=== PATIENT | male | born 1965 | race Caucasian/White ===

== ENCOUNTER 2017-11-23 17:58 | Observation (INO) | payer OTHER ==
[2017-11-23] MEDS ORDERED: SODIUM CHLORIDE 0.9% 1,000 ML IV STA ×2 (18:18)
[2017-11-23] MEDS ORDERED: LORazepam 2 MG/ML INJ IV STA (18:18)
[2017-11-23 18:37] LABS: INR 1.1 (<1.2); Partial Thromboplastin Time 26.8 sec (22.0-30.0); Prothrombin Time 10.4 sec (9.0-12.0)
--- NOTE | 2017-11-23 18:40 | ED ---
General Adult HPI - General Chief complaint: Dizziness Stated complaint: Chest Pain. Time Seen by Provider: 11/23/17 18:09 Source: patient Mode of arrival: EMS Limitations: no limitations - History of Present Illness Initial comments: This 52-year-old male presents with a complaint of feeling lightheaded. This occurred approximately 2 and half hours prior to arrival. He states that he had some palpitations and he felt presyncopal at points. This seemed to be worse when he was standing. He also had some shortness of breath but denies any chest pain. He states that he had numbness and tingling in his bilateral arms. He denies any chest tightness, chest burning, or chest pain whatsoever. He denies any abnormal sensations to his chest and this is in contrast to the nursing Notes. He denies any previous cardiac or pulmonary problems. He also states that he felt somewhat dizzy last evening while he was cleaning his baseboards. No other identifiable complaints or modifying factors. There is no leg pain or swelling or history of DVT or PE. He denies any history of anxiety reactions or panic attacks. He denies any current significant stress. - Related Data Home Medications Medication Instructions Recorded Confirmed Ibuprofen [Motrin Ib] 400 mg PO Q6HR PRN 11/23/17 11/23/17 Allergies Allergy/AdvReac Type Severity Reaction Status Date / Time Penicillins Allergy Swelling Verified 11/23/17 18:33 Review of Systems ROS Statement: Those systems with pertinent positive or pertinent negative responses have been documented in the HPI. ROS Other: All systems not noted in ROS Statement are negative. Past Medical History Past Medical History: No Reported History History of Any Multi-Drug Resistant Organisms: None Reported Past Surgical History: Cholecystectomy Additional Past Surgical History / Comment(s): vasectomy Past Psychological History: No Psychological Hx Reported Smoking Status: Current every day smoker Past Alcohol Use History: Occasional Past Drug Use History: None Reported General Exam - General Exam Comments Initial Comments: GENERAL: The patient is well nourished and well hydrated. VITAL SIGNS: Heart rate, blood pressure, respiratory rate reviewed as recorded in nurse's notes. EYES: Pupils are round and reactive. Extraocular movements are intact. No conjunctival / lid redness or swelling. ENT: No external evidence of injury, swelling, or ecchymosis. Airway is patent. Throat is clear. NECK: Nontender. No swelling or evidence of injury. No subcutaneous emphysema. Trachea is midline. No thyroid mass. HEART: Regular rate and rhythm. Good peripheral pulses. LUNGS/CHEST: Breath sounds clear and equal bilaterally. No rales, rhonchi, or wheezes. No ecchymosis, subcutaneous emphysema, or tenderness. ABDOMEN: Abdomen soft without tenderness. No palpable masses or organomegaly. No peritoneal signs. No abdominal wall swelling or ecchymosis. EXTREMITIES: No extremity tenderness. Normal muscle tone and function. No thoracolumbar tenderness. NEUROLOGIC: Sensation is grossly intact. Cranial nerve exam reveals face is symmetrical, tongue is midline, speech is clear. SKIN: No abrasions or ecchymosis is noted. No induration or masses noted. PSYCHIATRIC: Alert and oriented. Appropriate behavior and judgment. Limitations: no limitations Course Vital Signs 11/23/17 11/23/17 11/23/17 17:59 18:10 19:20 Temperature 98.1 F Pulse Rate 88 74 Pulse Rate [ 78 Sitting] Pulse Rate [ 90 Standing] Pulse Rate [ 73 Supine] Respiratory 20 18 Rate Blood Pressure 166/93 142/80 Blood Pressure 153/90 [Sitting] Blood Pressure 145/87 [Supine] O2 Sat by Pulse 97 98 Oximetry Medical Decision Making - Medical Decision Making The patient was seen and examined. All diagnostics were reviewed. The EKG shows a normal sinus rhythm at a rate of 74. There is no acute ST-T wave changes noted. The MD intervals 184, QRS duration is 90, and the QTC intervals 421. The patient did receive some Ativan intravenously. He later receives some aspirin as well as some Nitropaste for possible dyspnea related anginal equivalent. He also had a chest x-ray done which does not show any acute processes. The laboratory thus far has been fairly unremarkable. Possibility of this being related to acute coronary syndrome is possible. The possibility of a heart arrhythmia is possible as well. No arrhythmias noted less far in the ER. He states that he was unable to ambulate. It is felt as though he benefit from admission and further workup. He is agreeable. Case was discussed with internal medicine and they are agreeable with admission. - Lab Data Result diagrams: 11/23/17 18:06 Lab Results 11/23/17 11/23/17 11/23/17 Range/Units 18:06 18:06 18:06 PT 10.4 (9.0-12.0) sec INR 1.1 (<1.2) APTT 26.8 (22.0-30.0) sec Sodium 142 (137-145) mmol/L Potassium 3.9 (3.5-5.1) mmol/L Chloride 105 (98-107) mmol/L Carbon Dioxide 27 (22-30) mmol/L Anion Gap 10 mmol/L BUN 22 H (9-20) mg/dL Creatinine 0.97 (0.66-1.25) mg/dL Est GFR (MDRD) Af Amer >60 (>60 ml/min/1.73 sqM) Est GFR (MDRD) Non-Af >60 (>60 ml/min/1.73 sqM) Glucose 84 (74-99) mg/dL Calcium 10.1 (8.4-10.2) mg/dL Total Bilirubin 0.5 (0.2-1.3) mg/dL AST 18 (17-59) U/L ALT 28 (21-72) U/L Alkaline Phosphatase 54 (38-126) U/L Troponin I <0.012 (0.000-0.034) ng/mL Total Protein 6.9 (6.3-8.2) g/dL Albumin 4.1 (3.5-5.0) g/dL Disposition Clinical Impression: Weakness, Dyspnea, Hypertension, Palpitations, Dizziness Disposition: ADMITTED IP TO THIS [facility] Condition: Fair Time of Disposition: 20:04 Decision Date: 11/23/17 Decision Time: 20:04
[2017-11-23 18:43] LABS: ALT 28 U/L (21-72); AST 18 U/L (17-59); Albumin 4.1 g/dL (3.5-5.0); Alkaline Phosphatase 54 U/L (38-126); Anion Gap 10 mmol/L; Blood Urea Nitrogen 22 mg/dL (9-20); Calcium 10.1 mg/dL (8.4-10.2); Carbon Dioxide 27 mmol/L (22-30); Chloride 105 mmol/L (98-107); Glucose 84 mg/dL (74-99); Potassium 3.9 mmol/L (3.5-5.1); Sodium 142 mmol/L (137-145); Total Bilirubin 0.5 mg/dL (0.2-1.3); Total Protein 6.9 g/dL (6.3-8.2)
--- NOTE | 2017-11-23 19:10 | XR ---
EXAMINATION TYPE: XR chest 2V DATE OF EXAM: 11/23/2017 COMPARISON: NONE HISTORY: Dizziness TECHNIQUE: Frontal and lateral views of the chest are obtained. FINDINGS: There is no heart failure nor confluent pneumonic infiltrate. Costophrenic angles are mel r. There are chest leads. Bony thorax is intact. IMPRESSION: No active cardiopulmonary disease. Normal heart.
[2017-11-23 19:21] VITALS: RESP 18
[2017-11-23] MEDS ORDERED: NITROGLYCERIN OINT 1 INCH/GM PACKET TOPICAL STA (20:05)
[2017-11-23] MEDS ORDERED: ASPIRIN 81 MG PO STA (20:05)
[2017-11-23] MEDS ORDERED: NITROGLYCERIN SL TABS 0.4 MG TAB SUBLINGUAL PRN (20:18)
[2017-11-23] MEDS ORDERED: IBUPROFEN 400 MG TAB PO PRN (20:21)
[2017-11-23 21:16] VITALS: BMI 23.7
[2017-11-23] MEDS: METOPROLOL TARTRATE 25 MG TAB PO SCH (22:28)
[2017-11-23] MEDS: FAMOTIDINE 20 MG/2 ML VIAL IV SCH (22:28)
[2017-11-23] MEDS: NICOTINE 21MG/24HR PATCH TRANSDERM SCH (22:28)
[2017-11-23] MEDS: NITROGLYCERIN OINT 1 INCH/GM PACKET TOPICAL SCH (22:29)
[2017-11-23 23:13] LABS: Basophils % (A) 1 %; Eosinophils # (A) 0.1 k/uL (0-0.7); Eosinophils % (A) 1 %; HCT 44.8 % (39.0-53.0); HGB 14.6 gm/dL (13.0-17.5); Lymphocytes # (A) 2.1 k/uL (1.0-4.8); Lymphocytes % (A) 26 %; MCH 29.6 pg (25.0-35.0); MCHC 32.6 g/dL (31.0-37.0); MCV 90.7 fL (80.0-100.0); Monocytes # (A) 0.6 k/uL (0-1.0); Monocytes % (A) 7 %; Neutrophils % (A) 63 %; Platelet Count 273 k/uL (150-450); RBC 4.94 m/uL (4.30-5.90); RDW 13.8 % (11.5-15.5); WBC 7.8 k/uL (3.8-10.6)
[2017-11-24 01:58] LABS: Creatine Kinase 119 U/L (55-170)
[2017-11-24 02:09] LABS: Troponin I <0.012 ng/mL (0.000-0.034)
[2017-11-24] MEDS: NITROGLYCERIN OINT 1 INCH/GM PACKET TOPICAL SCH (05:32)
[2017-11-24 07:42] LABS: Cholesterol 151 mg/dL (<200); HDL Cholesterol 35 mg/dL (40-60); LDL Cholesterol,Calculated 94 mg/dL (0-99); Triglycerides 112 mg/dL (<150)
[2017-11-24 07:54] LABS: Creatine Kinase 104 U/L (55-170)
[2017-11-24 08:07] LABS: Creatine Kinase MB 0.9 ng/mL (0.0-2.4); Troponin I <0.012 ng/mL (0.000-0.034)
[2017-11-24] MEDS ORDERED: ENOXAPARIN 40 MG/0.4 ML SYRINGE SQ SCH (09:00)
[2017-11-24] MEDS ORDERED: ASPIRIN 325 MG TAB PO SCH (09:00)
--- NOTE | 2017-11-24 09:04 | P.CRDCN ---
History of Present Illness Consult date: 11/24/17 Chief complaint: Palpitation History of present illness: This is a pleasant 52-year-old gentleman with no significant past medical history presented to the hospital complaining of palpitations. The patient has been experiencing palpitations for long time but for the last 24 hours it was more prominent and was constant in the chest. He did not have any symptoms of chest pain or discomfort with it but he felt dizzy and lightheaded and almost passing out. He is not aware of any prior history of coronary artery disease or congestive heart failure or cardiac arrhythmia and never seen any commercial loan processor in the past. Beside that he does not have any diabetes or hypertension or dyslipidemia. The patient does smoke and has no family history of coronary artery disease. The EKG showed sinus rhythm without any significant ST or T-wave abnormalities. The cardiac enzymes were checked and came in to be unremarkable. The chest x- ray did not show any acute abnormalities. Past Medical History Past Medical History: No Reported History History of Any Multi-Drug Resistant Organisms: None Reported Past Surgical History: Cholecystectomy Additional Past Surgical History / Comment(s): vasectomy Past Anesthesia/Blood Transfusion Reactions: No Reported Reaction Smoking Status: Current every day smoker - Past Family History Father Additional Family Medical History / Comment(s): heart issues with blood vessels. Mother Family Medical History: No Reported History Medications and Allergies Home Medications Medication Instructions Recorded Confirmed Type Ibuprofen [Motrin Ib] 400 mg PO Q6HR PRN 11/23/17 11/23/17 History Allergies Allergy/AdvReac Type Severity Reaction Status Date / Time Penicillins Allergy Swelling Verified 11/23/17 21:06 Physical Exam Vitals: Vital Signs Temp Pulse Pulse Pulse Pulse Pulse Resp 11/24/17 08:00 98.0 F 55 L 18 11/24/17 04:00 18 11/24/17 03:41 98 F 60 18 11/24/17 00:00 18 11/23/17 22:30 77 81 73 18 11/23/17 21:10 18 11/23/17 21:04 97.4 F L 67 18 11/23/17 20:44 97.8 F 73 18 11/23/17 19:20 74 18 11/23/17 18:10 78 90 73 11/23/17 17:59 98.1 F 88 20 BP BP BP BP BP Pulse Ox 11/24/17 08:00 93/51 96 11/24/17 04:00 11/24/17 03:41 103/56 94 L 11/24/17 00:00 11/23/17 22:30 118/72 123/74 129/76 98 11/23/17 21:10 11/23/17 21:04 143/85 97 11/23/17 20:44 157/94 97 11/23/17 19:20 142/80 98 11/23/17 18:10 153/90 145/87 11/23/17 17:59 166/93 97 Intake and Output 11/23/17 11/24/17 11/24/17 22:59 06:59 14:59 Intake Total 250 Balance 250 Intake: Oral 250 Other: # Voids 1 Weight 83.9 kg - Constitutional General appearance: no acute distress - Respiratory Respiratory: bilateral: CTA - Cardiovascular Rhythm: regular Heart sounds: normal: S1, S2 Results 11/23/17 18:06 11/23/17 18:06 Cardiac Enzymes 11/23/17 11/23/17 11/24/17 Range/Units 18:06 18:06 01:10 AST 18 (17-59) U/L CK-MB (CK-2) 1.0 (0.0-2.4) ng/mL Troponin I <0.012 <0.012 (0.000-0.034) ng/mL 11/24/17 Range/Units 06:23 AST (17-59) U/L CK-MB (CK-2) 0.9 (0.0-2.4) ng/mL Troponin I <0.012 (0.000-0.034) ng/mL Coagulation 11/23/17 Range/Units 18:06 PT 10.4 (9.0-12.0) sec APTT 26.8 (22.0-30.0) sec Lipids 11/24/17 Range/Units 06:23 Triglycerides 112 (<150) mg/dL Cholesterol 151 (<200) mg/dL HDL Cholesterol 35 L (40-60) mg/dL CBC 11/23/17 Range/Units 18:06 WBC 7.8 (3.8-10.6) k/uL RBC 4.94 (4.30-5.90) m/uL Hgb 14.6 (13.0-17.5) gm/dL Hct 44.8 (39.0-53.0) % Plt Count 273 (150-450) k/uL Comprehensive Metabolic Panel 11/23/17 Range/Units 18:06 Sodium 142 (137-145) mmol/L Potassium 3.9 (3.5-5.1) mmol/L Chloride 105 (98-107) mmol/L Carbon Dioxide 27 (22-30) mmol/L BUN 22 H (9-20) mg/dL Creatinine 0.97 (0.66-1.25) mg/dL Glucose 84 (74-99) mg/dL Calcium 10.1 (8.4-10.2) mg/dL AST 18 (17-59) U/L ALT 28 (21-72) U/L Alkaline Phosphatase 54 (38-126) U/L Total Protein 6.9 (6.3-8.2) g/dL Albumin 4.1 (3.5-5.0) g/dL Current Medications Generic Name Dose Route Start Last Admin Trade Name Freq PRN Reason Stop Dose Admin Aspirin 325 mg 11/24/17 09:00 Aspirin PO DAILY [facility] Enoxaparin Sodium 40 mg 11/24/17 09:00 Lovenox SQ DAILY [facility] Famotidine 20 mg 11/23/17 21:00 11/23/17 22:28 Pepcid IV 20 mg Q12HR [facility] Administration Ibuprofen 400 mg 11/23/17 20:21 Motrin PO Q6HR PRN Pain Metoprolol Tartrate 25 mg 11/23/17 21:00 11/23/17 22:28 Lopressor PO 25 mg BID [facility] Administration Nicotine 1 patch 11/23/17 21:30 11/23/17 22:28 Habitrol 21mg/24hr Patch TRANSDERM 1 patch DAILY [facility] Administration Nitroglycerin 1 inch 11/24/17 00:00 11/24/17 05:32 Nitro-Bid Oint TOPICAL Not Given Q6HR [facility] Nitroglycerin 0.4 mg 11/23/17 20:18 Nitrostat SUBLINGUAL Q5M PRN Chest Pain Intake and Output 11/23/17 11/24/17 11/24/17 22:59 06:59 14:59 Intake Total 250 Balance 250 Intake: Oral 250 Other: # Voids 1 Weight 83.9 kg 11/23/17 18:06 11/23/17 18:06 Assessment and Plan Assessment: Assessment #1 palpitations #2 presyncope Plan #1 the patient was ruled out for acute coronary event #2 follow-up with the echocardiogram #3 obtain a treadmill exercise stress test #4 follow-up with the patient. Thank you for allowing us participate in his care
--- NOTE | 2017-11-24 09:54 | ECHOF ---
Referral Reason:sob MEASUREMENTS -------- HEIGHT: 182.9 cm WEIGHT: 83.5 kg BP: 103/56 IVSd: 1.2 cm (0.6 - 1.1) LVIDd: 3.7 cm (3.9 - 5.3) LVPWd: 1.3 cm (0.6 - 1.1) IVSs: 1.5 cm LVIDs: 2.5 cm LVPWs: 1.7 cm Ao Diam: 3.5 cm (2.0 - 3.7) AV Cusp: 1.8 cm (1.5 - 2.6) LA Diam: 3.6 cm (2.7 - 3.8) MV EXCURSION: 25.336 mm (> 18.000) MV EF SLOPE: 141 mm/s (70 - 150) EPSS: 1.6 cm MV E Rahat: 0.71 m/s MV DecT: 203 ms MV A Rahat: 0.56 m/s MV E/A Ratio: 1.27 RAP: 5.00 mmHg RVSP: 20.65 mmHg FINDINGS -------- Sinus rhythm with extra systolic beats. This was a technically good study. The left ventricular size is normal. There is mild concentric left ventricular hypertrophy. Overa ll left ventricular systolic function is normal with, an EF between 55 - 60 %. The right ventricle is normal in size and function. The left atrium is normal in size. The right atrium is normal in size. The aortic valve is trileaflet, and appears structurally normal. No aortic stenosis or regurgitation. The mitral valve leaflets are mildly thickened. Mild mitral regurgitation is present. Mild tricuspid regurgitation present. The right ventricular systolic pressure, as measured by Doppl er, is 20.65mmHg. Pulmonic valve appears structurally normal. The aortic root size is normal. Normal inferior vena cava with normal inspiratory collapse consistent with estimated right atrial pre ssure of 5 mmHg. The pericardium is normal. CONCLUSIONS -------- 1. Sinus rhythm with extra systolic beats. 2. This was a technically good study. 3. The left ventricular size is normal. 4. There is mild concentric left ventricular hypertrophy. 5. Overall left ventricular systolic function is normal with, an EF between 55 - 60 %. 6. The right ventricle is normal in size and function. 7. The left atrium is normal in size. 8. The right atrium is normal in size. 9. The aortic valve is trileaflet, and appears structurally normal. No aortic stenosis or regurgitati on. 10. The mitral valve leaflets are mildly thickened. 11. Mild mitral regurgitation is present. 12. Mild tricuspid regurgitation present. 13. The right ventricular systolic pressure, as measured by Doppler, is 20.65mmHg. 14. Pulmonic valve appears structurally normal. 15. The aortic root size is normal. 16. Normal inferior vena cava with normal inspiratory collapse consistent with estimated right atrial pressure of 5 mmHg. 17. The pericardium is normal. CLAIM ANALYST: Rissa Thompson RDCS
--- NOTE | 2017-11-24 11:20 | EST ---
EXERCISE STRESS DATE OF SERVICE: 11/24/2017 AGE: 52 SEX: Male HT: 6'2" WT: 185 PROTOCOL: Barrie. STAGE: III DURATION OF EXERCISE: 11 minutes HEART RATE REST: 64 BLOOD PRESSURE REST: 111/76 MAXIMUM HEART RATE ACHIEVED: 148 MAXIMUM BLOOD PRESSURE: 195/78 85% MPHR: 145 100% MPHR: 170 METS: 12.1 INDICATION OF STUDY: Chest pain. CLINICAL INFORMATION: STRESS DATA: Pretesting physical examination showed heart rate of 64, pressure is 111/76 mmHg. Baseline EKG shows sinus mechanism. The patient exercised on the treadmill according to Barrie protocol for a total of 11 minute and achieved 12.1 METs. Max heart rate was 148, which is about 87% of maximum predicted heart rate. Maximum blood pressure was 195/78 mmHg. Clinically the patient did not have any symptoms of chest pain or discomfort but he developed some shortness of breath with exertion. The EKG showed about 0.[address]-segment depression did not meet the criteria for ischemia. CONCLUSION: 1. Excellent exercise capacity. 2. Mild EKG changes in response to exercise, did not meet the criteria for ischemia. MMODL / IJN: [id number] /
[2017-11-24 11:46] VITALS: BP 109/71; PULSE 72; TEMP 97.6
[2017-11-24] MEDS: NICOTINE 21MG/24HR PATCH TRANSDERM SCH (13:02)
[2017-11-24] MEDS: METOPROLOL TARTRATE 25 MG TAB PO SCH (13:03)
[2017-11-24] MEDS: FAMOTIDINE 20 MG/2 ML VIAL IV SCH (13:03)
--- NOTE | 2017-11-24 13:12 | P.DS ---
Providers Date of admission: 11/23/17 20:18 Attending physician: Garcia Faulkner Consults: 11/24/17 08:02 Consult Physician Routine Consulting Provider: Jarrod Whitfield Consult Reason/Comments: palpitations Do you want consulting provider notified?: Yes Primary care physician: Curry Knutson [facility] Course: please refer to my HPI Patient Condition at Discharge: Fair Plan - Discharge Summary New Discharge Prescriptions: New Nicotine 21Mg/24Hr Patch [Habitrol] 1 each TRANSDERM DAILY #14 patch No Action Ibuprofen [Motrin Ib] 400 mg PO Q6HR PRN PRN Reason: Pain Discharge Medication List Ibuprofen [Motrin Ib] 400 mg PO Q6HR PRN 11/23/17 [History] Nicotine 21Mg/24Hr Patch [Habitrol] 1 each TRANSDERM DAILY #14 patch 11/24/17 [ Rx] Follow up Appointment(s)/Referral(s): Zenia Zpaien MD [Primary Care Provider] - 3 Days Jarrod Whitfield MD [STAFF PHYSICIAN] - 1 Week (Follow up appointment is December 15 at 3:45pm) Patient Instructions/Handouts: Palpitations (GEN), Syncope (GEN) Discharge Disposition: HOME SELF-CARE
--- NOTE | 2017-11-24 13:12 | P.HPIM ---
History of Present Illness 52-year-old gentleman with no known sick and past medical history came in with complaints of palpitations irregular heartbeat feeling, patient's EKG showed normal sinus rhythm patient was lightheaded was about to pass out never had any syncopal episode. Patient doesn't have any previous history of congestive heart failure. Cardiac evaluated the patient and recommended a stress test. Patient was started on metoprolol from in ER. Patient 24-hour monitoring did not show any significant rhythm abnormalities because of which metoprolol is not being continued particularly because of his mild hypotension. Patient is a smoker requesting 13 patches which will be provided to the patient. Patient underwent stress us if that is negative patient was will be discharged to follow Dr. Whitfield as an outpatient if he continues to have similar episodes patient will need Holter monitoring. Troponins are negative Review of Systems REVIEW OF SYSTEMS: CONSTITUTIONAL: No fever, no malaise, no fatigue. HEENT: No recent visual problems or hearing problems. Denied any sore throat. CARDIOVASCULAR: No chest pain, orthopnea, PND, PULMONARY: No shortness of breath, no cough, no hemoptysis. GASTROINTESTINAL: No diarrhea, no nausea, no vomiting, no abdominal pain. Normoactive bowel sounds. NEUROLOGICAL: No headaches, no weakness, no numbness. HEMATOLOGICAL: Denies any bleeding or petechiae. GENITOURINARY: Denies any burning micturition, frequency, or urgency. MUSCULOSKELETAL/RHEUMATOLOGICAL: Denies any joint pain, swelling, or any muscle pain. ENDOCRINE: Denies any polyuria or polydipsia. The rest of the 14-point review of systems is negative. Past Medical History Past Medical History: No Reported History History of Any Multi-Drug Resistant Organisms: None Reported Past Surgical History: Cholecystectomy Additional Past Surgical History / Comment(s): vasectomy Past Anesthesia/Blood Transfusion Reactions: No Reported Reaction Smoking Status: Current every day smoker - Past Family History Father Additional Family Medical History / Comment(s): heart issues with blood vessels. Mother Family Medical History: No Reported History Medications and Allergies Home Medications Medication Instructions Recorded Confirmed Type Ibuprofen [Motrin Ib] 400 mg PO Q6HR PRN 11/23/17 11/23/17 History Nicotine 21Mg/24Hr Patch [Habitrol] 1 each TRANSDERM DAILY #14 patch 11/24/17 Rx Allergies Allergy/AdvReac Type Severity Reaction Status Date / Time Penicillins Allergy Swelling Verified 11/23/17 21:06 Physical Exam Vitals: Vital Signs Temp Pulse Pulse Pulse Pulse Pulse Resp 11/24/17 11:45 97.6 F 72 18 11/24/17 08:00 98.0 F 55 L 18 11/24/17 04:00 18 11/24/17 03:41 98 F 60 18 11/24/17 00:00 18 11/23/17 22:30 77 81 73 18 11/23/17 21:10 18 11/23/17 21:04 97.4 F L 67 18 11/23/17 20:44 97.8 F 73 18 11/23/17 19:20 74 18 11/23/17 18:10 78 90 73 11/23/17 17:59 98.1 F 88 20 BP BP BP BP BP Pulse Ox 11/24/17 11:45 109/71 96 11/24/17 08:00 93/51 96 11/24/17 04:00 11/24/17 03:41 103/56 94 L 11/24/17 00:00 11/23/17 22:30 118/72 123/74 129/76 98 11/23/17 21:10 11/23/17 21:04 143/85 97 11/23/17 20:44 157/94 97 11/23/17 19:20 142/80 98 11/23/17 18:10 153/90 145/87 11/23/17 17:59 166/93 97 Intake and Output 11/23/17 11/24/17 11/24/17 22:59 06:59 14:59 Intake Total 250 Balance 250 Intake: Oral 250 Other: Voiding Method Toilet # Voids 1 Weight 83.9 kg PHYSICAL EXAMINATION: GENERAL: The patient is alert and oriented x3, not in any acute distress. Well developed, well nourished. HEENT: Pupils are round and equally reacting to light. EOMI. No scleral icterus. No conjunctival pallor. Normocephalic, atraumatic. No pharyngeal erythema. No thyromegaly. CARDIOVASCULAR: S1 and S2 present. No murmurs, rubs, or gallops. PULMONARY: Chest is clear to auscultation, no wheezing or crackles. ABDOMEN: Soft, nontender, nondistended, normoactive bowel sounds. No palpable organomegaly. MUSCULOSKELETAL: No joint swelling or deformity. EXTREMITIES: No cyanosis, clubbing, or pedal edema. NEUROLOGICAL: Gross neurological examination did not reveal any focal deficits. SKIN: No rashes. Results CBC & Chem 7: 11/23/17 18:06 11/23/17 18:06 Labs: Abnormal Lab Results - Last 24 Hours (Table) 11/23/17 11/24/17 Range/Units 18:06 06:23 BUN 22 H (9-20) mg/dL HDL Cholesterol 35 L (40-60) mg/dL Thrombosis Risk Factor Assmnt - Choose All That Apply Each Factor Represents 1 point: Age 41-60 years Thrombosis Risk Factor Assessment Total Risk Factor Score: 1 Thrombosis Risk Factor Assessment Level: Low Risk Assessment and Plan Plan: -palpitations and presyncopal episode: Etiology unclear 24-hour monitoring did not show any significant abnormality. Follow with the cardiology and primary care physician as an outpatient echocardiogram was often without any significant abnormality. unsure whether patient had PVCs are atrial flutter or fibrillation. -ruled out acute coronary event -ruled out acute coronary ischemia as an etiology for palpitations
== END 2017-11-24 12:59 | disposition home or self-care (01) ==
LOC: EC 17:58 → 3OBS 20:18
PROVIDERS: ADMIT Hospitalist; ATTEND Hospitalist
DX: R00.2 Palpitations (principal); R55 Syncope and collapse; R42 Dizziness and giddiness; R06.00 Dyspnea, unspecified; R03.0 Elevated blood-pressure reading, without diagnosis of hypertension; F17.200 Nicotine dependence, unspecified, uncomplicated; Z88.0 Allergy status to penicillin
CPT/HCPCS: 99285 ×2; 96374 ×2; 96361 ×2; 96375; 36415; 93005; 93017; 93306; 80061; 80053; 82550; 82553; 84484 ×2; 85025; 85610; 85730; 71046; G0378 ×2; S4990; J2060

== ENCOUNTER 2019-11-18 00:23 | Emergency (ER) | payer OTHER ==
[2019-11-18 00:32] VITALS: BP 169/105; PULSE 87; RESP 20; TEMP 98.3
--- NOTE | 2019-11-18 00:51 | ED ---
Lower Extremity Injury HPI - General Chief Complaint: Extremity Injury, Lower Stated Complaint: R Foot Pain Time Seen by Provider: 11/18/19 00:34 Source: patient Mode of arrival: ambulatory Limitations: no limitations - History of Present Illness Initial Comments: Patient is a 54-year-old male presenting to the emergency Department with complaints of right foot pain that started about 4 PM earlier today. Patient states he had on steel toe boots when he went to kick something off his boot and kicks Hi-Lo machine. Patient states the toe of the boot rolled upwards and he's been having pain in his right big toe and his distal foot since. There is mild swelling and bruising of the right big toe. He denies any other complaints today. He has no previous history of right foot surgeries or injuries. Upon arrival to ER, his vital signs are stable. - Related Data Home Medications Medication Instructions Recorded Confirmed Ibuprofen [Motrin Ib] 400 mg PO Q6HR PRN 11/23/17 11/23/17 Previous Rx's Medication Instructions Recorded Nicotine 21Mg/24Hr Patch [Habitrol] 1 each TRANSDERM DAILY #14 patch 11/24/17 Allergies Allergy/AdvReac Type Severity Reaction Status Date / Time Penicillins Allergy Swelling Verified 11/18/19 00:32 Review of Systems ROS Statement: Those systems with pertinent positive or pertinent negative responses have been documented in the HPI. ROS Other: All systems not noted in ROS Statement are negative. Past Medical History Past Medical History: No Reported History History of Any Multi-Drug Resistant Organisms: None Reported Past Surgical History: Cholecystectomy Additional Past Surgical History / Comment(s): vasectomy Past Anesthesia/Blood Transfusion Reactions: No Reported Reaction Past Psychological History: No Psychological Hx Reported Smoking Status: Former smoker Past Alcohol Use History: Occasional Past Drug Use History: None Reported - Past Family History Father Additional Family Medical History / Comment(s): heart issues with blood vessels. Mother Family Medical History: No Reported History General Exam - General Exam Comments Initial Comments: GENERAL: Well-appearing, well-nourished and in no acute distress. HEAD: Atraumatic, normocephalic. EYES: Pupils equal round and reactive to light, extraocular movements intact, sclera anicteric, conjunctiva are normal. ENT: Moist mucous membranes. NECK: Normal range of motion, supple without lymphadenopathy or JVD. LUNGS: Breath sounds clear to auscultation bilaterally and equal. No wheezes rales or rhonchi. HEART: Regular rate and rhythm without murmurs, rubs or gallops. EXTREMITIES: Pain with palpation of the medial aspect of the right big toe, patient has decreased range of motion of the right toes secondary to pain. There is some mild swelling and bruising along the medial aspect. Patient is neurovascular intact. There is no pain in the ankle or distal leg. PSYCH: Normal mood, normal affect. SKIN: Warm, Dry, normal turgor, no rashes or lesions noted. Limitations: no limitations Course Vital Signs 11/18/19 00:30 Temperature 98.3 F Pulse Rate 87 Respiratory 20 Rate Blood Pressure 169/105 O2 Sat by Pulse 96 Oximetry Medical Decision Making - Medical Decision Making Patient is a 54-year-old male presenting of right foot pain after he kicked a high-Lo. X-rays of the right foot show a small chip fracture of the big toe at the first MPJ. No significant displacement, no other fractures. I discussed these findings with the patient. Recommended patient to wear a surgical Bo[place] patient refused. Patient will wear supportive shoes. He will follow up with PCP and 1-2 weeks if symptoms aren't improving. He still for discharge at this time and he is in agreement with this plan of care. Disposition Clinical Impression: Fracture of first metatarsal bone of right foot Disposition: HOME SELF-CARE Condition: Stable Instructions (If sedation given, give patient instructions): Toe Fracture (ED) Additional Instructions: Please return to the Emergency Department if symptoms worsen or any other concerns. Use ice on the area as well as Motrin for pain relief. Wear supportive shoe. Follow-up with PCP in 2-3 weeks if symptoms are persisting. Is patient prescribed a controlled substance at d/c from ED?: No Referrals: Zenia Zapien MD [Primary Care Provider] - 1-2 days
--- NOTE | 2019-11-18 01:10 | XR ---
EXAMINATION TYPE: XR foot complete RT DATE OF EXAM: 11/18/2019 COMPARISON: NONE HISTORY: Foot pain TECHNIQUE: 3 views FINDINGS: Metatarsals are intact. There is a small 4 mm chip fracture of the medial base of the proxi mal phalanx of the big toe. Fractures probably acute. IMPRESSION: Small chip fracture of the big toe at the first MP joint as above. No dislocation.
== END 2019-11-18 01:32 | disposition home or self-care (01) ==
LOC: EC 00:23
DX: S92.311A Displaced fracture of first metatarsal bone, right foot, initial encounter for closed fracture (principal); Z87.891 Personal history of nicotine dependence; Z88.0 Allergy status to penicillin; W22.8XXA Striking against or struck by other objects, initial encounter; Y93.89 Activity, other specified; Z53.20 Procedure and treatment not carried out because of patient's decision for unspecified reasons
CPT/HCPCS: 99283

== ENCOUNTER 2020-03-17 07:53 | Inpatient (IN) | payer OTHER ==
[2020-03-17] MEDS ORDERED: SODIUM CHLORIDE 0.9% 500 ML 500 ML IV STA (08:11)
[2020-03-17] MEDS ORDERED: ONDANSETRON 4 MG/2 ML VIAL IVP STA (08:11)
[2020-03-17] MEDS ORDERED: MORPHINE SULFATE 4 MG/ML SYRINGE IV STA (08:11)
--- NOTE | 2020-03-17 08:31 | ED ---
Abdominal Pain HPI - General Chief Complaint: Abdominal Pain Stated Complaint: abd pain Time Seen by Provider: 03/17/20 07:55 Source: patient Mode of arrival: ambulatory Limitations: no limitations - History of Present Illness Initial Comments: The patient is a 54-year-old male with no past medical history presents to the emergency room with reported right lower quadrant abdominal pain. Patient reports that it started on Thursday and has been getting progressive worse in nature. He describes it as a cramping sensation which is worse with movement. He denies any associated nausea or vomiting. Denies dysuria, hematuria or difficulty voiding. Denies constipation, diarrhea, melenic stools or hematochezia. Patient's last bowel movement was this morning and was normal in color and consistency for him. Patient continues to pass gas. Denies any back or flank pain. No abdominal trauma. He took some Tylenol at home approximately an hour ago however had no improvement in his symptoms. He denies fevers or chills. Patient has had a cholecystectomy. There are no other alleviating, precipitating or modifying factors - Related Data Home Medications Medication Instructions Recorded Confirmed No Known Home Medications 03/17/20 03/17/20 Allergies Allergy/AdvReac Type Severity Reaction Status Date / Time Penicillins Allergy Swelling Verified 03/17/20 10:04 Review of Systems ROS Statement: Those systems with pertinent positive or pertinent negative responses have been documented in the HPI. ROS Other: All systems not noted in ROS Statement are negative. Past Medical History Past Medical History: No Reported History History of Any Multi-Drug Resistant Organisms: None Reported Past Surgical History: Cholecystectomy Additional Past Surgical History / Comment(s): vasectomy Past Anesthesia/Blood Transfusion Reactions: No Reported Reaction Past Psychological History: No Psychological Hx Reported Smoking Status: Former smoker Past Alcohol Use History: Occasional Past Drug Use History: None Reported - Past Family History Father Additional Family Medical History / Comment(s): heart issues with blood vessels. Mother Family Medical History: No Reported History General Exam Limitations: no limitations General appearance: alert, in no apparent distress Head exam: Present: atraumatic, normocephalic, normal inspection Eye exam: Present: normal appearance, PERRL, EOMI. Absent: scleral icterus, conjunctival injection, periorbital swelling ENT exam: Present: normal exam, mucous membranes moist Neck exam: Present: normal inspection. Absent: tenderness, meningismus, lymphadenopathy Respiratory exam: Present: normal lung sounds bilaterally. Absent: respiratory distress, wheezes, rales, rhonchi, stridor Cardiovascular Exam: Present: regular rate, normal rhythm, normal heart sounds. Absent: systolic murmur, diastolic murmur, rubs, gallop, clicks GI/Abdominal exam: Present: soft, tenderness (right lower quadrant), normal bowel sounds. Absent: distended, guarding, rebound, rigid Extremities exam: Present: normal inspection, full ROM, normal capillary refill. Absent: tenderness, pedal edema, joint swelling, calf tenderness Back exam: Present: normal inspection Neurological exam: Present: alert, oriented X3, CN II-XII intact Psychiatric exam: Present: normal affect, normal mood Skin exam: Present: warm, dry, intact, normal color. Absent: rash Course Vital Signs 03/17/20 03/17/20 03/17/20 07:55 07:57 08:57 Temperature 98.3 F Pulse Rate 89 74 Respiratory 18 20 20 Rate Blood Pressure 149/107 146/100 O2 Sat by Pulse 98 97 Oximetry 03/17/20 03/17/20 03/17/20 09:00 10:31 10:32 Temperature Pulse Rate 74 77 77 Respiratory 20 20 20 Rate Blood Pressure 146/100 143/99 143/99 O2 Sat by Pulse 97 97 Oximetry Medical Decision Making - Medical Decision Making Upon arrival the patient was placed into room 4. Thorough history and physical exam is performed. Peripheral IV was established. Patient was given 4 mg of morphine for pain control and 4 mg of Zofran for nausea. X-ray studies were drawn. CT of the patient's abdomen was performed which demonstrates a diverticular abscess versus colitis at the hepatic flexure and ascending colon. Patient was reevaluated and resting comfortably. I discussed diagnosis, differential treatment options. Recommend hospital admission for which patient did agree. I called and discussed the case with Dr. Oglesby accepted admission. Blood cultures were drawn the patient was initiated on Rocephin and Flagyl. Patient is currently awaiting a bed on the floor - Lab Data Result diagrams: 03/18/20 07:23 03/18/20 07:23 Lab Results 03/17/20 03/17/20 03/17/20 Range/Units 08:20 08:20 08:20 WBC 10.1 (3.8-10.6) k/uL RBC 5.42 (4.30-5.90) m/uL Hgb 15.5 (13.0-17.5) gm/dL Hct 47.3 (39.0-53.0) % MCV 87.3 (80.0-100.0) fL MCH 28.6 (25.0-35.0) pg MCHC 32.8 (31.0-37.0) g/dL RDW 12.9 (11.5-15.5) % Plt Count 286 (150-450) k/uL Neutrophils % 69 % Lymphocytes % 20 % Monocytes % 6 % Eosinophils % 2 % Basophils % 1 % Neutrophils # 7.0 (1.3-7.7) k/uL Lymphocytes # 2.0 (1.0-4.8) k/uL Monocytes # 0.6 (0-1.0) k/uL Eosinophils # 0.2 (0-0.7) k/uL Basophils # 0.1 (0-0.2) k/uL PT 10.3 (9.0-12.0) sec INR 1.0 (<1.2) APTT 26.9 (22.0-30.0) sec Sodium 137 (137-145) mmol/L Potassium 4.0 (3.5-5.1) mmol/L Chloride 107 (98-107) mmol/L Carbon Dioxide 22 (22-30) mmol/L Anion Gap 8 mmol/L BUN 14 (9-20) mg/dL Creatinine 0.88 (0.66-1.25) mg/dL Est GFR (CKD-EPI)AfAm >90 (>60 ml/min/1.73 sqM) Est GFR (CKD-EPI)NonAf >90 (>60 ml/min/1.73 sqM) Glucose 119 H (74-99) mg/dL Plasma Lactic Acid Ronnie (0.7-2.0) mmol/L Calcium 9.3 (8.4-10.2) mg/dL Total Bilirubin 0.5 (0.2-1.3) mg/dL AST 19 (17-59) U/L ALT 23 (4-49) U/L Alkaline Phosphatase 63 (38-126) U/L Total Protein 7.4 (6.3-8.2) g/dL Albumin 4.3 (3.5-5.0) g/dL Lipase 61 (23-300) U/L Urine Color Urine Appearance (Clear) Urine pH (5.0-8.0) Ur Specific [place] (1.001-1.035) Urine Protein (Negative) Urine Glucose (UA) (Negative) Urine Ketones (Negative) Urine Blood (Negative) Urine Nitrite (Negative) Urine Bilirubin (Negative) Urine Urobilinogen (<2.0) mg/dL Ur Leukocyte Esterase (Negative) 03/17/20 03/17/20 Range/Units 08:20 09:23 WBC (3.8-10.6) k/uL RBC (4.30-5.90) m/uL Hgb (13.0-17.5) gm/dL Hct (39.0-53.0) % MCV (80.0-100.0) fL MCH (25.0-35.0) pg MCHC (31.0-37.0) g/dL RDW (11.5-15.5) % Plt Count (150-450) k/uL Neutrophils % % Lymphocytes % % Monocytes % % Eosinophils % % Basophils % % Neutrophils # (1.3-7.7) k/uL Lymphocytes # (1.0-4.8) k/uL Monocytes # (0-1.0) k/uL Eosinophils # (0-0.7) k/uL Basophils # (0-0.2) k/uL PT (9.0-12.0) sec INR (<1.2) APTT (22.0-30.0) sec Sodium (137-145) mmol/L Potassium (3.5-5.1) mmol/L Chloride (98-107) mmol/L Carbon Dioxide (22-30) mmol/L Anion Gap mmol/L BUN (9-20) mg/dL Creatinine (0.66-1.25) mg/dL Est GFR (CKD-EPI)AfAm (>60 ml/min/1.73 sqM) Est GFR (CKD-EPI)NonAf (>60 ml/min/1.73 sqM) Glucose (74-99) mg/dL Plasma Lactic Acid Ronnie 0.9 (0.7-2.0) mmol/L Calcium (8.4-10.2) mg/dL Total Bilirubin (0.2-1.3) mg/dL AST (17-59) U/L ALT (4-49) U/L Alkaline Phosphatase (38-126) U/L Total Protein (6.3-8.2) g/dL Albumin (3.5-5.0) g/dL Lipase (23-300) U/L Urine Color Yellow Urine Appearance Clear (Clear) Urine pH 5.5 (5.0-8.0) Ur Specific [place] 1.043 H (1.001-1.035) Urine Protein Negative (Negative) Urine Glucose (UA) Negative (Negative) Urine Ketones Negative (Negative) Urine Blood Negative (Negative) Urine Nitrite Negative (Negative) Urine Bilirubin Negative (Negative) Urine Urobilinogen <2.0 (<2.0) mg/dL Ur Leukocyte Esterase Negative (Negative) - EKG Data EKG Comments: EKG demonstrates normal sinus rhythm with ventricular rate 77. MT interval 180. QRS 82. QTC of 420. No acute ST segment elevations or depressions concerning for ischemic changes. Her T-wave in V5 and V6 Disposition Clinical Impression: Abdominal pain, Intestinal diverticular abscess Disposition: ADMITTED IP TO THIS HOSP Condition: Stable Is patient prescribed a controlled substance at d/c from ED?: No Decision to Admit Reason: Admit from EC Decision Date: 03/17/20 Decision Time: 10:14
[2020-03-17 08:33] LABS: Basophils # (A) 0.1 k/uL (0-0.2); Basophils % (A) 1 %; Eosinophils # (A) 0.2 k/uL (0-0.7); Eosinophils % (A) 2 %; HCT 47.3 % (39.0-53.0); HGB 15.5 gm/dL (13.0-17.5); Lymphocytes % (A) 20 %; MCH 28.6 pg (25.0-35.0); MCHC 32.8 g/dL (31.0-37.0); MCV 87.3 fL (80.0-100.0); Mean Platelet Volume 7.1; Monocytes # (A) 0.6 k/uL (0-1.0); Monocytes % (A) 6 %; Neutrophils % (A) 69 %; Platelet Count 286 k/uL (150-450); RBC 5.42 m/uL (4.30-5.90); RDW 12.9 % (11.5-15.5); WBC 10.1 k/uL (3.8-10.6)
[2020-03-17 08:41] LABS: Partial Thromboplastin Time 26.9 sec (22.0-30.0); Prothrombin Time 10.3 sec (9.0-12.0)
[2020-03-17 08:44] LABS: ALT 23 U/L (4-49); AST 19 U/L (17-59); African American GFR (CKD) >90 (>60 ml/min/1.73 sqM); Albumin 4.3 g/dL (3.5-5.0); Alkaline Phosphatase 63 U/L (38-126); Anion Gap 8 mmol/L; Blood Urea Nitrogen 14 mg/dL (9-20); Calcium 9.3 mg/dL (8.4-10.2); Carbon Dioxide 22 mmol/L (22-30); Chloride 107 mmol/L (98-107); Glucose 119 mg/dL (74-99); Non-African American GFR(CKD) >90 (>60 ml/min/1.73 sqM); Sodium 137 mmol/L (137-145); Total Bilirubin 0.5 mg/dL (0.2-1.3); Total Protein 7.4 g/dL (6.3-8.2)
[2020-03-17 09:40] LABS: Appearance,Urine Clear (Clear); Bilirubin,Urine Negative (Negative); Blood,Urine Negative (Negative); Color,Urine Yellow; Glucose,Urine (UA) Negative (Negative); Ketones,Urine Negative (Negative); Leukocyte Esterase,Urine Negative (Negative); Nitrite,Urine Negative (Negative); PH, Urine 5.5 (5.0-8.0); Protein,Urine Negative (Negative); Specific Gravity,Urine 1.043 (1.001-1.035); Urobilinogen,Urine <2.0 mg/dL (<2.0)
--- NOTE | 2020-03-17 09:50 | CT ---
EXAMINATION TYPE: CT abdomen pelvis w con DATE OF EXAM: 03/17/2020 COMPARISON: None HISTORY: Abd pain CT DLP: 1139.1 mGycm Automated exposure control for dose reduction was used. TECHNIQUE: Helical acquisition of images from the lung bases through the pelvis have been completed. CONTRAST: Performed without Oral Contrast and with IV Contrast, patient injected with 100 mL of Isovue 300. FINDINGS: Umbilical hernia contains fat. LUNG BASES: Some dependent atelectatic changes are present. AORTA: No significant abnormality is appreciated. LIVER/GB: Liver shows low attenuation likely due to hepatic steatosis and liver is enlarged. Patient is post cholecystectomy.. PANCREAS: No significant abnormality is seen. SPLEEN: No significant abnormality is seen. ADRENALS: No significant abnormality is seen. KIDNEYS: No significant abnormality is seen. REPRODUCTIVE ORGANS: Prostate is enlarged. There is associated calcification. BOWEL: There is abnormal thickening of the colon at the level of the hepatic flexure and portions of the transverse colon and ascending colon. Within the surrounding fat there is increased attenuation present. Right glass density present in the pericolonic fat at this level. FREE AIR: No Free Air visible. ASCITES: None visible. PELVIC ADENOPATHY: None visualized. RETROPERITONEAL ADENOPATHY: No Retroperitoneal Adenopathy visible. URINARY BLADDER: No significant abnormality is seen. OSSEOUS STRUCTURES: There are degenerative disc changes especially L5-S1. At the right sacroiliac musa int inferior margin some gas lucencies suggests focal area of vacuum phenomenon. IMPRESSION: FINDINGS MAY REPRESENT COLITIS OR DIVERTICULAR ABSCESS. FOLLOW-UP IS RECOMMENDED TO EXCLUDE AN UNDERL SHUN MASS. HEPATOMEGALY WITH HEPATIC STEATOSIS.
[2020-03-17] MEDS ORDERED: cefTRIAXone IN SWFI 1,000 MG/10 ML SYRINGE IVP STA (10:11)
[2020-03-17] MEDS ORDERED: metroNIDAZOLE-NS PMX 500 MG in SALINE 1 100ML.BAG IVPB STA (10:11)
[2020-03-17] MEDS ORDERED: MORPHINE SULFATE 4 MG/ML SYRINGE IV PRN (10:14)
[2020-03-17] MEDS ORDERED: NALOXONE 0.4 MG/ML 1 ML VIAL IV PRN (10:14)
[2020-03-17] MEDS ORDERED: ONDANSETRON 4 MG/2 ML VIAL IVP PRN (10:14)
--- NOTE | 2020-03-17 10:39 | P.GSHP ---
History of Present Illness H&P Date: 03/17/20 Chief Complaint: Right-sided abdominal pain This a 54-year-old male who presents today for abdominal pain. Patient states he has a three-day history of right-sided abdominal pain. The pain worsened last night he came the emergency room. His CAT scan shows evidence of possible diverticular abscess at the level of the proximal hepatic flexure area there is inflammation of the ascending and transverse colon at the hepatic flexure. There is questionable diverticular abscess. Patient states his pain is a 210 round resting in bed however when he is active the pain is a 8 out of 10 Past Medical History Past Medical History: No Reported History History of Any Multi-Drug Resistant Organisms: None Reported Past Surgical History: Cholecystectomy Additional Past Surgical History / Comment(s): vasectomy Past Anesthesia/Blood Transfusion Reactions: No Reported Reaction Past Psychological History: No Psychological Hx Reported Smoking Status: Former smoker Past Alcohol Use History: Occasional Past Drug Use History: None Reported - Past Family History Father Additional Family Medical History / Comment(s): heart issues with blood vessels. Mother Family Medical History: No Reported History Medications and Allergies Home Medications Medication Instructions Recorded Confirmed Type No Known Home Medications 03/17/20 03/17/20 History Allergies Allergy/AdvReac Type Severity Reaction Status Date / Time Penicillins Allergy Swelling Verified 03/17/20 10:04 Surgical - Exam Vital Signs Temp Pulse Resp BP Pulse Ox 98.3 F 89 18 149/107 98 03/17/20 07:55 03/17/20 07:55 03/17/20 07:55 03/17/20 07:55 03/17/20 07:55 - General well developed, well nourished, no distress - Eyes PERRL - ENT normal pinna - Neck no masses - Respiratory normal expansion - Cardiovascular Rhythm: regular - Abdomen Marked tenderness on the right abdomen Abdomen: soft Results - Labs 03/17/20 08:20 03/17/20 08:20 Abnormal Lab Results - Last 24 Hours (Table) 03/17/20 03/17/20 Range/Units 08:20 09:23 Glucose 119 H (74-99) mg/dL Ur Specific [place] 1.043 H (1.001-1.035) Diabetes panel 03/17/20 Range/Units 08:20 Sodium 137 (137-145) mmol/L Potassium 4.0 (3.5-5.1) mmol/L Chloride 107 (98-107) mmol/L Carbon Dioxide 22 (22-30) mmol/L BUN 14 (9-20) mg/dL Creatinine 0.88 (0.66-1.25) mg/dL Glucose 119 H (74-99) mg/dL Calcium 9.3 (8.4-10.2) mg/dL AST 19 (17-59) U/L ALT 23 (4-49) U/L Alkaline Phosphatase 63 (38-126) U/L Total Protein 7.4 (6.3-8.2) g/dL Albumin 4.3 (3.5-5.0) g/dL Calcium panel 03/17/20 Range/Units 08:20 Calcium 9.3 (8.4-10.2) mg/dL Albumin 4.3 (3.5-5.0) g/dL Pituitary panel 03/17/20 Range/Units 08:20 Sodium 137 (137-145) mmol/L Potassium 4.0 (3.5-5.1) mmol/L Chloride 107 (98-107) mmol/L Carbon Dioxide 22 (22-30) mmol/L BUN 14 (9-20) mg/dL Creatinine 0.88 (0.66-1.25) mg/dL Glucose 119 H (74-99) mg/dL Calcium 9.3 (8.4-10.2) mg/dL Adrenal panel 03/17/20 Range/Units 08:20 Sodium 137 (137-145) mmol/L Potassium 4.0 (3.5-5.1) mmol/L Chloride 107 (98-107) mmol/L Carbon Dioxide 22 (22-30) mmol/L BUN 14 (9-20) mg/dL Creatinine 0.88 (0.66-1.25) mg/dL Glucose 119 H (74-99) mg/dL Calcium 9.3 (8.4-10.2) mg/dL Total Bilirubin 0.5 (0.2-1.3) mg/dL AST 19 (17-59) U/L ALT 23 (4-49) U/L Alkaline Phosphatase 63 (38-126) U/L Total Protein 7.4 (6.3-8.2) g/dL Albumin 4.3 (3.5-5.0) g/dL Assessment and Plan Assessment: Right-sided abdominal pain. Possible diverticular abscess of the hepatic flexure. Patient will continue clear liquid diet and IV antibiotic.
[2020-03-17] MEDS: SODIUM CHLORIDE 0.9% 1,000 ML IV SCH (11:41)
--- NOTE | 2020-03-17 15:05 | P.CONS ---
History of Present Illness - Reason for Consult Diverticular abscess - History of Present Illness Patient is a pleasant 54-year-old male came in with complaints of severe right lower quadrant abdominal pain which is crampy in sensation progressively has been going on for a few days denied any constipation denied any nausea vomiting. Patient is found to have a diverticular abscess. Patient was evaluated and admitted to general surgery then not recommending any surgical intervention patient was started on Rocephin and metronidazole which was later switched to cefepime by infectious disease. Patient denied any fever chills. Patient denied any dysuria doesn't have any major medical problems. Review of Systems REVIEW OF SYSTEMS: CONSTITUTIONAL: No fever, no malaise, no fatigue. HEENT: No recent visual problems or hearing problems. Denied any sore throat. CARDIOVASCULAR: No chest pain, orthopnea, PND, no palpitations, no syncope. PULMONARY: No shortness of breath, no cough, no hemoptysis. GASTROINTESTINAL: As mentioned in HPI NEUROLOGICAL: No headaches, no weakness, no numbness. HEMATOLOGICAL: Denies any bleeding or petechiae. GENITOURINARY: Denies any burning micturition, frequency, or urgency. MUSCULOSKELETAL/RHEUMATOLOGICAL: Denies any joint pain, swelling, or any muscle pain. ENDOCRINE: Denies any polyuria or polydipsia. The rest of the 14-point review of systems is negative. Past Medical History Past Medical History: No Reported History History of Any Multi-Drug Resistant Organisms: None Reported Past Surgical History: Cholecystectomy Additional Past Surgical History / Comment(s): vasectomy Past Anesthesia/Blood Transfusion Reactions: No Reported Reaction Past Psychological History: No Psychological Hx Reported Smoking Status: Former smoker Past Alcohol Use History: Occasional Past Drug Use History: None Reported - Past Family History Father Additional Family Medical History / Comment(s): heart issues with blood vessels. Mother Family Medical History: No Reported History Additional Family Medical History / Comment(s): colitis Medications and Allergies Home Medications Medication Instructions Recorded Confirmed Type No Known Home Medications 03/17/20 03/17/20 History Allergies Allergy/AdvReac Type Severity Reaction Status Date / Time Penicillins Allergy Swelling Verified 03/17/20 10:04 Physical Exam Vitals: Vital Signs Temp Pulse Pulse Resp BP BP Pulse Ox 03/17/20 11:37 98.0 F 69 18 150/92 95 03/17/20 10:32 77 20 143/99 97 05/23/20 10:31 77 20 143/99 03/17/20 09:00 74 20 146/100 97 03/17/20 08:57 74 20 146/100 97 03/17/20 07:57 20 03/17/20 07:55 98.3 F 89 18 149/107 98 Intake and Output 03/17/20 03/17/20 03/17/20 06:59 14:59 22:59 Other: Weight 95.254 kg PHYSICAL EXAMINATION: GENERAL: The patient is alert and oriented x3, not in any acute distress. Well developed, well nourished. HEENT: Pupils are round and equally reacting to light. EOMI. No scleral icterus. No conjunctival pallor. Normocephalic, atraumatic. No pharyngeal erythema. No thyromegaly. CARDIOVASCULAR: S1 and S2 present. No murmurs, rubs, or gallops. PULMONARY: Chest is clear to auscultation, no wheezing or crackles. ABDOMEN: Tenderness with the mild distention the right lower quadrant normoactive bowel sounds. No palpable organomegaly. MUSCULOSKELETAL: No joint swelling or deformity. EXTREMITIES: No cyanosis, clubbing, or pedal edema. NEUROLOGICAL: Gross neurological examination did not reveal any focal deficits. SKIN: No rashes. Results CBC & Chem 7: 03/17/20 08:20 03/17/20 08:20 Labs: Abnormal Lab Results - Last 24 Hours (Table) 03/17/20 03/17/20 Range/Units 08:20 09:23 Glucose 119 H (74-99) mg/dL Ur Specific [place] 1.043 H (1.001-1.035) Assessment and Plan Plan: -Diverticular abscess: Was a valid by general surgery the recommending IV antibiotics patient is presently in cefepime and metronidazole which will be continued. Patient will be continued on IV fluids -History of nicotine abuse he quit smoking Patient is on appropriate antibiotics we'll continue to follow on as-needed basis
[2020-03-17] MEDS ORDERED: ACETAMINOPHEN TAB 325 MG TAB PO PRN (17:11)
[2020-03-17] MEDS: metroNIDAZOLE-NS PMX 500 MG in SALINE 1 100ML.BAG IVPB SCH (20:07)
[2020-03-17] MEDS: HYDROcodone/APAP 5-325MG 1 EACH TAB PO PRN (21:43)
[2020-03-17] MEDS: CEFEPIME 2 GM in SODIUM CHLORIDE 0.9% 100 ML IVPB SCH (21:43)
--- NOTE | 2020-03-18 01:31 | P.CONS ---
History of Present Illness - Reason for Consult Consult date: 03/17/20 abd abscess Requesting physician: Bacilio Oglesby - Chief Complaint abd pain x 3 days - History of Present Illness Patient is a 54-year-old male presenting to the ER at [facility] with chief complaints of right lower quadrant abdominal pain patient has been going on for 3 days before presentation the hospital patient describes the pain to be more of a cramping and worse with any movement intensity can be as high as a 10 out of 10 in severity. Have some nausea but no vomiting and denies having any diarrhea with worsening of the symptom patient did present to the hospital on arrival to the ER the patient was afebrile he did have a normal white count UA was negative patient did have a CT of abdominal pelvis there was reported to be colitis or diverticular abscess patient received a dose of Rocephin and Flagyl in the ER subsequently patient has been admitted to hospital infectious disease was consulted for further management of antibiot ic therapy. Review of Systems Positive point has been mentioned in HPI rest of the systems are negative Past Medical History Past Medical History: No Reported History History of Any Multi-Drug Resistant Organisms: None Reported Past Surgical History: Cholecystectomy Additional Past Surgical History / Comment(s): vasectomy Past Anesthesia/Blood Transfusion Reactions: No Reported Reaction Past Psychological History: No Psychological Hx Reported Smoking Status: Former smoker Past Alcohol Use History: Occasional Past Drug Use History: None Reported - Past Family History Father Additional Family Medical History / Comment(s): heart issues with blood vessels. Mother Family Medical History: No Reported History Additional Family Medical History / Comment(s): colitis Medications and Allergies Home Medications Medication Instructions Recorded Confirmed Type No Known Home Medications 03/17/20 03/17/20 History Allergies Allergy/AdvReac Type Severity Reaction Status Date / Time Penicillins Allergy Swelling Verified 03/17/20 10:04 Physical Exam Vitals: Vital Signs Temp Pulse Pulse Resp BP BP Pulse Ox 03/17/20 11:37 98.0 F 69 18 150/92 95 03/17/20 10:32 77 20 143/99 97 03/17/20 10:31 77 20 143/99 03/17/20 09:00 74 20 146/100 97 03/17/20 08:57 74 20 146/100 97 03/17/20 07:57 20 05/23/20 07:55 98.3 F 89 18 149/107 98 Intake and Output 03/16/20 03/17/20 03/17/20 22:59 06:59 14:59 Other: Weight 95.254 kg GENERAL DESCRIPTION: Middle-aged male lying in bed, no distress. No tachypnea or accessory muscle of respiration use. HEENT: Shows Pallor , no scleral icterus. Oral mucous membrane is dry. NECK: Trachea central, no thyromegaly. LUNGS: Unlabored breathing. Clear to auscultation anteriorly. No wheeze or crackle. HEART: S1, S2, regular rate and rhythm. ABDOMEN: Soft, right lower quadrant tenderness , no guarding or rigidity EXTREMITIES: No edema of feet. SKIN: No rash, no masses palpable. NEUROLOGICAL: The patient is awake, alert, oriented x3, mood and affect normal. Results CBC & Chem 7: 03/17/20 08:20 03/17/20 08:20 Labs: Abnormal Lab Results - Last 24 Hours (Table) 03/17/20 03/17/20 Range/Units 08:20 09:23 Glucose 119 H (74-99) mg/dL Ur Specific Bud 1.043 H (1.001-1.035) Assessment and Plan Assessment: 1-patient presenting to the hospital with abdominal pain in this patient who is status post CT abdominal pelvis suggestive of a diverticular abscess in this patient who has not been on antibiotic in the recent past could be sensitive pathogen such as E. coli and bacteroids 2-patient with a penicillin allergy that would limit the number of antibiotics safe to use (1) Intestinal diverticular abscess Current Visit: Yes Status: Acute Code(s): K63.0 - ABSCESS OF INTESTINE SNOMED Code(s): 8632594049468 Plan: 1-we will start the patient on cefepime 2 g every 12hr and Flagyl 500 mg IV every 8 hour 2-gentle IV fluid we will follow on clinical condition and cultures to further adjust medication if needed Thank you for this consultation we will follow the patient along with you Time with Patient: Greater than 30
[2020-03-18] MEDS: SODIUM CHLORIDE 0.9% 1,000 ML IV SCH ×2 (04:27→12:35)
[2020-03-18] MEDS: metroNIDAZOLE-NS PMX 500 MG in SALINE 1 100ML.BAG IVPB SCH ×3 (04:27→20:49)
[2020-03-18] MEDS: HYDROcodone/APAP 5-325MG 1 EACH TAB PO PRN ×3 (04:33→22:53)
[2020-03-18] MEDS: CEFEPIME 2 GM in SODIUM CHLORIDE 0.9% 100 ML IVPB SCH ×2 (07:24→21:55)
[2020-03-18 07:34] LABS: Basophils % (A) 0 %; Eosinophils # (A) 0.2 k/uL (0-0.7); Eosinophils % (A) 2 %; HCT 43.8 % (39.0-53.0); HGB 14.2 gm/dL (13.0-17.5); Lymphocytes # (A) 1.8 k/uL (1.0-4.8); Lymphocytes % (A) 20 %; MCH 28.9 pg (25.0-35.0); MCHC 32.5 g/dL (31.0-37.0); Mean Platelet Volume 7.1; Monocytes # (A) 0.5 k/uL (0-1.0); Monocytes % (A) 6 %; Neutrophils # (A) 6.5 k/uL (1.3-7.7); Neutrophils % (A) 71 %; Platelet Count 239 k/uL (150-450); RBC 4.92 m/uL (4.30-5.90); RDW 12.8 % (11.5-15.5); WBC 9.2 k/uL (3.8-10.6)
[2020-03-18 07:49] LABS: African American GFR (CKD) >90 (>60 ml/min/1.73 sqM); Anion Gap 5 mmol/L; Blood Urea Nitrogen 11 mg/dL (9-20); Calcium 8.5 mg/dL (8.4-10.2); Carbon Dioxide 27 mmol/L (22-30); Chloride 105 mmol/L (98-107); Glucose 102 mg/dL (74-99); Non-African American GFR(CKD) >90 (>60 ml/min/1.73 sqM); Sodium 137 mmol/L (137-145)
--- NOTE | 2020-03-18 10:39 | P.PN ---
Progress Note - Text Progress Note Date: 03/18/20 The patient still has complaints of right quadrant pain. He states his pain is a 3-5 out of 10. He does feel better than yesterday. On exam his vital signs are stable. Abdomen soft. There is some mild epigastric and right upper quadrant pain. History of colitis/possible diverticular abscess of hepatic flexure. Patient will continue receive IV antibiotic. Remain on clear liquids.
--- NOTE | 2020-03-18 11:54 | P.PN ---
Subjective 54-year-old male came in with complaints of severe right lower quadrant abdominal pain which is crampy in sensation progressively has been going on for a few days denied any constipation denied any nausea vomiting. Patient is found to have a diverticular abscess. Patient was evaluated and admitted to general surgery then not recommending any surgical intervention patient was started on Rocephin and metronidazole which was later switched to cefepime by infectious disease. Patient denied any fever chills. Patient denied any dysuria doesn't have any major medical problems. 03/18/2020 His abdominal pain is better but still has some tenderness in the right lower quadrant patient looks better overall clinically. Constitutional: Denied any fatigue denied any fever. Cardio vascular: denied any chest pain, palpitations Gastrointestinal denied any nausea vomiting Pulmonary: Denied any shortness of breath cough Neurologic denied any new focal deficits All inpatient medications were reviewed and appropriate changes in these medications as dictated in the interval history and assessment and plan. Objective - Vital Signs Vital signs: Vital Signs Temp 98.3 F 03/18/20 07:10 Pulse 67 03/18/20 07:10 Resp 16 03/18/20 07:10 BP 134/85 03/18/20 07:10 Pulse Ox 94 L 03/18/20 07:10 Intake & Output 03/17/20 03/18/20 03/18/20 18:59 06:59 18:59 Weight 95.254 kg Other: # Voids 1 3 - Exam PHYSICAL EXAMINATION: GENERAL: The patient is alert and oriented x3, not in any acute distress. Well developed, well nourished. HEENT: Pupils are round and equally reacting to light. EOMI. No scleral icterus. No conjunctival pallor. Normocephalic, atraumatic. No pharyngeal erythema. No thyromegaly. CARDIOVASCULAR: S1 and S2 present. No murmurs, rubs, or gallops. PULMONARY: Chest is clear to auscultation, no wheezing or crackles. ABDOMEN:Clarence distended with mild tenderness in the right lower quadrant n ormoactive bowel sounds. No palpable organomegaly. MUSCULOSKELETAL: No joint swelling or deformity. EXTREMITIES: No cyanosis, clubbing, or pedal edema. NEUROLOGICAL: Gross neurological examination did not reveal any focal deficits. SKIN: No rashes. - Labs CBC & Chem 7: 03/18/20 07:23 03/18/20 07:23 Labs: Abnormal Lab Results - Last 24 Hours (Table) 03/18/20 Range/Units 07:23 Glucose 102 H (74-99) mg/dL Assessment and Plan Plan: -Diverticular abscess: Was a valid by general surgery the recommending IV antibiotics patient is presently in cefepime and metronidazole which will be continued. Patient will be continued on IV fluids -History of nicotine abuse he quit smoking Patient is on appropriate antibiotics we'll continue to follow on as-needed basis
--- NOTE | 2020-03-18 22:35 | PN ---
PROGRESS NOTE DATE OF SERVICE: 03/18/2020 REASON FOR FOLLOWUP: Abdominal abscess. INTERVAL HISTORY: The patient is currently afebrile. He is breathing comfortably. He is still having abdominal pain, the same as yesterday, not significant change. Some nausea but no vomiting. No chest pain, shortness of breath or cough. PHYSICAL EXAMINATION: Blood pressure 159/77 with a pulse of 80, temperature 98.4. He is 94% on room. General air description is a middle-aged male lying in bed in no distress. Respiratory system: Unlabored breathing, clear to auscultation anteriorly. Heart S1, S2. Regular rate and rhythm. Abdomen soft, tender on the right side. No guarding or rigidity. Extremities, no edema of the feet. LABS: Hemoglobin is 14.1, white count of 9.2 with BUN of 11, creatinine 0.85. DIAGNOSTIC IMPRESSION AND PLAN: Patient admitted to the hospital with abdominal abscess with concern for possible diverticular abscess, on cefepime and Flagyl because of his allergy. Surgeon wants to continue with IV antibiotic and monitor clinical course closely. Continue supportive care. MMODL / IJN: [id number] /
[2020-03-19] MEDS: metroNIDAZOLE-NS PMX 500 MG in SALINE 1 100ML.BAG IVPB SCH ×3 (04:22→21:00)
[2020-03-19] MEDS: SODIUM CHLORIDE 0.9% 1,000 ML IV SCH (04:23)
[2020-03-19] MEDS: CEFEPIME 2 GM in SODIUM CHLORIDE 0.9% 100 ML IVPB SCH ×2 (08:25→21:00)
--- NOTE | 2020-03-19 11:26 | P.PN ---
Progress Note - Text Progress Note Date: 03/19/20 The patient feels better today. He still has pain in the right upper quadrant however the pain has improved. He is having bowel movements and passing gas. On exam his vital signs are stable. His abdomen soft. Patient will have his diet advanced fully liquid diet. We dysphagia discharged home the next 24-48 hours. We will plan for outpatient colonoscopy at that time.
--- NOTE | 2020-03-19 14:26 | P.PN ---
Subjective 54-year-old male came in with complaints of severe right lower quadrant abdominal pain which is crampy in sensation progressively has been going on for a few days denied any constipation denied any nausea vomiting. Patient is found to have a diverticular abscess. Patient was evaluated and admitted to general surgery then not recommending any surgical intervention patient was started on Rocephin and metronidazole which was later switched to cefepime by infectious disease. Patient denied any fever chills. Patient denied any dysuria doesn't have any major medical problems. 03/18/2020 His abdominal pain is better but still has some tenderness in the right lower quadrant patient looks better overall clinically. 03/19/2020 Patient's abdominal pain continued to improve1 patient probably will be discharged tomorrow Constitutional: Denied any fatigue denied any fever. Cardio vascular: denied any chest pain, palpitations Gastrointestinal denied any nausea vomiting Pulmonary: Denied any shortness of breath cough Neurologic denied any new focal deficits All inpatient medications were reviewed and appropriate changes in these medications as dictated in the interval history and assessment and plan. Objective - Vital Signs Vital signs: Vital Signs Temp 97.8 F 03/19/20 07:44 Pulse 68 03/19/20 07:44 Resp 16 03/19/20 07:44 BP 150/99 03/19/20 07:44 Pulse Ox 93 L 03/19/20 07:44 Intake & Output 03/18/20 03/19/20 03/19/20 18:59 06:59 18:59 Intake Total 725 Balance 725 Intake: Intake, IV Titration 725 Amount Cefepime 2 gm In Sodium 100 Chloride 0.9% 100 ml @ 200 mls/hr IVPB Q12HR [facility] Rx#:[id number] Sodium Chloride 0.9% 1, 525 000 ml @ 75 mls/hr IV . [id number] [facility] Rx#:[id number] metroNIDAZOLE-NS PMX 500 100 mg In Saline 1 100ml.bag @ 100 mls/hr IVPB Q8H [facility] Rx#:[id number] Other: # Voids 3 2 - Exam PHYSICAL EXAMINATION: GENERAL: The patient is alert and oriented x3, not in any acute distress. Well developed, well nourished. HEENT: Pupils are round and equally reacting to light. EOMI. No scleral icterus. No conjunctival pallor. Normocephalic, atraumatic. No pharyngeal erythema. No thyromegaly. CARDIOVASCULAR: S1 and S2 present. No murmurs, rubs, or gallops. PULMONARY: Chest is clear to auscultation, no wheezing or crackles. ABDOMEN:Clarence distended with mild tenderness in the right lower quadrant normoactive bowel sounds. No palpable organomegaly. MUSCULOSKELETAL: No joint swelling or deformity. EXTREMITIES: No cyanosis, clubbing, or pedal edema. NEUROLOGICAL: Gross neurological examination did not reveal any focal deficits. SKIN: No rashes. - Labs CBC & Chem 7: 03/18/20 07:23 03/18/20 07:23 Labs: Microbiology - Last 24 Hours (Table) 03/17/20 10:41 Blood Culture - Preliminary Blood No Growth after 48 hours Assessment and Plan Plan: -Diverticular abscess: Was a valid by general surgery the recommending IV antibiotics patient is presently in cefepime and metronidazole which will be continued. IV fluids will be discontinued patient has remained independent probably will be discharged tomorrow -History of nicotine abuse he quit smoking Patient is on appropriate antibiotics we'll continue to follow on as-needed basis
--- NOTE | 2020-03-19 18:12 | PN ---
PROGRESS NOTE DATE OF SERVICE: 03/19/2020 REASON FOR FOLLOWUP: Abdominal abscess, possible perforated diverticulitis. INTERVAL HISTORY: The patient is currently afebrile. The patient's abdominal pain is currently improved. The patient started on clear liquid diet which he has been tolerating. No chest pain, shortness of breath or cough. PHYSICAL EXAMINATION: Blood pressure 154/90 with a pulse of 67, temperature is 98.2. He is 95% on room air. General description is a middle-aged male lying in bed in no distress. Respiratory system: Unlabored breathing. Clear to auscultation anteriorly. HEART S1, S2. Regular rate and rhythm. ABDOMEN: Soft, mildly tender. EXTREMITIES: No edema of the feet. LABS: Hemoglobin 14.1, white count 9.2 with a BUN of 11, creatinine 0.85. Blood culture negative. DIAGNOSTIC IMPRESSION AND PLAN: Patient with abdominal abscess, likely from a ruptured diverticulitis. Overall improved with cefepime and Flagyl. We will try to arrange for outpatient IV antibiotic on discharge as surgery is currently being delayed until his infection is resolved. Continue supportive care. MMODL / IJN: [id number] /
[2020-03-19] MEDS: HYDROcodone/APAP 5-325MG 1 EACH TAB PO PRN (20:59)
[2020-03-20] MEDS: metroNIDAZOLE-NS PMX 500 MG in SALINE 1 100ML.BAG IVPB SCH ×3 (05:44→21:20)
[2020-03-20] MEDS: CEFEPIME 2 GM in SODIUM CHLORIDE 0.9% 100 ML IVPB SCH ×2 (08:36→21:19)
--- NOTE | 2020-03-20 12:58 | P.PN ---
Subjective Progress Note Date: 03/20/20 CHIEF COMPLAINT: Abdominal pain HISTORY OF PRESENT ILLNESS: Patient examined at the bedside with Dr. Oglesby. Patient continues to report some abdominal pain today. He reports a bowel movement yesterday. He is tolerating diet without nausea or vomiting. PHYSICAL EXAM: VITAL SIGNS: Reviewed. GENERAL: Well-developed in no acute distress. HEENT: No sclera icterus. Extraocular movements grossly intact. Moist buccal mucosa. Head is atraumatic, normocephalic. ABDOMEN: Soft. Nondistended. Mild tenderness with palpation NEUROLOGIC: Alert and oriented. Cranial nerves II through XII grossly intact. ASSESSMENT: 1. Right-sided abdominal pain 2. Possible diverticular abscess of hepatic flexure PLAN: -Continue full liquid diet -Continue antibiotics -Hold discharge today secondary to continued abdominal pain. Possible discharge tomorrow -Patient will require outpatient colonoscopy in the future Nurse practitioner note has been reviewed by physician. Signing provider agrees with the documented findings, assessment, and plan of care. Objective - Vital Signs Vital signs: Vital Signs Temp 98.0 F 03/20/20 06:58 Pulse 76 03/20/20 06:58 Resp 16 03/20/20 06:58 BP 158/83 03/20/20 06:58 Pulse Ox 96 03/20/20 06:58 Intake & Output 03/19/20 03/20/20 03/20/20 18:59 06:59 18:59 Intake Total 1265 Balance 1265 Intake: Intake, IV Titration 725 Amount Cefepime 2 gm In Sodium 100 Chloride 0.9% 100 ml @ 200 mls/hr IVPB Q12HR [facility] Rx#:[id number] Sodium Chloride 0.9% 1, 525 000 ml @ 75 mls/hr IV . [id number] [facility] Rx#:[id number] metroNIDAZOLE-NS PMX 500 100 mg In Saline 1 100ml.bag @ 100 mls/hr IVPB Q8H [facility] Rx#:[id number] Oral 540 Other: # Voids 3 1 1 - Labs CBC & Chem 7: 03/18/20 07:23 03/18/20 07:23 Labs: Microbiology - Last 24 Hours (Table) 03/17/20 10:41 Blood Culture - Preliminary Blood No Growth after 72 hours
--- NOTE | 2020-03-20 13:31 | P.PN ---
Subjective 54-year-old male came in with complaints of severe right lower quadrant abdominal pain which is crampy in sensation progressively has been going on for a few days denied any constipation denied any nausea vomiting. Patient is found to have a diverticular abscess. Patient was evaluated and admitted to general surgery then not recommending any surgical intervention patient was started on Rocephin and metronidazole which was later switched to cefepime by infectious disease. Patient denied any fever chills. Patient denied any dysuria doesn't have any major medical problems. 03/18/2020 His abdominal pain is better but still has some tenderness in the right lower quadrant patient looks better overall clinically. 03/19/2020 Patient's abdominal pain continued to improve1 patient probably will be discharged tomorrow 03/20/2020 Patient remains on the same antibiotics abdominal pain fairly remain stable and almost similar yesterday Constitutional: Denied any fatigue denied any fever. Cardio vascular: denied any chest pain, palpitations Gastrointestinal denied any nausea vomiting Pulmonary: Denied any shortness of breath cough Neurologic denied any new focal deficits All inpatient medications were reviewed and appropriate changes in these medications as dictated in the interval history and assessment and plan. Objective - Vital Signs Vital signs: Vital Signs Temp 98.0 F 03/20/20 06:58 Pulse 76 03/20/20 06:58 Resp 16 03/20/20 06:58 BP 158/83 03/20/20 06:58 Pulse Ox 96 03/20/20 06:58 Intake & Output 03/19/20 03/20/20 03/20/20 18:59 06:59 18:59 Intake Total 1265 Balance 1265 Intake: Intake, IV Titration 725 Amount Cefepime 2 gm In Sodium 100 Chloride 0.9% 100 ml @ 200 mls/hr IVPB Q12HR [facility] Rx#:[id number] Sodium Chloride 0.9% 1, 525 000 ml @ 75 mls/hr IV . [id number] [facility] Rx#:[id number] metroNIDAZOLE-NS PMX 500 100 mg In Saline 1 100ml.bag @ 100 mls/hr IVPB Q8H [facility] Rx#:[id number] Oral 540 Other: # Voids 3 1 1 - Exam PHYSICAL EXAMINATION: GENERAL: The patient is alert and oriented x3, not in any acute distress. Well developed, well nourished. HEENT: Pupils are round and equally reacting to light. EOMI. No scleral icterus. No conjunctival pallor. Normocephalic, atraumatic. No pharyngeal erythema. No thyromegaly. CARDIOVASCULAR: S1 and S2 present. No murmurs, rubs, or gallops. PULMONARY: Chest is clear to auscultation, no wheezing or crackles. ABDOMEN:Clarence distended with mild tenderness in the right lower quadrant normoactive bowel sounds. No palpable organomegaly. MUSCULOSKELETAL: No joint swelling or deformity. EXTREMITIES: No cyanosis, clubbing, or pedal edema. NEUROLOGICAL: Gross neurological examination did not reveal any focal deficits. SKIN: No rashes. - Labs CBC & Chem 7: 03/18/20 07:23 03/18/20 07:23 Labs: Microbiology - Last 24 Hours (Table) 03/17/20 10:41 Blood Culture - Preliminary Blood No Growth after 72 hours Assessment and Plan Plan: -Diverticular abscess: Was a valid by general surgery the recommending IV antibiotics patient is presently in cefepime and metronidazole which will be continued. IV fluids will be discontinued patient has remained independent probably will be discharged tomorrow -History of nicotine abuse he quit smoking Patient is on appropriate antibiotics we'll continue to follow on as-needed basis
--- NOTE | 2020-03-20 16:34 | PN ---
PROGRESS NOTE DATE OF SERVICE: 03/20/2020 REASON FOR FOLLOWUP: Abdominal abscess from perforated diverticulitis. INTERVAL HISTORY: The patient is currently afebrile. The patient is breathing comfortably. Patient denies having any chest pain. No shortness of breath or cough. Abdominal pain is currently controlled. No nausea, no vomiting. No diarrhea. PHYSICAL EXAMINATION: Blood pressure 152/83 with a pulse of 73, temperature 98, he is 96% on room air. General description is a middle-aged male, up in the bed in no distress. RESPIRATORY SYSTEM: Unlabored breathing, clear to auscultation anteriorly. HEART: S1, S2. Regular rate and rhythm. ABDOMEN: Soft, minimal tenderness. LABS: Hemoglobin is 14.8, white count of 9.2, BUN of 11, creatinine 0.85. Blood cultures have been negative. DIAGNOSTIC IMPRESSION AND PLAN: Patient with abdominal abscess from a perforated diverticulitis, is recommending medical treatment before any surgical intervention. Will get a midline and recommends Rocephin 2 grams daily along with oral Flagyl for 2 weeks and close outpatient followup. MMODL / IJN: [id number] /
[2020-03-21] MEDS: metroNIDAZOLE-NS PMX 500 MG in SALINE 1 100ML.BAG IVPB SCH (05:42)
[2020-03-21 07:56] VITALS: RESP 17
[2020-03-21] MEDS: CEFEPIME 2 GM in SODIUM CHLORIDE 0.9% 100 ML IVPB SCH (08:51)
--- NOTE | 2020-03-21 10:08 | P.PN ---
<Sommer Neves - Last Filed: 03/21/20 10:04> Subjective Progress Note Date: 03/21/20 CHIEF COMPLAINT: Abdominal pain HISTORY OF PRESENT ILLNESS: Patient examined at the bedside. Patient reports minimal right sided abdominal pain. Tolerating diet. No nausea or vomiting. Passing flatus. PHYSICAL EXAM: VITAL SIGNS: Reviewed. GENERAL: Well-developed in no acute distress. HEENT: No sclera icterus. Extraocular movements grossly intact. Moist buccal mucosa. Head is atraumatic, normocephalic. ABDOMEN: Soft. Nondistended. Nontender. NEUROLOGIC: Alert and oriented. Cranial nerves II through XII grossly intact. ASSESSMENT: 1. Right-sided abdominal pain 2. Possible diverticular abscess of hepatic flexure PLAN: -Continue full liquid diet -Patient will require outpatient colonoscopy in the future -Dr. Elise recommending midline IV placement with Rocephin for 2 weeks and oral Flagyl. Patient states Dr. Oglesby told him he would not require IV antibiotics at discharge and would be discharged home on oral antibiotics only so patient refused midline IV catheter yesterday. -Will discuss antibiotics with Dr. Oglesby today and plan for discharge home this afternoon. Nurse practitioner note has been reviewed by physician. Signing provider agrees with the documented findings, assessment, and plan of care. Objective - Vital Signs Vital signs: Vital Signs Temp 97.2 F L 03/21/20 07:00 Pulse 72 03/21/20 07:00 Resp 17 03/21/20 07:00 BP 123/84 03/21/20 07:00 Pulse Ox 94 L 03/21/20 07:00 Intake & Output 03/20/20 03/21/20 03/21/20 18:59 06:59 18:59 Intake Total 890 Balance 890 Intake: Intake, IV Titration 350 Amount Cefepime 2 gm In Sodium 100 Chloride 0.9% 100 ml @ 200 mls/hr IVPB Q12HR [facility] Rx#:[id number] Sodium Chloride 0.9% 1, 150 000 ml @ 75 mls/hr IV . [id number] [facility] Rx#:[id number] metroNIDAZOLE-NS PMX 500 100 mg In Saline 1 100ml.bag @ 100 mls/hr IVPB Q8H [facility] Rx#:[id number] Oral 540 Other: Voiding Method Toilet # Voids 2 1 - Labs CBC & Chem 7: 03/18/20 07:23 03/18/20 07:23 Labs: Microbiology - Last 24 Hours (Table) 03/17/20 10:41 Blood Culture - Preliminary Blood No Growth after 72 hours <Bacilio Oglesby - Last Filed: 03/21/20 16:34> Objective - Vital Signs Vital signs: Vital Signs Temp 98.2 F 03/21/20 15:00 Pulse 74 03/21/20 15:00 Resp 17 03/21/20 15:00 BP 158/85 03/21/20 15:00 Pulse Ox 95 03/21/20 15:00 Intake & Output 03/20/20 03/21/20 03/21/20 18:59 06:59 18:59 Intake Total 890 200 Balance 890 200 Intake: Intake, IV Titration 350 200 Amount Cefepime 2 gm In Sodium 100 100 Chloride 0.9% 100 ml @ 200 mls/hr IVPB Q12HR [facility] Rx#:[id number] Sodium Chloride 0.9% 1, 150 000 ml @ 75 mls/hr IV . [id number] [facility] Rx#:[id number] metroNIDAZOLE-NS PMX 500 100 100 mg In Saline 1 100ml.bag @ 100 mls/hr IVPB Q8H [facility] Rx#:[id number] Oral 540 Other: Voiding Method Toilet # Voids 2 1 1 # Bowel Movements 1 - Labs CBC & Chem 7: 03/18/20 07:23 03/18/20 07:23 Labs: Microbiology - Last 24 Hours (Table) 03/17/20 10:41 Blood Culture - Preliminary Blood No Growth after 96 hours
--- NOTE | 2020-03-21 12:53 | P.PN ---
Subjective 54-year-old male came in with complaints of severe right lower quadrant abdominal pain which is crampy in sensation progressively has been going on for a few days denied any constipation denied any nausea vomiting. Patient is found to have a diverticular abscess. Patient was evaluated and admitted to general surgery then not recommending any surgical intervention patient was started on Rocephin and metronidazole which was later switched to cefepime by infectious disease. Patient denied any fever chills. Patient denied any dysuria doesn't have any major medical problems. 03/18/2020 His abdominal pain is better but still has some tenderness in the right lower quadrant patient looks better overall clinically. 03/19/2020 Patient's abdominal pain continued to improve1 patient probably will be discharged tomorrow 03/20/2020 Patient remains on the same antibiotics abdominal pain fairly remain stable and almost similar yesterday 03/21/2020 It appears that the surgery and infectious disease are debating about IV versus oral antibiotics after that patient most probably will be discharged today patient feels better can be discharged from medical perspective Constitutional: Denied any fatigue denied any fever. Cardio vascular: denied any chest pain, palpitations Gastrointestinal denied any nausea vomiting Pulmonary: Denied any shortness of breath cough Neurologic denied any new focal deficits All inpatient medications were reviewed and appropriate changes in these medications as dictated in the interval history and assessment and plan. Objective - Vital Signs Vital signs: Vital Signs Temp 97.2 F L 03/21/20 07:00 Pulse 72 03/21/20 07:00 Resp 17 03/21/20 07:00 BP 123/84 03/21/20 07:00 Pulse Ox 94 L 03/21/20 07:00 Intake & Output 03/20/20 03/21/20 03/21/20 18:59 06:59 18:59 Intake Total 890 Balance 890 Intake: Intake, IV Titration 350 Amount Cefepime 2 gm In Sodium 100 Chloride 0.9% 100 ml @ 200 mls/hr IVPB Q12HR [facility] Rx#:[id number] Sodium Chloride 0.9% 1, 150 000 ml @ 75 mls/hr IV . [id number] [facility] Rx#:[id number] metroNIDAZOLE-NS PMX 500 100 mg In Saline 1 100ml.bag @ 100 mls/hr IVPB Q8H [facility] Rx#:[id number] Oral 540 Other: Voiding Method Toilet # Voids 2 1 - Exam PHYSICAL EXAMINATION: GENERAL: The patient is alert and oriented x3, not in any acute distress. Well developed, well nourished. HEENT: Pupils are round and equally reacting to light. EOMI. No scleral icterus. No conjunctival pallor. Normocephalic, atraumatic. No pharyngeal erythema. No t hyromegaly. CARDIOVASCULAR: S1 and S2 present. No murmurs, rubs, or gallops. PULMONARY: Chest is clear to auscultation, no wheezing or crackles. ABDOMEN: No tenderness soft abdomen normoactive bowel sounds. No palpable organomegaly. MUSCULOSKELETAL: No joint swelling or deformity. EXTREMITIES: No cyanosis, clubbing, or pedal edema. NEUROLOGICAL: Gross neurological examination did not reveal any focal deficits. SKIN: No rashes. - Labs CBC & Chem 7: 03/18/20 07:23 03/18/20 07:23 Labs: Microbiology - Last 24 Hours (Table) 03/17/20 10:41 Blood Culture - Preliminary Blood No Growth after 72 hours Assessment and Plan Plan: -Diverticular abscess: Was a valid by general surgery the recommending IV antibiotics patient is presently in cefepime and metronidazole which will be continued. Patient probably will be discharged today -History of nicotine abuse he quit smoking Patient is on appropriate antibiotics we'll continue to follow on as-needed basis
--- NOTE | 2020-03-21 15:02 | PN ---
PROGRESS NOTE DATE OF SERVICE: 03/21/2020 REASON FOR FOLLOWUP: Abdominal abscess from ruptured diverticulitis. INTERVAL HISTORY: The patient is currently afebrile. The patient is feeling much better, mentioning his almost 80% better. No chest pain. No shortness of breath or cough. Did have some dark stool but not any diarrhea. PHYSICAL EXAMINATION: Blood pressure 123/84 with a pulse of 72, temperature is 97.2, he is 94% on room air. General description is a middle-aged male, lying in bed in no distress. RESPIRATORY SYSTEM: Unlabored breathing, clear to auscultation anteriorly. HEART: S1, S2. Regular rate and rhythm. ABDOMEN: Soft, no tenderness. LABS: Hemoglobin is 14.8, white count of 9.2, creatinine 0.85. Blood culture has been negative. DIAGNOSTIC IMPRESSION AND PLAN: Patient with acute abdominal pain, likely from a ruptured diverticulitis. Patient has shown clinical improvement on IV antibiotic therapy. Discussed with the surgeon on the patient to be on IV and oral antibiotic on discharge with IV prescription for Cipro 500 mg twice a day, Flagyl 500 mg 3 times a day for 10 days has been recommended with close outpatient followup. MMODL / IJN: [id number] /
[2020-03-21 15:30] VITALS: BP 158/85; PULSE 74; TEMP 98.2
[2020-03-21] MEDS ORDERED: metroNIDAZOLE 500 MG TAB PO SCH (16:00)
== END 2020-03-21 18:11 | disposition home or self-care (01) | DRG 392 ==
LOC: EC 07:53 → 4SSUR 10:14
PROVIDERS: ADMIT Surgery; ATTEND Surgery
DX: K57.80 Diverticulitis of intestine, part unspecified, with perforation and abscess without bleeding (principal); Z88.0 Allergy status to penicillin; Z87.891 Personal history of nicotine dependence; Z11.59 Encounter for screening for other viral diseases; Z90.49 Acquired absence of other specified parts of digestive tract; Z98.890 Other specified postprocedural states
CPT/HCPCS: 36415; 74177; 80048; 80053; 81003; 83605; 83690; 85025; 85610; 85730; 87040; 87635; 93005; 96374; 96375; 99285

== ENCOUNTER 2020-03-27 19:01 | Emergency (ER) | payer BC, OTHER ==
[2020-03-27 19:06] VITALS: RESP 18; TEMP 98.3
[2020-03-27] MEDS ORDERED: IOPAMIDOL CONTRAST (ORAL USE) VIAL PO PRN (19:18)
--- NOTE | 2020-03-27 19:18 | ED ---
General Adult HPI - General Chief complaint: Urogenital Stated complaint: Post Op Bleeding Time Seen by Provider: 03/27/20 19:10 Source: patient, RN notes reviewed Mode of arrival: ambulatory Limitations: no limitations - History of Present Illness Initial comments: Patient is a pleasant 54-year-old male presenting to the emergency department with concerns for hematuria. Onset of symptoms was just prior to arrival. No dysuria. No history of similar symptoms previously. Patient was recently discharged from the hospital with diverticulitis and questionable abscess. No nausea or vomiting. patient diarrhea. No hematochezia. - Related Data Previous Rx's Medication Instructions Recorded Ciprofloxacin HCl [Cipro] 500 mg PO BID 10 Days #20 tab 03/21/20 metroNIDAZOLE [Flagyl] 500 mg PO Q8HR #30 tab 03/21/20 Allergies Allergy/AdvReac Type Severity Reaction Status Date / Time Penicillins Allergy Swelling Verified 03/27/20 19:06 Review of Systems ROS Statement: Those systems with pertinent positive or pertinent negative responses have been documented in the HPI. ROS Other: All systems not noted in ROS Statement are negative. Constitutional: Denies: fever Eyes: Denies: eye pain ENT: Denies: ear pain Respiratory: Denies: cough Cardiovascular: Denies: chest pain Endocrine: Denies: fatigue Gastrointestinal: Reports: as per HPI, abdominal pain (Improving). Denies: nausea, vomiting Genitourinary: Reports: hematuria Musculoskeletal: Denies: back pain Skin: Denies: rash Neurological: Denies: headache, weakness Past Medical History Past Medical History: No Reported History History of Any Multi-Drug Resistant Organisms: None Reported Past Surgical History: Cholecystectomy Additional Past Surgical History / Comment(s): vasectomy Past Anesthesia/Blood Transfusion Reactions: No Reported Reaction Past Psychological History: No Psychological Hx Reported Smoking Status: Former smoker Past Alcohol Use History: Occasional Past Drug Use History: None Reported - Past Family History Father Additional Family Medical History / Comment(s): heart issues with blood vessels. Mother Family Medical History: No Reported History Additional Family Medical History / Comment(s): colitis General Exam Limitations: no limitations General appearance: alert, in no apparent distress Head exam: Present: normocephalic Eye exam: Present: normal appearance Neck exam: Present: normal inspection Respiratory exam: Present: normal lung sounds bilaterally Cardiovascular Exam: Present: regular rate, normal rhythm Expanded Peripheral pulses: 2+: Dorsalis Pedis (R), Dorsalis Pedis (L) GI/Abdominal exam: Present: soft, tenderness (Mild tenderness right lower abdomen). Absent: distended Extremities exam: Present: normal inspection Neurological exam: Present: alert Psychiatric exam: Present: normal affect, normal mood Skin exam: Present: normal color Course Vital Signs 03/27/20 03/27/20 19:03 20:00 Temperature 98.3 F Pulse Rate 103 H 85 Respiratory 18 18 Rate Blood Pressure 133/90 159/109 O2 Sat by Pulse 99 97 Oximetry Medical Decision Making - Medical Decision Making Patient reevaluated and resting comfortably in bed. Patient symptom-free. Case was discussed with Dr. Oglesby twice including CT results. He is comfortable with discharge and follow-up as planned. Patient is also advised that he will need to follow-up with urologist. - Lab Data Result diagrams: 03/27/20 19:28 03/27/20 19:28 Lab Results 03/27/20 03/27/20 03/27/20 Range/Units 19:28 19:28 19:28 WBC 8.6 (3.8-10.6) k/uL RBC 5.27 (4.30-5.90) m/uL Hgb 15.3 (13.0-17.5) gm/dL Hct 46.6 (39.0-53.0) % MCV 88.3 (80.0-100.0) fL MCH 29.0 (25.0-35.0) pg MCHC 32.8 (31.0-37.0) g/dL RDW 12.6 (11.5-15.5) % Plt Count 383 (150-450) k/uL Neutrophils % 63 % Lymphocytes % 27 % Monocytes % 6 % Eosinophils % 2 % Basophils % 1 % Neutrophils # 5.4 (1.3-7.7) k/uL Lymphocytes # 2.3 (1.0-4.8) k/uL Monocytes # 0.5 (0-1.0) k/uL Eosinophils # 0.1 (0-0.7) k/uL Basophils # 0.1 (0-0.2) k/uL PT 11.0 (9.0-12.0) sec INR 1.1 (<1.2) APTT 25.5 (22.0-30.0) sec Sodium (137-145) mmol/L Potassium (3.5-5.1) mmol/L Chloride (98-107) mmol/L Carbon Dioxide (22-30) mmol/L Anion Gap mmol/L BUN (9-20) mg/dL Creatinine (0.66-1.25) mg/dL Est GFR (CKD-EPI)AfAm (>60 ml/min/1.73 sqM) Est GFR (CKD-EPI)NonAf (>60 ml/min/1.73 sqM) Glucose (74-99) mg/dL Calcium (8.4-10.2) mg/dL Total Bilirubin (0.2-1.3) mg/dL AST (17-59) U/L ALT (4-49) U/L Alkaline Phosphatase (38-126) U/L Total Protein (6.3-8.2) g/dL Albumin (3.5-5.0) g/dL Amylase (30-110) U/L Lipase (23-300) U/L Urine Color Dark Brown Urine Appearance Clear (Clear) Urine pH 5.0 (5.0-8.0) Ur Specific [place] 1.028 (1.001-1.035) Urine Protein 1+ H (Negative) Urine Glucose (UA) Negative (Negative) Urine Ketones 1+ H (Negative) Urine Blood Negative (Negative) Urine Nitrite Negative (Negative) Urine Bilirubin Negative (Negative) Urine Urobilinogen 2.0 (<2.0) mg/dL Ur Leukocyte Esterase Small H (Negative) Urine RBC 1 (0-5) /hpf Urine WBC 3 (0-5) /hpf Ur Squamous Epith Cells <1 (0-4) /hpf Hyaline Casts 11 H (0-2) /lpf Urine Mucus Many H (None) /hpf 03/27/20 Range/Units 19:28 WBC (3.8-10.6) k/uL RBC (4.30-5.90) m/uL Hgb (13.0-17.5) gm/dL Hct (39.0-53.0) % MCV (80.0-100.0) fL MCH (25.0-35.0) pg MCHC (31.0-37.0) g/dL RDW (11.5-15.5) % Plt Count (150-450) k/uL Neutrophils % % Lymphocytes % % Monocytes % % Eosinophils % % Basophils % % Neutrophils # (1.3-7.7) k/uL Lymphocytes # (1.0-4.8) k/uL Monocytes # (0-1.0) k/uL Eosinophils # (0-0.7) k/uL Basophils # (0-0.2) k/uL PT (9.0-12.0) sec INR (<1.2) APTT (22.0-30.0) sec Sodium 139 (137-145) mmol/L Potassium 3.8 (3.5-5.1) mmol/L Chloride 104 (98-107) mmol/L Carbon Dioxide 23 (22-30) mmol/L Anion Gap 12 mmol/L BUN 15 (9-20) mg/dL Creatinine 1.15 (0.66-1.25) mg/dL Est GFR (CKD-EPI)AfAm 85 (>60 ml/min/1.73 sqM) Est GFR (CKD-EPI)NonAf 73 (>60 ml/min/1.73 sqM) Glucose 107 H (74-99) mg/dL Calcium 9.9 (8.4-10.2) mg/dL Total Bilirubin 0.6 (0.2-1.3) mg/dL AST 28 (17-59) U/L ALT 36 (4-49) U/L Alkaline Phosphatase 56 (38-126) U/L Total Protein 7.6 (6.3-8.2) g/dL Albumin 4.6 (3.5-5.0) g/dL Amylase 56 (30-110) U/L Lipase 79 (23-300) U/L Urine Color Urine Appearance (Clear) Urine pH (5.0-8.0) Ur Specific [place] (1.001-1.035) Urine Protein (Negative) Urine Glucose (UA) (Negative) Urine Ketones (Negative) Urine Blood (Negative) Urine Nitrite (Negative) Urine Bilirubin (Negative) Urine Urobilinogen (<2.0) mg/dL Ur Leukocyte Esterase (Negative) Urine RBC (0-5) /hpf Urine WBC (0-5) /hpf Ur Squamous Epith Cells (0-4) /hpf Hyaline Casts (0-2) /lpf Urine Mucus (None) /hpf - Radiology Data Radiology results: report reviewed (Computed tomography scan abdomen pelvis shows slight improvement and hepatic flexure that stranding. Nodular enlarged prostate gland.), image reviewed (KUB shows nonobstructive gas pattern.) Disposition Clinical Impression: Hematuria Disposition: HOME SELF-CARE Condition: Stable Instructions (If sedation given, give patient instructions): Hematuria (ED) Additional Instructions: Please follow-up with primary care physician in the next couple days for recheck. Please follow-up with Dr. Bledsoe as scheduled. Please also follow-up with urology, Dr. Magana, phone number provided. Return for fever, increased pain, increased bleeding, worsening or changing symptoms or other concerns. Please have urologist review CT report. Is patient prescribed a controlled substance at d/c from ED?: No Referrals: Zenia Zapien MD [Primary Care Provider] - 1-2 days Dimitrios Aguilar MD [STAFF PHYSICIAN] - 1-2 days Bacilio Oglesby MD [STAFF PHYSICIAN] - 1-2 days Time of Disposition: 21:35
[2020-03-27 19:45] LABS: Basophils # (A) 0.1 k/uL (0-0.2); Basophils % (A) 1 %; Eosinophils # (A) 0.1 k/uL (0-0.7); Eosinophils % (A) 2 %; HCT 46.6 % (39.0-53.0); HGB 15.3 gm/dL (13.0-17.5); Lymphocytes # (A) 2.3 k/uL (1.0-4.8); Lymphocytes % (A) 27 %; MCHC 32.8 g/dL (31.0-37.0); MCV 88.3 fL (80.0-100.0); Mean Platelet Volume 6.8; Monocytes # (A) 0.5 k/uL (0-1.0); Monocytes % (A) 6 %; Neutrophils # (A) 5.4 k/uL (1.3-7.7); Neutrophils % (A) 63 %; Platelet Count 383 k/uL (150-450); RBC 5.27 m/uL (4.30-5.90); RDW 12.6 % (11.5-15.5); WBC 8.6 k/uL (3.8-10.6)
[2020-03-27 19:46] LABS: Albumin 4.6 g/dL (3.5-5.0); Calcium 9.9 mg/dL (8.4-10.2); Potassium 3.8 mmol/L (3.5-5.1); Total Bilirubin 0.6 mg/dL (0.2-1.3); Total Protein 7.6 g/dL (6.3-8.2)
[2020-03-27 19:51] LABS: INR 1.1 (<1.2); Partial Thromboplastin Time 25.5 sec (22.0-30.0)
[2020-03-27 20:01] LABS: Appearance,Urine Clear (Clear); Bilirubin,Urine Negative (Negative); Blood,Urine Negative (Negative); Color,Urine Dark Brown; Glucose,Urine (UA) Negative (Negative); Hyaline Casts,Urine 11 /lpf (0-2); Ketones,Urine 1+ (Negative); Leukocyte Esterase,Urine Small (Negative); Mucus,Urine Many /hpf; Nitrite,Urine Negative (Negative); Protein,Urine 1+ (Negative); RBC,Urine 1 /hpf (0-5); Specific Gravity,Urine 1.028 (1.001-1.035); Squamous Epithelial Cell,Urine <1 /hpf (0-4); WBC,Urine 3 /hpf (0-5)
--- NOTE | 2020-03-27 20:05 | XR ---
EXAMINATION TYPE: XR KUB DATE OF EXAM: 03/27/2020 7:53 PM CLINICAL HISTORY: Abdominal pain TECHNIQUE: Single upright image of the abdomen is obtained. COMPARISON: None. FINDINGS: Cholecystectomy clips are seen in the right upper quadrant. No pneumoperitoneum identified. Contrast is seen throughout the stomach and loops of small bowel. Lung bases are well aerated. No di lated large or small bowel. Moderate degenerative change of the lumbosacral junction and hips. IMPRESSION: Nonobstructive bowel gas pattern.
--- NOTE | 2020-03-27 21:16 | CT ---
EXAMINATION TYPE: CT abdomen pelvis w con DATE OF EXAM: 03/27/2020 COMPARISON: 03/17/2020 HISTORY: Hematuria , recent diverticulitis CT DLP: 1112 mGycm Automated exposure control for dose reduction was used. TECHNIQUE: Helical acquisition of images was performed from the lung bases through the pelvis. CONTRAST: Performed with Oral Contrast and with IV Contrast, patient injected with 100 mL of Isovue 300. FINDINGS: LUNG BASES: Multifocal pleural parenchymal scarring and subsegmental atelectasis of the lung bases. LIVER/GB: Hepatomegaly redemonstrated. Hepatic parenchyma is diffusely hypoattenuated in comparison to that of the spleen, most commonly seen in hepatic steatosis. This finding limits evaluation for he patic masses. 2 small to accurately characterize subcentimeter left hepatic lobe lesion is seen on im age 11. No intrahepatic biliary ductal dilatation. Gallbladder is surgically absent. PANCREAS: No significant abnormality is seen. SPLEEN: No significant abnormality is seen. ADRENALS: No nodularity or thickening. KIDNEYS: Kidneys enhance and excrete symmetrically without hydronephrosis. FREE AIR: No free air is visualized. ADENOPATHY: No greater than 1 cm short axis lymph nodes in the abdomen or pelvis. OSSEOUS STRUCTURES: Osseous lesions of the right pubic bone may relate to a small osteochondroma or bony excrescence. Mild multilevel degenerative changes of the spine. Degenerative change of the sacr oiliac joints. BOWEL: There is mild improvement in the pericolonic fat stranding surrounding the hepatic flexure wi th bowel wall thickening. No pericolonic abscess is seen. Fat stranding extends to the inferior right hepatic lobe. No dilated large or small bowel. Appendix is within normal limits. Some fluid-filled l oops of small bowel containing air-fluid levels suggesting mild degree of ileus. OTHER: There is a fat-containing ventral abdominal hernia. Prostate gland is heterogenous and nodular containing central zone calcifications. There is slight hyperemia of the left seminal vesicles in co mparison to the right. Mild atherosclerosis of the abdominal aorta and its branches. IMPRESSION: 1. SLIGHT IMPROVEMENT IN THE HEPATIC FLEXURE PERICOLONIC FAT STRANDING. CONSIDERATIONS ARE FOR COLITI S OR DIVERTICULITIS HOWEVER COLONOSCOPY IS RECOMMENDED TO EXCLUDE UNDERLYING NEOPLASM GIVEN THE BOWEL WALL THICKENING. 2. NODULAR ENLARGED HETEROGENOUS PROSTATE GLAND WITH SLIGHT HYPEREMIA OF THE LEFT SEMINAL VESICLES IN COMPARISON TO THE RIGHT. ALTHOUGH THIS COULD BE AN INCIDENTAL FINDING CORRELATION WITH PSA IS RECOMM ENDED. 3. HEPATIC STEATOSIS.
[2020-03-27 21:46] VITALS: BP 144/97; PULSE 77
== END 2020-03-27 21:44 | disposition home or self-care (01) ==
LOC: EC 19:01
DX: R31.9 Hematuria, unspecified (principal); Z88.0 Allergy status to penicillin; Z87.891 Personal history of nicotine dependence; Z90.49 Acquired absence of other specified parts of digestive tract
CPT/HCPCS: 99284; 36415; 80053; 82150; 83690; 85025; 85610; 85730; 81001; 74018; 74177; Q9967

== ENCOUNTER → 2020-04-09 | Outpatient (CLI) | payer BC ==
[2020-04-09 14:11] LABS: Potassium 4.6 mmol/L (3.5-5.1)
[2020-04-09 14:17] LABS: HCT 45.7 % (39.0-53.0); HGB 15.2 gm/dL (13.0-17.5); MCH 29.6 pg (25.0-35.0); MCHC 33.2 g/dL (31.0-37.0); MCV 89.1 fL (80.0-100.0); Platelet Count 276 k/uL (150-450); RBC 5.13 m/uL (4.30-5.90); RDW 12.7 % (11.5-15.5); WBC 6.2 k/uL (3.8-10.6)
== END | disposition home or self-care (01) ==
LOC: LABPAT 11:29
PROVIDERS: ATTEND Surgery
DX: Z01.818 Encounter for other preprocedural examination (principal); K57.33 Diverticulitis of large intestine without perforation or abscess with bleeding
CPT/HCPCS: 36415; 80051; 85027; 86850; 86900; 86901

== ENCOUNTER 2020-04-19 08:38 | Day surgery (SDC) | payer BC ==
[2020-04-17 13:36] VITALS: BMI 25.7
[~2020-04-19 08:38] MED LIST: LACTATED RINGERS 1,000 ML IV SCH
[2020-04-19 09:13] VITALS: RESP 16; TEMP 97.1
[2020-04-19] MEDS ORDERED: MIDAZOLAM 2 MG/2 ML VIAL ONE (09:31)
[2020-04-19] MEDS ORDERED: fentaNYL (PF) 50 MCG/ML 2 ML AMP ONE (09:31)
[2020-04-19] MEDS ORDERED: PROPOFOL 10 MG/ML 20 ML VIAL IV ONE (09:31)
--- NOTE | 2020-04-19 09:34 | P.GSHP ---
History of Present Illness H&P Date: 04/19/20 Chief Complaint: Diverticulitis This a 54-year-old male recent hospital admission for diverticulitis. Patient rents today for colonoscopy. Past Medical History Past Medical History: No Reported History Additional Past Medical History / Comment(s): diverticulitis with abscess History of Any Multi-Drug Resistant Organisms: None Reported Past Surgical History: Cholecystectomy Additional Past Surgical History / Comment(s): vasectomy Past Anesthesia/Blood Transfusion Reactions: Previous Problems w/ Anesthesia Additional Past Anesthesia/Blood Transfusion Reaction / Comment(s): difficult intubation with cholecystectomy intubated through nose Smoking Status: Former smoker - Past Family History Father Family Medical History: Hypertension Additional Family Medical History / Comment(s): heart issues with blood vessels. Mother Family Medical History: No Reported History Additional Family Medical History / Comment(s): colitis Medications and Allergies Home Medications Medication Instructions Recorded Confirmed Type No Known Home Medications 04/17/20 04/17/20 History Allergies Allergy/AdvReac Type Severity Reaction Status Date / Time Penicillins Allergy Swelling Verified 04/19/20 08:53 Surgical - Exam Vital Signs Temp Pulse Resp BP Pulse Ox 97.1 F L 71 16 141/91 98 04/19/20 09:09 04/19/20 09:09 04/19/20 09:09 04/19/20 09:09 04/19/20 09:09 - General well developed, well nourished, no distress - Eyes PERRL - ENT normal pinna - Neck no masses - Respiratory normal expansion - Cardiovascular Rhythm: regular - Abdomen Abdomen: soft, non tender Assessment and Plan Assessment: History of diverticulitis. We'll perform colonoscopy.
--- NOTE | 2020-04-19 09:48 | P.OP ---
Date of Procedure: 04/19/20 Preoperative Diagnosis: Diverticulitis Postoperative Diagnosis: Mild diverticulosis Procedure(s) Performed: Colonoscopy Anesthesia: MAC Surgeon: Bacilio Oglesby Pathology: none sent Condition: stable Disposition: PACU Description of Procedure: Patient's placed on the endoscopy table in the lateral position. He received IV sedation. Digital rectal exam was performed which revealed no rales. The possible colonoscope was then placed patient anus and passed rotator entire colon. The ileocecal valve was visually's. The cecum and ascending colon. Normal. At the level of the hepatic flexure the previously seen information on CAT scan appeared to be resolved. There was a few scattered diverticula. Scope was then brought back and the remainder of the transverse colon appeared normal. In the descending; a few scattered diverticula. The scope was then brought back the rectum and this appeared normal. Scope withdrawn for patient.
[2020-04-19 10:14] VITALS: BP 155/88; PULSE 73
== END 2020-04-19 10:57 | disposition home or self-care (01) ==
LOC: ORWHC2ENDO 08:38
PROVIDERS: ATTEND Surgery
DX: K57.30 Diverticulosis of large intestine without perforation or abscess without bleeding (principal); Z90.49 Acquired absence of other specified parts of digestive tract; Z98.52 Vasectomy status; Z91.89 Other specified personal risk factors, not elsewhere classified; Z87.891 Personal history of nicotine dependence; Z88.0 Allergy status to penicillin; K08.89 Other specified disorders of teeth and supporting structures; Z82.49 Family history of ischemic heart disease and other diseases of the circulatory system; Z83.79 Family history of other diseases of the digestive system
CPT/HCPCS: 45378; J2250; J3010; J2704

== ENCOUNTER 2020-04-20 05:31 | Inpatient (IN) | payer BC ==
[2020-04-17 13:59] VITALS: BMI 25.7
[~2020-04-20 05:31] MED LIST changes: +ACETAMINOPHEN TAB 500 MG TAB PO ONE; +HEPARIN SODIUM,PORCINE 5,000 UNIT/ML 1 ML VIAL SQ ONE; -LACTATED RINGERS 1,000 ML IV SCH; +metroNIDAZOLE-NS PMX 500 MG in SALINE 1 100ML.BAG IVPB ONE
[2020-04-20] MEDS ORDERED: LIDOCAINE 1% (10MG/ML) FOR IV START INTRADERMA PRN (05:37)
[2020-04-20] MEDS ORDERED: DEXAMETHASONE SOD PHOSPHATE 10 MG/ML 1 ML VIAL IV ONE (05:37)
[2020-04-20] MEDS ORDERED: ONDANSETRON 4 MG/2 ML VIAL IVP ONE (05:37)
[2020-04-20] MEDS ORDERED: ONDANSETRON 4 MG/2 ML VIAL IVP PRN ×2 (05:37→08:38)
[2020-04-20] MEDS ORDERED: ACETAMINOPHEN TAB 500 MG TAB ONE (05:58)
[2020-04-20] MEDS ORDERED: HEPARIN SODIUM,PORCINE 5,000 UNIT/ML 1 ML VIAL ONE (06:00)
[2020-04-20] MEDS ORDERED: ONDANSETRON 4 MG/2 ML VIAL ONE (06:00)
[2020-04-20] MEDS: LACTATED RINGERS 1,000 ML IV SCH (06:20)
[2020-04-20] MEDS ORDERED: MIDAZOLAM 2 MG/2 ML VIAL IV ONE (06:52)
[2020-04-20] MEDS ORDERED: LIDOCAINE 2% (PF) 20 MG/ML 5 ML VIAL ONE (06:56)
--- NOTE | 2020-04-20 06:56 | P.GSHP ---
History of Present Illness H&P Date: 04/20/20 Chief Complaint: Diverticulitis This a 54-year-old male who had a recent hospital for diverticulitis with abscess. Patient rents today for colonic resection. Past Medical History Past Medical History: No Reported History Additional Past Medical History / Comment(s): diverticulitis with abscess History of Any Multi-Drug Resistant Organisms: None Reported Past Surgical History: Cholecystectomy Additional Past Surgical History / Comment(s): vasectomy Past Anesthesia/Blood Transfusion Reactions: Previous Problems w/ Anesthesia Additional Past Anesthesia/Blood Transfusion Reaction / Comment(s): difficult intubation with cholecystectomy intubated through nose Smoking Status: Former smoker - Past Family History Father Family Medical History: Hypertension Additional Family Medical History / Comment(s): heart issues with blood vessels. Mother Family Medical History: No Reported History Additional Family Medical History / Comment(s): colitis Medications and Allergies Home Medications Medication Instructions Recorded Confirmed Type No Known Home Medications 04/17/20 04/20/20 History Allergies Allergy/AdvReac Type Severity Reaction Status Date / Time Penicillins Allergy Swelling Verified 04/20/20 05:54 Surgical - Exam Vital Signs Temp Pulse Resp BP Pulse Ox 96.8 F L 78 16 130/83 97 04/20/20 05:46 04/20/20 05:46 04/20/20 05:46 04/20/20 05:46 04/20/20 05:46 - General well developed, well nourished, no distress - Eyes PERRL - ENT normal pinna - Neck no masses - Respiratory normal expansion - Cardiovascular Rhythm: regular - Abdomen Tender right upper quadrant Abdomen: soft Results - Imaging CT scan - abdomen: report reviewed (Evidence of colonic abscess and inflammation near hepatic flexure) Assessment and Plan Assessment: History of diverticulitis with abscess. Patient will undergo colonic resection today. He is aware the risk of colostomy wound infection bleeding.
[2020-04-20] MEDS ORDERED: SUCCINYLCHOLINE CHLORIDE 100 MG/5 ML SYR IV ONE (07:15)
[2020-04-20] MEDS ORDERED: HYDROmorphone (PF) 1 MG/ML ONE (07:15)
[2020-04-20] MEDS ORDERED: PHENYLEPHRINE-0.9% NACL SYG 1 MG/10 ML SYRINGE ONE (07:15)
[2020-04-20] MEDS ORDERED: LIDOCAINE 1% INJ 10MG/ML (20 ML MDV) ONE (07:15)
[2020-04-20] MEDS ORDERED: fentaNYL (PF) 50 MCG/ML 2 ML AMP ONE (07:15)
[2020-04-20] MEDS ORDERED: PROPOFOL 10 MG/ML 20 ML VIAL IV ONE (07:15)
[2020-04-20] MEDS ORDERED: ROCURONIUM BROMIDE 10 MG/ML 5 ML VIAL IV ONE (07:15)
[2020-04-20] MEDS ORDERED: GLYCOPYRROLATE 0.2 MG/ML 2 ML VIAL ONE (07:15)
[2020-04-20] MEDS ORDERED: NEOSTIGMINE 1 MG/ML 10 ML VIAL ONE (07:15)
[2020-04-20] MEDS ORDERED: MIDAZOLAM 2 MG/2 ML VIAL ONE (07:15)
[2020-04-20] MEDS ORDERED: NALOXONE 0.4 MG/ML 1 ML VIAL IV PRN (08:08)
--- NOTE | 2020-04-20 08:11 | P.ANPRN ---
Procedure Note - Anesthesia - Epidural/Spinal Epidural Continuous Time Out Performed: Yes Date of Procedure: 04/20/20 Procedure Start Time: 06:45 Procedure Stop Time: 06:50 Location of Patient: PreOp Indication: Acute Post-Operative Pain, Requested by Surgeon Sedation Type: Sedate with meaningful contact maintained Preparation: Sterile Dressing Position: Sitting Catheter: Indwelling Needle Guage: 18 Injectate: Test Dose Lidocaine1.5% w/1:200,000 epi Blood Aspirated: No Pain Paresthesia on Injection Noted: No Events: Uneventful and Well Tolerated
[2020-04-20] MEDS ORDERED: BENZOCAINE/MENTHOL LOZENG 1 EACH LOZENGE MUCOUS MEM PRN (08:38)
[2020-04-20] MEDS ORDERED: LACTATED RINGERS 1,000 ML IV ONE (08:47)
--- NOTE | 2020-04-20 08:55 | P.OP ---
Date of Procedure: 04/20/20 Preoperative Diagnosis: Colonic abscess Postoperative Diagnosis: History of colonic abscess Ventral hernia incarcerated Procedure(s) Performed: Partial right colectomy at hepatic flexure Partial omentectomy Repair of incarcerated ventral hernia Anesthesia: PRUDENCE Surgeon: Bacilio Oglesby Estimated Blood Loss (ml): 50 Pathology: other (Hepatic flexure,Omentum) Condition: stable Disposition: PACU Description of Procedure: The patient's placed on the operating table in the supine position. He received general anesthesia. His abdomen was prepped and draped usual sterile fashion. The abdomen was entered through a upper midline incision. The patient had an incarcerated ventral hernia located just below the umbilicus. The incarcerated omentum was dissected free from the hernia The Bookwalter retractors placed a wound. The right colon was examined. In the level of the proximal transverse colon appeared to be some inflammatory changes with the omentum stuck on the colon. Due to previous history of abscess in this area. Site perform a limited hepatic flexure proximal transverse colon resection. The distal right colon and the mid transverse colon was transected with the KEIRA stapler. Using the Enseal device the mesentery the bowel was divided. The specimens to pathology. A [id number] functional end-to-end staple anastomosis was then created between the proximal and distal colon using the KEIRA and TA stapler. A 3-0 GI silk sutures using a crotch stitch. The abdomen was irrigated there is no bleeding seen. Portion of omentum appeared nonviable and this was transected with the Enseal device. The omentum was sent to pathology. No other bleeding was seen. The fascia was then closed with looped PDS suture. The hernia was repaired at the time of fashion closure. The skin was stapled. Patient top she will was sent to recovery room in stable condition.
[2020-04-20] MEDS: ROPIVACAINE 250 MG, HYDROMORPHONE (PF) 5 MG in SODIUM CHLORIDE 0.9% 200 ML EPIDURAL PRN ×2 (08:57→10:45)
[2020-04-20] MEDS: HYDROmorphone 0.5 MG/0.5 ML SYRINGE IVP PRN ×3 (09:03→09:28)
[2020-04-20] MEDS: KETOROLAC 30 MG/ML 1 ML VIAL IVP SCH ×5 (09:37→23:27)
[2020-04-20] MEDS ORDERED: diphenhydrAMINE 50 MG/ML 1 ML VIAL IVP ONE (11:16)
[2020-04-20] MEDS: D5-0.45% NACL WITH KCL 20MEQ/L 1,000 ML IV SCH ×2 (14:29→20:47)
[2020-04-20 14:33] LABS: Basophils % (A) 0 %; Eosinophils % (A) 0 %; HGB 14.7 gm/dL (13.0-17.5); Lymphocytes # (A) 0.4 k/uL (1.0-4.8); Lymphocytes % (A) 3 %; MCH 29.8 pg (25.0-35.0); MCHC 33.4 g/dL (31.0-37.0); MCV 89.4 fL (80.0-100.0); Mean Platelet Volume 7.2; Monocytes # (A) 0.8 k/uL (0-1.0); Monocytes % (A) 6 %; Neutrophils # (A) 12.2 k/uL (1.3-7.7); Neutrophils % (A) 90 %; Platelet Count 237 k/uL (150-450); RBC 4.92 m/uL (4.30-5.90); RDW 12.8 % (11.5-15.5); WBC 13.6 k/uL (3.8-10.6)
[2020-04-20 14:36] LABS: African American GFR (CKD) >90 (>60 ml/min/1.73 sqM); Anion Gap 6 mmol/L; Blood Urea Nitrogen 17 mg/dL (9-20); Calcium 9.2 mg/dL (8.4-10.2); Carbon Dioxide 30 mmol/L (22-30); Chloride 100 mmol/L (98-107); Glucose 131 mg/dL (74-99); Non-African American GFR(CKD) 85 (>60 ml/min/1.73 sqM); Potassium 4.9 mmol/L (3.5-5.1); Sodium 136 mmol/L (137-145)
--- NOTE | 2020-04-20 18:58 | CONS ---
CONSULTATION DATE OF SERVICE: 04/20/2020 REASON FOR CONSULTATION: Advice regarding cholecystomy and other medical issues, requested by Dr. Oglesby. HISTORY OF PRESENT ILLNESS: This 54-year-old gentleman with a past medical history of had diverticulitis with diverticular abscess. The patient underwent partial right colectomy at hepatic flexure and partial omentectomy, repair of incarcerated hernia by Dr. Oglesby. The patient is being closely monitored. There is no history of any chest pain. No history of palpitation, headache, loss of consciousness, seizures, nausea, vomiting, diarrhea, fever. The patient is followed by Dr. Zapien in the outpatient setting. PAST MEDICAL HISTORY: Diverticulosis abscesses, history of cholecystectomy, vasectomy. HOME MEDICATIONS: None. ALLERGIES: PENICILLIN. FAMILY HISTORY: History of heart disease. SOCIAL HISTORY: Previous smoking. Occasional alcohol intake. REVIEW OF SYSTEMS: ENT: No diminished hearing. No diminished vision. CARDIOVASCULAR SYSTEM: No angina, palpitations. RESPIRATORY SYSTEM: No cough, hemoptysis. GI: As mentioned earlier. : No dysuria or retention. NERVOUS SYSTEM: No numbness, weakness. ALLERGY/IMMUNOLOGY: No asthma, hayfever. MUSCULOSKELETAL: As mentioned earlier. HEMATOLOGY/ONCOLOGY: No history of anemia. ENDOCRINE: No history of diabetes, hypothyroidism. CONSTITUTIONAL: As mentioned earlier. DERMATOLOGY: Negative. RHEUMATOLOGY: Negative. PSYCHIATRY: As mentioned earlier. PHYSICAL EXAMINATION: Patient is alert, oriented x3. Pulse 83. Blood pressure 128/78, respiration 16, temperature 97.7, pulse ox 96% on room air. HEENT: Conjunctivae normal. NECK: No jugular venous distention. CARDIOVASCULAR SYSTEM: S1, S2 muffled. No S3. No S4. RESPIRATORY SYSTEM: Breath sounds diminished at the bases. No rhonchi. No crackles. ABDOMEN: Soft, obese. Status post surgery. LEGS: No edema. No swelling. NERVOUS SYSTEM: No focal deficit. LABS: CBC within normal limits. UA noted. The preoperative labs and the coags are normal. ASSESSMENT: 1. Status post partial right colectomy at hepatic flexure, partial omentectomy and repair of incarcerated ventral hernia. 2. History of diverticulitis with abscess. 3. Cholecystectomy. 4. Remote history of nicotine dependence. RECOMMENDATIONS AND DISCUSSION: In this 54-year-old gentleman who presented after surgery, at this time patient appears to be medically stable. I recommend to continue current medications, continue with the monitoring, symptomatic treatment. DVT prophylaxis. Otherwise, proton pump inhibitors. Will follow the patient closely. Incentive spirometry. The patient may be asked to follow with Dr. Zapien closely after discharge. Thank you, Dr. Oglesby, for letting us participate in the care of this patient. MMODL / IJN: [id number] / MTDD
[2020-04-20] MEDS: HEPARIN SODIUM,PORCINE 5,000 UNIT/ML 1 ML VIAL SQ SCH (20:48)
[2020-04-21] MEDS ORDERED: diphenhydrAMINE 50 MG/ML 1 ML VIAL IVP STA (02:30)
[2020-04-21] MEDS ORDERED: diphenhydrAMINE 50 MG/ML 1 ML VIAL IVP PRN (02:34)
[2020-04-21] MEDS: LACTATED RINGERS 1,000 ML IV SCH (03:33)
[2020-04-21] MEDS: ROPIVACAINE 250 MG, HYDROMORPHONE (PF) 5 MG in SODIUM CHLORIDE 0.9% 200 ML EPIDURAL PRN (04:10)
[2020-04-21] MEDS: D5-0.45% NACL WITH KCL 20MEQ/L 1,000 ML IV SCH ×3 (04:10→20:20)
[2020-04-21] MEDS: KETOROLAC 30 MG/ML 1 ML VIAL IVP SCH ×4 (06:15→23:41)
[2020-04-21] MEDS: HEPARIN SODIUM,PORCINE 5,000 UNIT/ML 1 ML VIAL SQ SCH ×2 (07:30→20:19)
[2020-04-21] MEDS: PANTOPRAZOLE 40 MG TABLET PO SCH (07:30)
[2020-04-21] MEDS: ALVIMOPAN 12 MG CAPSULE PO SCH ×2 (07:30→20:20)
--- NOTE | 2020-04-21 11:44 | P.PN ---
Subjective Progress Note Date: 04/21/20 Principal diagnosis: History of colonic abscess The patient's postoperative day 1 from right colectomy. Patient is doing quite well. Objective - Vital Signs Vital signs: Vital Signs Temp 98.7 F 04/21/20 07:20 Pulse 67 04/21/20 07:20 Resp 18 04/21/20 07:20 BP 124/78 04/21/20 07:20 Pulse Ox 92 L 04/21/20 07:20 Intake & Output 04/20/20 04/21/20 04/21/20 18:59 06:59 18:59 Intake Total 1426.5 2094.667 Output Total 350 2100 Balance 1076.5 -5.333 Intake: IV 1426.5 Intake, IV Titration 2094.667 Amount D5-0.45% NaCl with KCl 2000 20Meq/l 1,000 ml @ 125 mls/hr IV .Q8H [facility] Rx#: [id number] Ropivacaine 250 mg 94.667 Hydromorphone (Pf) 5 mg In Sodium Chloride 0.9% 200 ml @ Per Protocol EPIDURAL .Q0M PRN Rx#: [id number] Output: Urine 300 2100 Estimated Blood Loss 50 Other: Voiding Method Indwelling Catheter Indwelling Catheter Indwelling Catheter - Constitutional General appearance: Present: cooperative - Gastrointestinal Gastrointestinal Comment(s): Abdomen soft. Incision site is clean dry intact - Labs CBC & Chem 7: 04/20/20 14:07 04/20/20 14:07 Labs: Abnormal Lab Results - Last 24 Hours (Table) 04/20/20 04/20/20 Range/Units 14:07 14:07 WBC 13.6 H (3.8-10.6) k/uL Neutrophils # 12.2 H (1.3-7.7) k/uL Lymphocytes # 0.4 L (1.0-4.8) k/uL Sodium 136 L (137-145) mmol/L Glucose 131 H (74-99) mg/dL Assessment and Plan Plan: Status post right colectomy. Patient will continue supportive care. We will increase his diet tomorrow.
[2020-04-21 17:13] LABS: ALT 38 U/L (4-49); AST 73 U/L (17-59); African American GFR (CKD) >90 (>60 ml/min/1.73 sqM); Albumin 3.6 g/dL (3.5-5.0); Alkaline Phosphatase 39 U/L (38-126); Anion Gap 4 mmol/L; Blood Urea Nitrogen 8 mg/dL (9-20); Calcium 8.7 mg/dL (8.4-10.2); Carbon Dioxide 28 mmol/L (22-30); Chloride 102 mmol/L (98-107); Glucose 95 mg/dL (74-99); Non-African American GFR(CKD) >90 (>60 ml/min/1.73 sqM); Sodium 134 mmol/L (137-145); Total Bilirubin 1.1 mg/dL (0.2-1.3); Total Protein 6.4 g/dL (6.3-8.2)
--- NOTE | 2020-04-21 18:38 | P.PN ---
Progress Note - Text 04/21 3857 54-year-old male status post low anterior resection by Dr. Oglesby. Patient has an epidural catheter for postop pain control with the solution running at 8 mL an hour. Patient has a VAS of 2 with no motor or sensory deficits. Patient has been ambulating. Plan to continue epidural infusion
[2020-04-21 18:49] LABS: Appearance,Urine Clear (Clear); Bacteria,Urine Rare /hpf; Bilirubin,Urine Negative (Negative); Blood,Urine Moderate (Negative); Color,Urine Light Yellow; Glucose,Urine (UA) Negative (Negative); Ketones,Urine Negative (Negative); Leukocyte Esterase,Urine Negative (Negative); Mucus,Urine Rare /hpf; Nitrite,Urine Negative (Negative); Protein,Urine Negative (Negative); RBC,Urine 1 /hpf (0-5); Specific Gravity,Urine 1.005 (1.001-1.035); Urobilinogen,Urine <2.0 mg/dL (<2.0); WBC,Urine 2 /hpf (0-5)
--- NOTE | 2020-04-21 20:38 | PN ---
PROGRESS NOTE DATE OF SERVICE: 04/21/2020 This 54-year-old gentleman who was admitted with right partial colectomy, is improving significantly. No chest pain. No palpitations. No fever. PHYSICAL EXAMINATION: Alert and oriented x2. Pulse 68, blood pressure 146/87, respirations 16, temp 99.2, pulse ox 98% on room. HEENT: Conjunctivae normal. Oral mucosa moist. NECK: No jugular venous distention. No lymph node enlargement. CARDIOVASCULAR: S1, S2, muffled. No S3, no S4, RESPIRATORY: Diminished breath sounds at the bases. A few rhonchi, no crackles. ABDOMEN: Soft, nontender. Status post surgery. LEGS: No edema, no swelling. NERVOUS SYSTEM: No focal deficits. LABS: WBC 13.6, sodium is 130. ASSESSMENT: 1. Status post partial right colectomy of hepatic flexure, partial omentectomy and repair of incarcerated ventral hernia. 2. History of diverticulitis with abscess. 3. Cholecystectomy. 4. Remote history of nicotine dependence. 5. Hyponatremia. 6. Increased WBC. 7. FULL CODE. RECOMMENDATIONS AND DISCUSSION: In this 54-year-old gentleman admitted with multiple medical issues, we will monitor the patient closely, continue the current management and symptomatic treatment. Otherwise, at this time I recommend incentive spirometry, repeat labs. Prognosis guarded. Further recommendations to follow. MMODL / IJN: [id number] /
[2020-04-22] MEDS: D5-0.45% NACL WITH KCL 20MEQ/L 1,000 ML IV SCH ×3 (05:52→20:27)
[2020-04-22] MEDS: LACTATED RINGERS 1,000 ML IV SCH (05:53)
[2020-04-22] MEDS: ROPIVACAINE 250 MG, HYDROMORPHONE (PF) 5 MG in SODIUM CHLORIDE 0.9% 200 ML EPIDURAL PRN (05:53)
--- NOTE | 2020-04-22 09:22 | P.PN ---
Progress Note - Text Progress Note Date: 04/22/20 Patient is doing well. He had a bowel movement yesterday. On exam her vital signs are stable. Abdomen soft. Status post partial right colectomy. Patient will have his diet advanced.
[2020-04-22 09:26] LABS: Basophils % (A) 0 %; Eosinophils # (A) 0.1 k/uL (0-0.7); Eosinophils % (A) 1 %; HCT 38.2 % (39.0-53.0); HGB 12.7 gm/dL (13.0-17.5); Lymphocytes # (A) 1.2 k/uL (1.0-4.8); Lymphocytes % (A) 16 %; MCH 30.1 pg (25.0-35.0); MCHC 33.1 g/dL (31.0-37.0); MCV 90.8 fL (80.0-100.0); Mean Platelet Volume 7.7; Monocytes # (A) 0.5 k/uL (0-1.0); Monocytes % (A) 6 %; Neutrophils # (A) 5.7 k/uL (1.3-7.7); Neutrophils % (A) 75 %; Platelet Count 197 k/uL (150-450); RBC 4.21 m/uL (4.30-5.90); RDW 12.8 % (11.5-15.5); WBC 7.5 k/uL (3.8-10.6)
[2020-04-22] MEDS: HEPARIN SODIUM,PORCINE 5,000 UNIT/ML 1 ML VIAL SQ SCH ×2 (09:29→20:27)
[2020-04-22] MEDS: ALVIMOPAN 12 MG CAPSULE PO SCH ×2 (09:29→20:27)
[2020-04-22] MEDS: PANTOPRAZOLE 40 MG TABLET PO SCH (09:29)
--- NOTE | 2020-04-23 02:22 | PN ---
PROGRESS NOTE DATE OF SERVICE: 04/22/2020 This 54-year-old gentleman who was admitted after partial colectomy of hepatic flexure is improving significantly. No chest pain. No palpitations. No fever. PHYSICAL EXAMINATION: On exam, alert and oriented x3. Pulse is 83, blood pressure 185/96, respirations 16, temperature 98.9, pulse ox 96% on room air. HEENT: Conjunctivae normal. NECK: No jugular venous distention. CARDIOVASCULAR: S1, S2 muffled. RESPIRATORY: Breath sounds diminished at the bases. A few scattered rhonchi and crackles. ABDOMEN: Soft, status post surgery. LEGS: No edema, no swelling. NERVOUS SYSTEM: No focal deficits. LABS: WBC 7.5, hemoglobin 12.7. UA noted. ASSESSMENT: 1. Status post partial right colectomy of hepatic flexure and partial omentectomy for repair of incarcerated ventral hernia. 2. History of diverticulitis with abscess. 3. Hypertension. 4. Cholecystectomy. 5. Remote history of nicotine dependence. 6. Hyponatremia. 7. Increased WBC reactive, improved. 8. FULL CODE. RECOMMENDATIONS AND DISCUSSION: Recommend to continue current medications, continue with monitoring and symptomatic treatment. Otherwise, at this time I would recommend to follow the patient closely and continue on IV fluids and monitor blood pressure closely and further recommendations to follow. MMODL / IJN: [id number] /
[2020-04-23] MEDS: LACTATED RINGERS 1,000 ML IV SCH (04:43)
--- NOTE | 2020-04-23 06:49 | P.PN ---
Progress Note - Text 04/22 1900 54-year-old male status post low anterior resection by Dr. Oglesby. Patient has an epidural catheter for postop pain control with solution running at 8 mL an hour with a VAS of 5. No motor or sensory deficit noted ambulating. I asked the nurse to increase the rate to 10 mL an hour
--- NOTE | 2020-04-23 07:07 | P.PN ---
Progress Note - Text 04/23 645am 54-year-old male status post low anterior resection by Dr. Oglesby. Patient has an epidural catheter for postop pain control with the solution running at 10 mL an hour. Patient has a VAS of 2 with no motor or sensory deficits. Step very well last night. Plantar VCD epidural nurse informed
[2020-04-23] MEDS: PANTOPRAZOLE 40 MG TABLET PO SCH (07:26)
[2020-04-23] MEDS: ALVIMOPAN 12 MG CAPSULE PO SCH ×2 (07:26→20:51)
[2020-04-23] MEDS: HEPARIN SODIUM,PORCINE 5,000 UNIT/ML 1 ML VIAL SQ SCH ×2 (07:26→20:51)
[2020-04-23] MEDS ORDERED: HYDROmorphone 1 MG/ML 1 ML SYRINGE IM PRN (08:25)
[2020-04-23 09:03] LABS: Basophils % (A) 0 %; Eosinophils # (A) 0.2 k/uL (0-0.7); Eosinophils % (A) 2 %; HCT 39.4 % (39.0-53.0); HGB 13.3 gm/dL (13.0-17.5); Lymphocytes # (A) 1.3 k/uL (1.0-4.8); Lymphocytes % (A) 18 %; MCH 30.2 pg (25.0-35.0); MCHC 33.6 g/dL (31.0-37.0); MCV 89.7 fL (80.0-100.0); Mean Platelet Volume 7.8; Monocytes # (A) 0.4 k/uL (0-1.0); Monocytes % (A) 6 %; Neutrophils # (A) 5.2 k/uL (1.3-7.7); Neutrophils % (A) 73 %; Platelet Count 230 k/uL (150-450); RBC 4.39 m/uL (4.30-5.90); RDW 12.7 % (11.5-15.5); WBC 7.2 k/uL (3.8-10.6)
[2020-04-23] MEDS: HYDROcodone/APAP 7.5-325MG 1 EACH TAB PO PRN ×2 (11:32→20:51)
--- NOTE | 2020-04-23 15:49 | P.PN ---
Progress Note - Text Progress Note Date: 04/23/20 The patient is resting comfortable in bed. He is tolerating diet. He's had multiple dominant. On exam vitals are stable. Abdomen soft. Incisions clean and intact Status post partial right colectomy. Patient will be discharged home the next 24-48 hours.
[2020-04-23] MEDS: D5-0.45% NACL WITH KCL 20MEQ/L 1,000 ML IV SCH (17:29)
--- NOTE | 2020-04-23 21:48 | PN ---
PROGRESS NOTE DATE OF SERVICE: 04/23/2020 This 54-year-old gentleman who was admitted after partial right colectomy is being closely monitored. No chest pain. No palpitations. No fever. PHYSICAL EXAMINATION: Alert and oriented x3. Pulse is 80, blood pressure 150/69, respiration 18, temperature 98.6, pulse ox 96% on room air. HEENT: Conjunctivae normal. NECK: No jugular venous distention. CARDIOVASCULAR SYSTEM: S1, S2 muffled. RESPIRATORY SYSTEM: Breath sounds diminished at the bases. No rhonchi. No crackles. ABDOMEN: Soft, non-tender. LEGS: No edema. No swelling. NERVOUS SYSTEM: No focal deficit. LABS: CBC within normal limits. ASSESSMENT: 1. Status post partial right colectomy for hepatic flexure and partial omentectomy for repair of incarcerated ventral hernia. 2. History of diverticulitis with abscesses. 3. Hypertension. 4. Cholecystectomy. 5. Remote history of nicotine dependence. 6. Hyponatremia. 7. Increased white count, reactive, improved. 8. FULL CODE. RECOMMENDATIONS AND DISCUSSION: I recommend to continue current medications, continue with the monitoring, symptomatic treatment. Continue with the pain management. Closely follow with Surgery. Continue the rest of the medications. DVT prophylaxis. Further recommendations to follow. MMODL / IJN: [id number] /
[2020-04-24] MEDS: HYDROcodone/APAP 7.5-325MG 1 EACH TAB PO PRN ×3 (02:02→13:39)
[2020-04-24 02:32] VITALS: RESP 16
[2020-04-24] MEDS: LACTATED RINGERS 1,000 ML IV SCH (04:15)
[2020-04-24] MEDS: HEPARIN SODIUM,PORCINE 5,000 UNIT/ML 1 ML VIAL SQ SCH (08:07)
[2020-04-24] MEDS: ALVIMOPAN 12 MG CAPSULE PO SCH (08:07)
[2020-04-24] MEDS: PANTOPRAZOLE 40 MG TABLET PO SCH (08:07)
[2020-04-24] MEDS: D5-0.45% NACL WITH KCL 20MEQ/L 1,000 ML IV SCH (08:08)
[2020-04-24 08:45] VITALS: BP 156/90; PULSE 70; TEMP 98.3
--- NOTE | 2020-04-24 10:10 | P.DS ---
Providers Date of admission: 04/20/20 05:31 Expected date of discharge: 04/24/20 Attending physician: Bacilio Oglesby Consults: 04/20/20 08:38 Consult Physician Routine Consulting Provider: Garcia Faulkner Consult Reason/Comments: medical mangement Do you want consulting provider notified?: Yes [facility] Course: This a 54-year-old male who underwent partial right colectomy for previous history of colonic abscess. Patient did well postoperatively. Please see hospital chart for details. Procedures: Right colectomy Patient Condition at Discharge: Good Plan - Discharge Summary Discharge Rx Participant: No New Discharge Prescriptions: New Docusate [Colace] 100 mg PO BID #20 capsule HYDROcodone/APAP 5-325MG [[place] 5-325] 1 tab PO Q6HR PRN #10 tab PRN Reason: Pain Discharge Medication List Docusate [Colace] 100 mg PO BID #20 capsule 04/24/20 [Rx] HYDROcodone/APAP 5-325MG [[place] 5-325] 1 tab PO Q6HR PRN #10 tab 04/24/20 [Rx] Follow up Appointment(s)/Referral(s): Bacilio Oglesby MD [STAFF PHYSICIAN] - 1 Week Patient Instructions/Handouts: Diverticulitis (DC)
[2020-04-24 11:26] LABS: Basophils % (A) 0 %; Eosinophils # (A) 0.2 k/uL (0-0.7); Eosinophils % (A) 4 %; HCT 42.5 % (39.0-53.0); HGB 14.3 gm/dL (13.0-17.5); Lymphocytes # (A) 1.4 k/uL (1.0-4.8); Lymphocytes % (A) 20 %; MCH 29.8 pg (25.0-35.0); MCHC 33.7 g/dL (31.0-37.0); MCV 88.3 fL (80.0-100.0); Mean Platelet Volume 7.6; Monocytes # (A) 0.4 k/uL (0-1.0); Monocytes % (A) 6 %; Neutrophils # (A) 4.8 k/uL (1.3-7.7); Neutrophils % (A) 69 %; Platelet Count 311 k/uL (150-450); RBC 4.82 m/uL (4.30-5.90); WBC 6.9 k/uL (3.8-10.6)
--- NOTE | 2020-04-24 14:53 | P.PN ---
Subjective 54-year-old male admitted for right the partial colectomy. Patient is clinically doing well tolerating diet well. Patient is being discharged today and there are no major medical issues. Patient is medically stable to be discharged. Constitutional: Denied any fatigue denied any fever. Cardio vascular: denied any chest pain, palpitations Gastrointestinal denied any nausea vomiting Pulmonary: Denied any shortness of breath cough Neurologic denied any new focal deficits All inpatient medications were reviewed and appropriate changes in these medications as dictated in the interval history and assessment and plan. Objective - Vital Signs Vital signs: Vital Signs Temp 98.3 F 04/24/20 07:00 Pulse 70 04/24/20 07:00 Resp 16 04/24/20 07:00 BP 156/90 04/24/20 07:00 Pulse Ox 95 04/24/20 07:00 Intake & Output 04/23/20 04/24/20 04/24/20 18:59 06:59 18:59 Intake Total 940 520 Output Total 3000 Balance -2059 520 Intake: IV 400 D5-0.45% NaCl with KCl 400 20Meq/l 1,000 ml @ 50 mls /hr IV .Q20H [facility] Rx#: [id number] Oral 940 120 Output: Urine 3000 Uretheral ([place]) 3000 Other: Voiding Method Indwelling Catheter # Voids 3 - Exam PHYSICAL EXAMINATION: GENERAL: The patient is alert and oriented x3, not in any acute distress. Well developed, well nourished. HEENT: Pupils are round and equally reacting to light. EOMI. No scleral icterus. No conjunctival pallor. Normocephalic, atraumatic. No pharyngeal erythema. No thyromegaly. CARDIOVASCULAR: S1 and S2 present. No murmurs, rubs, or gallops. PULMONARY: Chest is clear to auscultation, no wheezing or crackles. ABDOMEN: Soft, nontender, nondistended, normoactive bowel sounds. No palpable organomegaly. Abdominal binder in place MUSCULOSKELETAL: No joint swelling or deformity. EXTREMITIES: No cyanosis, clubbing, or pedal edema. NEUROLOGICAL: Gross neurological examination did not reveal any focal deficits. SKIN: No rashes. - Labs CBC & Chem 7: 04/24/20 10:44 04/21/20 16:36 Assessment and Plan Plan: -Status post right colectomy and partial omentectomy with repair of incarcerated hernia patient is doing well postoperatively is being discharged today -Leukocytosis reactive in nature on admission resolved at this time -Obesity Discharge medications were reviewed and patient is medically stable to be discharged
== END 2020-04-24 13:53 | disposition home or self-care (01) | DRG 330 ==
LOC: 2ORMAIN 05:31 → 4SSUR 12:28
PROVIDERS: ADMIT Surgery; ATTEND Surgery
PROC: 0DBF0ZZ Excision of Right Large Intestine, Open Approach (ICD-10-PCS; principal; 2020-04-20 07:00)
PROC: 0WQF0ZZ Repair Abdominal Wall, Open Approach (ICD-10-PCS; principal; 2020-04-20 07:00)
PROC: 0DBU0ZZ Excision of Omentum, Open Approach (ICD-10-PCS; principal; 2020-04-20 07:00)
DX: K57.32 Diverticulitis of large intestine without perforation or abscess without bleeding (principal); E87.1 Hypo-osmolality and hyponatremia; K43.6 Other and unspecified ventral hernia with obstruction, without gangrene; I10 Essential (primary) hypertension; D72.829 Elevated white blood cell count, unspecified; E66.9 Obesity, unspecified; Z68.25 Body mass index [BMI] 25.0-25.9, adult; Z87.891 Personal history of nicotine dependence; Z90.49 Acquired absence of other specified parts of digestive tract; Z88.0 Allergy status to penicillin; Z82.49 Family history of ischemic heart disease and other diseases of the circulatory system
CPT/HCPCS: 80048; 80053; 81001; 85025; 86850; 86900; 86901; 88305; 88307; 94640

== ENCOUNTER 2021-01-02 14:20 | Emergency (ER) | payer BC ==
[2021-01-02 14:37] VITALS: BP 126/81; PULSE 90; RESP 18; TEMP 99
--- NOTE | 2021-01-02 15:24 | ED ---
SOB HPI - General Chief Complaint: Shortness of Breath Stated Complaint: Cough, Fever, SOB Time Seen by Provider: 01/02/21 15:14 Source: patient, RN notes reviewed Mode of arrival: ambulatory Limitations: no limitations - History of Present Illness Initial Comments: Patient is a 55-year-old male that presents to the emergency department complaining of increased shortness of breath over the last 24 hours. He notes that he does have several family members that tested positive for Covid, and he would like to get tested as well. She did note that he has a dry cough that is nonproductive of any purulent or mucus discharge. He states that the shortness of breath is more on exertion than anything. He denied any chest pain headache nausea vomiting diarrhea constipation fever fatigue chills. - Related Data Previous Rx's Medication Instructions Recorded Docusate [Colace] 100 mg PO BID #20 capsule 04/24/20 HYDROcodone/APAP 5-325MG [[place] 1 tab PO Q6HR PRN #10 tab 04/24/20 5-325] Allergies Allergy/AdvReac Type Severity Reaction Status Date / Time Penicillins Allergy Swelling Verified 01/02/21 14:37 Review of Systems ROS Statement: Those systems with pertinent positive or pertinent negative responses have been documented in the HPI. ROS Other: All systems not noted in ROS Statement are negative. Past Medical History Past Medical History: No Reported History Additional Past Medical History / Comment(s): diverticulitis with abscess History of Any Multi-Drug Resistant Organisms: None Reported Past Surgical History: Cholecystectomy Additional Past Surgical History / Comment(s): vasectomy Past Anesthesia/Blood Transfusion Reactions: Previous Problems w/ Anesthesia Additional Past Anesthesia/Blood Transfusion Reaction / Comment(s): difficult intubation with cholecystectomy intubated through nose Past Psychological History: No Psychological Hx Reported Smoking Status: Former smoker Past Alcohol Use History: Occasional Past Drug Use History: None Reported - Past Family History Father Family Medical History: Hypertension Additional Family Medical History / Comment(s): heart issues with blood vessels. Mother Family Medical History: No Reported History Additional Family Medical History / Comment(s): colitis General Exam Limitations: no limitations General appearance: alert, in no apparent distress Head exam: Present: atraumatic, normocephalic, normal inspection Eye exam: Present: normal appearance, PERRL, EOMI. Absent: scleral icterus, conjunctival injection, periorbital swelling ENT exam: Present: normal exam, mucous membranes moist Neck exam: Present: normal inspection. Absent: tenderness, meningismus, lymphadenopathy Respiratory exam: Present: rhonchi (Mild in the right middle lobe.). Absent: respiratory distress, wheezes, rales, stridor Cardiovascular Exam: Present: regular rate, normal rhythm, normal heart sounds. Absent: systolic murmur, diastolic murmur, rubs, gallop, clicks GI/Abdominal exam: Present: soft, normal bowel sounds. Absent: distended, tenderness, guarding, rebound, rigid Extremities exam: Present: normal inspection, full ROM, normal capillary refill. Absent: tenderness, pedal edema, joint swelling, calf tenderness Neurological exam: Present: alert, oriented X3, CN II-XII intact Psychiatric exam: Present: normal affect, normal mood Course Vital Signs 01/02/21 14:34 Temperature 99 F Pulse Rate 90 Respiratory 18 Rate Blood Pressure 126/81 O2 Sat by Pulse 96 Oximetry Medical Decision Making - Medical Decision Making 55-year-old male complaining of shortness of breath, several family members tested positive for covert. Chest x-ray, basic labs, Covid test ordered. Chest x-ray no acute card up on her process. Covid test positive. Case discussed with Dr. Mccoy, decided patient discharged home in quarantine with rest the family. - Lab Data Result diagrams: 01/02/21 15:58 01/02/21 15:58 Lab Results 01/02/21 01/02/21 01/02/21 Range/Units 15:46 15:58 15:58 WBC 4.8 (3.8-10.6) k/uL RBC 5.58 (4.30-5.90) m/uL Hgb 16.6 (13.0-17.5) gm/dL Hct 48.5 (39.0-53.0) % MCV 87.0 (80.0-100.0) fL MCH 29.7 (25.0-35.0) pg MCHC 34.1 (31.0-37.0) g/dL RDW 13.2 (11.5-15.5) % Plt Count 196 (150-450) k/uL MPV 7.0 Neutrophils % 65 % Lymphocytes % 22 % Monocytes % 9 % Eosinophils % 1 % Basophils % 1 % Neutrophils # 3.2 (1.3-7.7) k/uL Lymphocytes # 1.1 (1.0-4.8) k/uL Monocytes # 0.4 (0-1.0) k/uL Eosinophils # 0.1 (0-0.7) k/uL Basophils # 0.1 (0-0.2) k/uL Sodium (137-145) mmol/L Potassium (3.5-5.1) mmol/L Chloride (98-107) mmol/L Carbon Dioxide (22-30) mmol/L Anion Gap mmol/L BUN (9-20) mg/dL Creatinine (0.66-1.25) mg/dL Est GFR (CKD-EPI)AfAm (>60 ml/min/1.73 sqM) Est GFR (CKD-EPI)NonAf (>60 ml/min/1.73 sqM) Glucose (74-99) mg/dL Calcium (8.4-10.2) mg/dL Total Bilirubin (0.2-1.3) mg/dL AST (17-59) U/L ALT (4-49) U/L Alkaline Phosphatase (38-126) U/L Total Protein (6.3-8.2) g/dL Albumin (3.5-5.0) g/dL Urine Color Yellow Urine Appearance Clear (Clear) Urine pH 5.5 (5.0-8.0) Ur Specific [place] 1.034 (1.001-1.035) Urine Protein 1+ H (Negative) Urine Glucose (UA) Negative (Negative) Urine Ketones Negative (Negative) Urine Blood Negative (Negative) Urine Nitrite Negative (Negative) Urine Bilirubin Negative (Negative) Urine Urobilinogen <2.0 (<2.0) mg/dL Ur Leukocyte Esterase Negative (Negative) Urine RBC 1 (0-5) /hpf Urine WBC 2 (0-5) /hpf Urine Mucus Many H (None) /hpf Coronavirus (PCR) Detected A (Not Detectd) 01/02/21 Range/Units 15:58 WBC (3.8-10.6) k/uL RBC (4.30-5.90) m/uL Hgb (13.0-17.5) gm/dL Hct (39.0-53.0) % MCV (80.0-100.0) fL MCH (25.0-35.0) pg MCHC (31.0-37.0) g/dL RDW (11.5-15.5) % Plt Count (150-450) k/uL MPV Neutrophils % % Lymphocytes % % Monocytes % % Eosinophils % % Basophils % % Neutrophils # (1.3-7.7) k/uL Lymphocytes # (1.0-4.8) k/uL Monocytes # (0-1.0) k/uL Eosinophils # (0-0.7) k/uL Basophils # (0-0.2) k/uL Sodium 139 (137-145) mmol/L Potassium 3.8 (3.5-5.1) mmol/L Chloride 101 (98-107) mmol/L Carbon Dioxide 29 (22-30) mmol/L Anion Gap 9 mmol/L BUN 14 (9-20) mg/dL Creatinine 1.21 (0.66-1.25) mg/dL Est GFR (CKD-EPI)AfAm 79 (>60 ml/min/1.73 sqM) Est GFR (CKD-EPI)NonAf 68 (>60 ml/min/1.73 sqM) Glucose 109 H (74-99) mg/dL Calcium 9.7 (8.4-10.2) mg/dL Total Bilirubin 0.7 (0.2-1.3) mg/dL AST 25 (17-59) U/L ALT 27 (4-49) U/L Alkaline Phosphatase 53 (38-126) U/L Total Protein 7.4 (6.3-8.2) g/dL Albumin 4.4 (3.5-5.0) g/dL Urine Color Urine Appearance (Clear) Urine pH (5.0-8.0) Ur Specific [place] (1.001-1.035) Urine Protein (Negative) Urine Glucose (UA) (Negative) Urine Ketones (Negative) Urine Blood (Negative) Urine Nitrite (Negative) Urine Bilirubin (Negative) Urine Urobilinogen (<2.0) mg/dL Ur Leukocyte Esterase (Negative) Urine RBC (0-5) /hpf Urine WBC (0-5) /hpf Urine Mucus (None) /hpf Coronavirus (PCR) (Not Detectd) - Radiology Data Radiology results: report reviewed, image reviewed Chest x-ray: No acute cardiopulmonary process. Disposition Clinical Impression: COVID-19, Shortness of breath Disposition: HOME SELF-CARE Condition: Stable Instructions (If sedation given, give patient instructions): Coronavirus Disease 2019 (COVID-19) Additional Instructions: Please return to the Emergency Department if symptoms worsen or any other concerns. Follow-up with primary care in 5-7 days. Conservative management with rest, increase oral fluid intake, anti- inflammatories as needed for conservative management. If shortness of breath, dyspnea increases or get records please return to the ER. Is patient prescribed a controlled substance at d/c from ED?: No Referrals: Zenia Zapien MD [Primary Care Provider] - 1-2 days Time of Disposition: 16:31
--- NOTE | 2021-01-02 15:55 | XR ---
EXAMINATION TYPE: XR chest 2V DATE OF EXAM: 01/02/2021 COMPARISON: 11/23/2017 HISTORY: 55-year-old male with shortness of breath, difficulty breathing TECHNIQUE: PA and lateral views FINDINGS: Heart normal size. Aorta and pulmonary vasculature within normal limits. Mild biapical pleural-parenc hymal scarring. No consolidation or pleural effusion. IMPRESSION: No acute cardiopulmonary process.
[2021-01-02 16:09] LABS: Appearance,Urine Clear (Clear); Bilirubin,Urine Negative (Negative); Blood,Urine Negative (Negative); Color,Urine Yellow; Glucose,Urine (UA) Negative (Negative); Ketones,Urine Negative (Negative); Leukocyte Esterase,Urine Negative (Negative); Mucus,Urine Many /hpf; Nitrite,Urine Negative (Negative); PH, Urine 5.5 (5.0-8.0); Protein,Urine 1+ (Negative); RBC,Urine 1 /hpf (0-5); Specific Gravity,Urine 1.034 (1.001-1.035); Urobilinogen,Urine <2.0 mg/dL (<2.0); WBC,Urine 2 /hpf (0-5)
[2021-01-02 16:16] LABS: Albumin 4.4 g/dL (3.5-5.0); Calcium 9.7 mg/dL (8.4-10.2); Potassium 3.8 mmol/L (3.5-5.1); Total Bilirubin 0.7 mg/dL (0.2-1.3); Total Protein 7.4 g/dL (6.3-8.2)
[2021-01-02 16:17] LABS: Basophils # (A) 0.1 k/uL (0-0.2); Basophils % (A) 1 %; Eosinophils # (A) 0.1 k/uL (0-0.7); Eosinophils % (A) 1 %; HCT 48.5 % (39.0-53.0); HGB 16.6 gm/dL (13.0-17.5); Lymphocytes # (A) 1.1 k/uL (1.0-4.8); Lymphocytes % (A) 22 %; MCH 29.7 pg (25.0-35.0); MCHC 34.1 g/dL (31.0-37.0); Monocytes # (A) 0.4 k/uL (0-1.0); Monocytes % (A) 9 %; Neutrophils # (A) 3.2 k/uL (1.3-7.7); Neutrophils % (A) 65 %; Platelet Count 196 k/uL (150-450); RBC 5.58 m/uL (4.30-5.90); RDW 13.2 % (11.5-15.5); WBC 4.8 k/uL (3.8-10.6)
== END 2021-01-02 16:55 | disposition home or self-care (01) ==
LOC: EC 14:20
DX: U07.1 COVID-19 (principal); Z88.0 Allergy status to penicillin; Z87.891 Personal history of nicotine dependence
CPT/HCPCS: 36415; 71046; 80053; 81001; 85025; 87635; 99285

== ENCOUNTER 2021-01-06 16:24 | Emergency (ER) | payer BC ==
[2021-01-06] MEDS ORDERED: SODIUM CHLORIDE 0.9% 2,000 ML IV ONE (17:15)
[2021-01-06 17:24] VITALS: RESP 18
--- NOTE | 2021-01-06 17:33 | ED ---
SOB HPI - General Chief Complaint: Shortness of Breath Stated Complaint: COVID+, worsening symptoms Source: patient Mode of arrival: ambulatory Limitations: no limitations - History of Present Illness Initial Comments: Ricco is a previously healthy 55-year-old male who was diagnosed with COVID 5 days ago. Patient reports that since that time he's had worsening generalized malaise, fatigue, body aches. He has shortness of breath with exertion but no chest pain or palpitations. No lightheadedness or passing out. He's been taking 500 mg of Tylenol every 4-6 hours for fever with minimal improvement. Patient reports today he just feels like he is getting worse and dehydrated and wanted to be reevaluated. - Related Data Previous Rx's Medication Instructions Recorded Docusate [Colace] 100 mg PO BID #20 capsule 04/24/20 HYDROcodone/APAP 5-325MG [[place] 1 tab PO Q6HR PRN #10 tab 04/24/20 5-325] Allergies Allergy/AdvReac Type Severity Reaction Status Date / Time Penicillins Allergy Swelling Verified 01/06/21 16:46 Review of Systems ROS Statement: Those systems with pertinent positive or pertinent negative responses have been documented in the HPI. ROS Other: All systems not noted in ROS Statement are negative. Past Medical History Past Medical History: No Reported History Additional Past Medical History / Comment(s): diverticulitis with abscess History of Any Multi-Drug Resistant Organisms: None Reported Past Surgical History: Cholecystectomy Additional Past Surgical History / Comment(s): vasectomy Past Anesthesia/Blood Transfusion Reactions: Previous Problems w/ Anesthesia Additional Past Anesthesia/Blood Transfusion Reaction / Comment(s): difficult intubation with cholecystectomy intubated through nose Past Psychological History: No Psychological Hx Reported Smoking Status: Former smoker Past Alcohol Use History: Occasional Past Drug Use History: None Reported - Past Family History Father Family Medical History: Hypertension Additional Family Medical History / Comment(s): heart issues with blood vessels. Mother Family Medical History: No Reported History Additional Family Medical History / Comment(s): colitis General Exam - General Exam Comments Initial Comments: Physical Exam GENERAL: Ill-appearing gentleman HENT: Normocephalic, Atraumatic. EYES: PERRL, EOMI PULMONARY: Unlabored respirations. No audible rales rhonchi or wheezing was noted. CARDIOVASCULAR: There is a regular rate and rhythm without any murmurs gallops or rubs. ABDOMEN: Soft and nontender with normal bowel sounds. SKIN: Skin is clear with no lesions or rashes and otherwise unremarkable. : Deferred NEUROLOGIC: Patient is alert and oriented x3. Moving all extremities spontaneously MUSCULOSKELETAL: Normal extremities with adequate strength and full range of motion. No lower extremity swelling or edema. No calf tenderness. PSYCHIATRIC: Normal psychiatric evaluation. Limitations: no limitations Course Vital Signs 01/06/21 01/06/21 01/06/21 16:43 17:22 17:40 Temperature 102.2 F H 102.2 F H Pulse Rate 96 85 Respiratory 20 18 18 Rate Blood Pressure 129/86 123/85 O2 Sat by Pulse 95 94 L Oximetry 01/06/21 01/06/21 01/06/21 18:13 19:31 20:01 Temperature 101.2 F H 100.6 F H 100.6 F H Pulse Rate 80 74 85 Respiratory 18 18 18 Rate Blood Pressure 130/76 142/86 O2 Sat by Pulse 99 96 94 L Oximetry Medical Decision Making - Medical Decision Making The patient was seen and evaluated history is obtained from the patient and review of medical record 55-year-old male with no comorbidities not a candidate for monoclonal antibodies Repeat labs were obtained patient received 2 L IV fluid bolus and Motrin for his fever Chest x-ray shows bilateral patchy infiltrate consistent with COVID pneumonia Patient will be treated with Decadron, other supportive care measures and return parameters were discussed patient discharged home in stable condition. - Lab Data Result diagrams: 01/06/21 17:24 01/06/21 17:24 Lab Results 01/06/21 01/06/21 Range/Units 17:24 17:24 WBC 4.7 (3.8-10.6) k/uL RBC 5.36 (4.30-5.90) m/uL Hgb 15.8 (13.0-17.5) gm/dL Hct 46.2 (39.0-53.0) % MCV 86.2 (80.0-100.0) fL MCH 29.5 (25.0-35.0) pg MCHC 34.3 (31.0-37.0) g/dL RDW 13.1 (11.5-15.5) % Plt Count 141 L (150-450) k/uL MPV 7.8 Neutrophils % 76 % Lymphocytes % 16 % Monocytes % 5 % Eosinophils % 1 % Basophils % 1 % Neutrophils # 3.6 (1.3-7.7) k/uL Lymphocytes # 0.8 L (1.0-4.8) k/uL Monocytes # 0.2 (0-1.0) k/uL Eosinophils # 0.1 (0-0.7) k/uL Basophils # 0.0 (0-0.2) k/uL Sodium 135 L (137-145) mmol/L Potassium 3.8 (3.5-5.1) mmol/L Chloride 101 (98-107) mmol/L Carbon Dioxide 25 (22-30) mmol/L Anion Gap 9 mmol/L BUN 15 (9-20) mg/dL Creatinine 0.94 (0.66-1.25) mg/dL Est GFR (CKD-EPI)AfAm >90 (>60 ml/min/1.73 sqM) Est GFR (CKD-EPI)NonAf >90 (>60 ml/min/1.73 sqM) Glucose 129 H (74-99) mg/dL Calcium 8.7 (8.4-10.2) mg/dL Magnesium 2.1 (1.6-2.3) mg/dL Total Bilirubin 0.6 (0.2-1.3) mg/dL AST 35 (17-59) U/L ALT 31 (4-49) U/L Alkaline Phosphatase 46 (38-126) U/L Total Protein 6.7 (6.3-8.2) g/dL Albumin 3.9 (3.5-5.0) g/dL Disposition Clinical Impression: COVID-19 Disposition: HOME SELF-CARE Condition: Stable Is patient prescribed a controlled substance at d/c from ED?: No Referrals: Zenia Zapien MD [Primary Care Provider] - 1-2 days
[2021-01-06 17:35] LABS: Basophils % (A) 1 %; Eosinophils # (A) 0.1 k/uL (0-0.7); Eosinophils % (A) 1 %; HCT 46.2 % (39.0-53.0); HGB 15.8 gm/dL (13.0-17.5); Lymphocytes # (A) 0.8 k/uL (1.0-4.8); Lymphocytes % (A) 16 %; MCH 29.5 pg (25.0-35.0); MCHC 34.3 g/dL (31.0-37.0); MCV 86.2 fL (80.0-100.0); Mean Platelet Volume 7.8; Monocytes # (A) 0.2 k/uL (0-1.0); Monocytes % (A) 5 %; Neutrophils # (A) 3.6 k/uL (1.3-7.7); Neutrophils % (A) 76 %; Platelet Count 141 k/uL (150-450); RBC 5.36 m/uL (4.30-5.90); RDW 13.1 % (11.5-15.5); WBC 4.7 k/uL (3.8-10.6)
--- NOTE | 2021-01-06 17:40 | XR ---
EXAMINATION TYPE: XR chest 1V portable DATE OF EXAM: 01/06/2021 COMPARISON: 01/02/2021 HISTORY: Pneumonia. Cough. TECHNIQUE: Single view FINDINGS: There is some coarse interstitial infiltrate in the mid and lower lung arenas. There is pro bably some COPD. Heart size is normal. There is some coalescent infiltrate in the medial right lower lobe. There are no hilar masses. Mediastinum is normal. Bony thorax appears intact. IMPRESSION: Bilateral predominantly interstitial pneumonia is a change compared to recent exam.
[2021-01-06 17:45] LABS: ALT 31 U/L (4-49); AST 35 U/L (17-59); African American GFR (CKD) >90 (>60 ml/min/1.73 sqM); Albumin 3.9 g/dL (3.5-5.0); Alkaline Phosphatase 46 U/L (38-126); Anion Gap 9 mmol/L; Blood Urea Nitrogen 15 mg/dL (9-20); Calcium 8.7 mg/dL (8.4-10.2); Carbon Dioxide 25 mmol/L (22-30); Chloride 101 mmol/L (98-107); Glucose 129 mg/dL (74-99); Magnesium 2.1 mg/dL (1.6-2.3); Non-African American GFR(CKD) >90 (>60 ml/min/1.73 sqM); Potassium 3.8 mmol/L (3.5-5.1); Sodium 135 mmol/L (137-145); Total Bilirubin 0.6 mg/dL (0.2-1.3); Total Protein 6.7 g/dL (6.3-8.2)
[2021-01-06] MEDS ORDERED: IBUPROFEN 600 MG TAB PO STA (18:36)
[2021-01-06] MEDS ORDERED: dexAMETHasone 2 MG TAB PO STA (18:39)
[2021-01-06 19:39] VITALS: TEMP 100.6
[2021-01-06 20:02] VITALS: BP 142/86; PULSE 85
== END 2021-01-06 20:02 | disposition home or self-care (01) ==
LOC: EC 16:24
DX: U07.1 COVID-19 (principal); Z88.0 Allergy status to penicillin; Z87.891 Personal history of nicotine dependence; Z90.49 Acquired absence of other specified parts of digestive tract
CPT/HCPCS: 36415; 80053; 83735; 85025; 71045; 99285; 96360; 96361; J8540

== ENCOUNTER 2021-01-12 13:02 | Inpatient (IN) | payer BC ==
[2021-01-12 13:34] LABS: Basophils % (A) 0 %; Eosinophils % (A) 0 %; HCT 40.7 % (39.0-53.0); HGB 14.1 gm/dL (13.0-17.5); Lymphocytes # (A) 0.5 k/uL (1.0-4.8); Lymphocytes % (A) 9 %; MCH 29.7 pg (25.0-35.0); MCHC 34.8 g/dL (31.0-37.0); MCV 85.4 fL (80.0-100.0); Mean Platelet Volume 7.3; Monocytes # (A) 0.3 k/uL (0-1.0); Monocytes % (A) 6 %; Neutrophils # (A) 4.9 k/uL (1.3-7.7); Neutrophils % (A) 83 %; RBC 4.76 m/uL (4.30-5.90); RDW 12.8 % (11.5-15.5); WBC 5.9 k/uL (3.8-10.6)
[2021-01-12] MEDS ORDERED: DEXAMETHASONE SOD PHOSPHATE 10 MG/ML 1 ML VIAL IV STA (13:37)
[2021-01-12] MEDS ORDERED: SODIUM CHLORIDE 0.9% 500 ML 500 ML IV ONE (13:37)
[2021-01-12 13:38] LABS: Platelet Count 331 k/uL (150-450)
[2021-01-12] MEDS ORDERED: ACETAMINOPHEN TAB 500 MG TAB PO STA (13:39)
--- NOTE | 2021-01-12 13:39 | ED ---
General Adult HPI - General Chief complaint: Shortness of Breath Stated complaint: +COVID,SOB Time Seen by Provider: 01/12/21 13:16 Source: patient, EMS, RN notes reviewed, old records reviewed Mode of arrival: EMS Limitations: no limitations - History of Present Illness Initial comments: 55-year-old male presenting for evaluation of increased cough and dyspnea. Patient was diagnosed with coronavirus approximately 11 days ago. He's had worsening dyspnea. He's had increased generalized weakness and fatigue. He has had persistent fevers. Patient states he is otherwise healthy, no chronic medical conditions. He's had no significant vomiting or diarrhea. - Related Data Previous Rx's Medication Instructions Recorded Docusate [Colace] 100 mg PO BID #20 capsule 04/24/20 HYDROcodone/APAP 5-325MG [[place] 1 tab PO Q6HR PRN #10 tab 04/24/20 5-325] Allergies Allergy/AdvReac Type Severity Reaction Status Date / Time Penicillins Allergy Swelling Verified 01/06/21 16:46 Review of Systems ROS Statement: Those systems with pertinent positive or pertinent negative responses have been documented in the HPI. ROS Other: All systems not noted in ROS Statement are negative. Past Medical History Past Medical History: No Reported History Additional Past Medical History / Comment(s): diverticulitis with abscess History of Any Multi-Drug Resistant Organisms: None Reported Past Surgical History: Cholecystectomy Additional Past Surgical History / Comment(s): vasectomy Past Anesthesia/Blood Transfusion Reactions: Previous Problems w/ Anesthesia Additional Past Anesthesia/Blood Transfusion Reaction / Comment(s): difficult intubation with cholecystectomy intubated through nose Past Psychological History: No Psychological Hx Reported Smoking Status: Former smoker Past Alcohol Use History: Occasional Past Drug Use History: None Reported - Past Family History Father Family Medical History: Hypertension Additional Family Medical History / Comment(s): heart issues with blood vessels. Mother Family Medical History: No Reported History Additional Family Medical History / Comment(s): colitis General Exam Limitations: no limitations General appearance: alert, in distress Head exam: Present: atraumatic, normocephalic Eye exam: Present: normal appearance, PERRL ENT exam: Present: mucous membranes dry Neck exam: Present: normal inspection. Absent: tenderness, meningismus Respiratory exam: Present: respiratory distress, rales, rhonchi, accessory muscle use, decreased breath sounds Cardiovascular Exam: Present: regular rate, normal rhythm GI/Abdominal exam: Present: soft, distended Extremities exam: Present: normal inspection, normal capillary refill. Absent: pedal edema, calf tenderness Neurological exam: Present: alert, oriented X3, CN II-XII intact. Absent: motor sensory deficit Psychiatric exam: Present: normal affect, normal mood Skin exam: Present: warm, dry, intact. Absent: cyanosis, diaphoretic Course Vital Signs 01/12/21 01/12/21 13:03 14:52 Temperature 102.1 F H 99.5 F Pulse Rate 94 91 Respiratory 20 18 Rate Blood Pressure 162/95 150/95 O2 Sat by Pulse 93 L 94 L Oximetry EKG Findings - EKG Comments: EKG Findings:: Normal sinus rhythm, left atrial enlargement, rate of 91, VA interval 186, QRS duration 92, QTC 437, no ST segment elevation. Medical Decision Making - Medical Decision Making Patient with increased cough and dyspnea, history of coronavirus, x-ray showing bilateral pneumonia. Patient given Decadron, laboratory studies will be obtained, results pending. Patient has been admitted with pulmonology on consult. Case discussed with Dr. Treadwell. - Lab Data Result diagrams: 01/12/21 13:16 01/12/21 13:16 Lab Results 01/12/21 01/12/21 01/12/21 Range/Units 13:16 13:16 13:16 WBC 5.9 (3.8-10.6) k/uL RBC 4.76 (4.30-5.90) m/uL Hgb 14.1 (13.0-17.5) gm/dL Hct 40.7 (39.0-53.0) % MCV 85.4 (80.0-100.0) fL MCH 29.7 (25.0-35.0) pg MCHC 34.8 (31.0-37.0) g/dL RDW 12.8 (11.5-15.5) % Plt Count 331 D (150-450) k/uL MPV 7.3 Neutrophils % 83 % Lymphocytes % 9 % Monocytes % 6 % Eosinophils % 0 % Basophils % 0 % Neutrophils # 4.9 (1.3-7.7) k/uL Lymphocytes # 0.5 L (1.0-4.8) k/uL Monocytes # 0.3 (0-1.0) k/uL Eosinophils # 0.0 (0-0.7) k/uL Basophils # 0.0 (0-0.2) k/uL PT 10.7 (9.0-12.0) sec INR 1.0 (<1.2) APTT 22.9 (22.0-30.0) sec D-Dimer 0.52 (<0.60) mg/L FEU Sodium 133 L (137-145) mmol/L Potassium 3.4 L (3.5-5.1) mmol/L Chloride 98 (98-107) mmol/L Carbon Dioxide 26 (22-30) mmol/L Anion Gap 9 mmol/L BUN 15 (9-20) mg/dL Creatinine 0.85 (0.66-1.25) mg/dL Est GFR (CKD-EPI)AfAm >90 (>60 ml/min/1.73 sqM) Est GFR (CKD-EPI)NonAf >90 (>60 ml/min/1.73 sqM) Glucose 141 H (74-99) mg/dL Plasma Lactic Acid Ronnie (0.7-2.0) mmol/L Calcium 8.4 (8.4-10.2) mg/dL Magnesium 2.3 (1.6-2.3) mg/dL Total Bilirubin 1.0 (0.2-1.3) mg/dL AST 37 (17-59) U/L ALT 49 (4-49) U/L Alkaline Phosphatase 91 (38-126) U/L Lactate Dehydrogenase 771 H (313-618) U/L C-Reactive Protein 52.5 H (<10.0) mg/L Total Protein 6.2 L (6.3-8.2) g/dL Albumin 3.3 L (3.5-5.0) g/dL 01/12/21 Range/Units 13:16 WBC (3.8-10.6) k/uL RBC (4.30-5.90) m/uL Hgb (13.0-17.5) gm/dL Hct (39.0-53.0) % MCV (80.0-100.0) fL MCH (25.0-35.0) pg MCHC (31.0-37.0) g/dL RDW (11.5-15.5) % Plt Count (150-450) k/uL MPV Neutrophils % % Lymphocytes % % Monocytes % % Eosinophils % % Basophils % % Neutrophils # (1.3-7.7) k/uL Lymphocytes # (1.0-4.8) k/uL Monocytes # (0-1.0) k/uL Eosinophils # (0-0.7) k/uL Basophils # (0-0.2) k/uL PT (9.0-12.0) sec INR (<1.2) APTT (22.0-30.0) sec D-Dimer (<0.60) mg/L FEU Sodium (137-145) mmol/L Potassium (3.5-5.1) mmol/L Chloride (98-107) mmol/L Carbon Dioxide (22-30) mmol/L Anion Gap mmol/L BUN (9-20) mg/dL Creatinine (0.66-1.25) mg/dL Est GFR (CKD-EPI)AfAm (>60 ml/min/1.73 sqM) Est GFR (CKD-EPI)NonAf (>60 ml/min/1.73 sqM) Glucose (74-99) mg/dL Plasma Lactic Acid Ronnie 2.3 H* (0.7-2.0) mmol/L Calcium (8.4-10.2) mg/dL Magnesium (1.6-2.3) mg/dL Total Bilirubin (0.2-1.3) mg/dL AST (17-59) U/L ALT (4-49) U/L Alkaline Phosphatase (38-126) U/L Lactate Dehydrogenase (313-618) U/L C-Reactive Protein (<10.0) mg/L Total Protein (6.3-8.2) g/dL Albumin (3.5-5.0) g/dL Disposition Clinical Impression: Pneumonia due to COVID-19 virus Disposition: ADMITTED IP TO THIS HOSP Condition: Stable Is patient prescribed a controlled substance at d/c from ED?: No Referrals: Zenia Zapien MD [Primary Care Provider] - 1-2 days Decision to Admit Reason: Admit from EC Decision Date: 01/12/21 Decision Time: 15:30
[2021-01-12 13:47] LABS: ALT 49 U/L (4-49); AST 37 U/L (17-59); African American GFR (CKD) >90 (>60 ml/min/1.73 sqM); Albumin 3.3 g/dL (3.5-5.0); Alkaline Phosphatase 91 U/L (38-126); Anion Gap 9 mmol/L; Blood Urea Nitrogen 15 mg/dL (9-20); C Reactive Protein 52.5 mg/L (<10.0); Calcium 8.4 mg/dL (8.4-10.2); Carbon Dioxide 26 mmol/L (22-30); Chloride 98 mmol/L (98-107); Glucose 141 mg/dL (74-99); LDH 771 U/L (313-618); Magnesium 2.3 mg/dL (1.6-2.3); Non-African American GFR(CKD) >90 (>60 ml/min/1.73 sqM); Potassium 3.4 mmol/L (3.5-5.1); Sodium 133 mmol/L (137-145); Total Protein 6.2 g/dL (6.3-8.2)
[2021-01-12 13:48] LABS: D-Dimer 0.52 mg/L FEU (<0.60); Partial Thromboplastin Time 22.9 sec (22.0-30.0); Prothrombin Time 10.7 sec (9.0-12.0)
--- NOTE | 2021-01-12 14:04 | XR ---
EXAMINATION TYPE: XR chest 1V portable DATE OF EXAM: 01/12/2021 COMPARISON: 01/06/2021 INDICATION: Cough short of breath TECHNIQUE: Single frontal view of the chest is obtained. FINDINGS: The heart size is normal. The pulmonary vasculature is normal. Patchy nonspecific infiltrates are present bilaterally which can be compatible with atypical pneumoni a in the proper clinical setting. Findings worsened over the interval. IMPRESSION: 1. Worsening bilateral patchy subsegmental infiltrates are nonspecific but can be compatible with aty pical pneumonia in the proper clinical setting.
[2021-01-12] MEDS ORDERED: POTASSIUM CHLORIDE ER 20 MEQ TAB.ER PO STA (15:08)
[2021-01-12] MEDS ORDERED: ACETAMINOPHEN TAB 325 MG TAB PO PRN (15:28)
[2021-01-12] MEDS ORDERED: NALOXONE 0.4 MG/ML 1 ML VIAL IV PRN (15:28)
[2021-01-12 17:50] LABS: Ferritin 1255.7 ng/mL (22.0-322.0)
[2021-01-12] MEDS: SODIUM CHLORIDE 0.9% 1,000 ML IV SCH (17:52)
--- NOTE | 2021-01-12 18:12 | P.HPIM ---
History of Present Illness 55-year-old male presenting for evaluation of increased cough and dyspnea. Patient was diagnosed with coronavirus approximately 11 days ago and had cold symptoms for about 2 weeks. He's had worsening dyspnea. He's had increased generalized weakness and fatigue. He has had persistent fevers. Patient states he is otherwise healthy, no chronic medical conditions. He's had no significant vomiting or diarrhea. Patient also complaining of for dehydration lightheadedness and patient does have low sodium and low potassium patient will be started on IV fluids patient does have elevated inflammatory markers although d-dimer is only 0.52 Review of Systems REVIEW OF SYSTEMS: CONSTITUTIONAL: As mentioned in HPI HEENT: No recent visual problems or hearing problems. Denied any sore throat. CARDIOVASCULAR: No chest pain, orthopnea, PND, no palpitations, no syncope. PULMONARY: no hemoptysis. GASTROINTESTINAL: No diarrhea, no nausea, no vomiting, no abdominal pain. NEUROLOGICAL: No headaches, no weakness, no numbness. HEMATOLOGICAL: Denies any bleeding or petechiae. GENITOURINARY: Denies any burning micturition, frequency, or urgency. MUSCULOSKELETAL/RHEUMATOLOGICAL: Denies any joint pain, swelling, or any muscle pain. ENDOCRINE: Denies any polyuria or polydipsia. The rest of the 14-point review of systems is negative. Past Medical History Past Medical History: No Reported History Additional Past Medical History / Comment(s): diverticulitis with abscess History of Any Multi-Drug Resistant Organisms: None Reported Past Surgical History: Cholecystectomy Additional Past Surgical History / Comment(s): vasectomy Past Anesthesia/Blood Transfusion Reactions: Previous Problems w/ Anesthesia Additional Past Anesthesia/Blood Transfusion Reaction / Comment(s): difficult intubation with cholecystectomy intubated through nose Past Psychological History: No Psychological Hx Reported Smoking Status: Former smoker Past Alcohol Use History: Occasional Past Drug Use History: None Reported - Past Family History Father Family Medical History: Hypertension Additional Family Medical History / Comment(s): heart issues with blood vessels. Mother Family Medical History: No Reported History Additional Family Medical History / Comment(s): colitis Medications and Allergies Home Medications Medication Instructions Recorded Confirmed Type Docusate [Colace] 100 mg PO BID #20 capsule 04/24/20 Rx HYDROcodone/APAP 5-325MG [[place] 1 tab PO Q6HR PRN #10 tab 04/24/20 Rx 5-325] Allergies Allergy/AdvReac Type Severity Reaction Status Date / Time Penicillins Allergy Swelling Verified 01/06/21 16:46 Physical Exam Vitals: Vital Signs Temp Pulse Resp BP Pulse Ox 01/12/21 17:53 80 18 155/98 94 L 01/12/21 14:52 99.5 F 91 18 150/95 94 L 01/12/21 13:03 102.1 F H 94 20 162/95 93 L Intake and Output 01/12/21 01/12/21 01/12/21 06:59 14:59 22:59 Other: Weight 90.265 kg PHYSICAL EXAMINATION: GENERAL: The patient is alert and oriented x3, not in any acute distress. Well developed, well nourished. HEENT: Pupils are round and equally reacting to light. EOMI. No scleral icterus. No conjunctival pallor. Normocephalic, atraumatic. No pharyngeal erythema. No thyromegaly. CARDIOVASCULAR: S1 and S2 present. No murmurs, rubs, or gallops. PULMONARY: Chest is clear to auscultation, no wheezing or crackles. ABDOMEN: Soft, nontender, nondistended, normoactive bowel sounds. No palpable organomegaly. MUSCULOSKELETAL: No joint swelling or deformity. EXTREMITIES: No cyanosis, clubbing, or pedal edema. NEUROLOGICAL: Gross neurological examination did not reveal any focal deficits. SKIN: No rashes. Results CBC & Chem 7: 01/12/21 13:16 01/12/21 13:16 Labs: Abnormal Lab Results - Last 24 Hours (Table) 01/12/21 01/12/21 01/12/21 Range/Units 13:16 13:16 13:16 Lymphocytes # 0.5 L (1.0-4.8) k/uL Sodium 133 L (137-145) mmol/L Potassium 3.4 L (3.5-5.1) mmol/L Glucose 141 H (74-99) mg/dL Plasma Lactic Acid Ronnie 2.3 H* (0.7-2.0) mmol/L Ferritin 1255.7 H (22.0-322.0) ng/mL Lactate Dehydrogenase 771 H (313-618) U/L C-Reactive Protein 52.5 H (<10.0) mg/L Total Protein 6.2 L (6.3-8.2) g/dL Albumin 3.3 L (3.5-5.0) g/dL Assessment and Plan Plan: -Hypoxemia secondary to Covid 19 pneumonia. Patient chest x-ray showing significant infiltrate and she much worse compared to his previous ER visits. Patient was started on Decadron, zinc, vitamin C, Pepcid. Patient was started on IV fluids. Monitor inflammatory markers -hypovolemic hyponatremia: IV fluids at 100 mL/h repeat basic metabolic profile tomorrow -Hypokalemia potassium will be replaced -DVT prophylaxis: Lovenox
[2021-01-12] MEDS: FAMOTIDINE 20 MG TAB PO SCH (20:28)
[2021-01-12] MEDS: ASCORBIC ACID 500 MG TAB PO SCH (20:28)
[2021-01-13] MEDS: SODIUM CHLORIDE 0.9% 1,000 ML IV SCH (03:19)
[2021-01-13] MEDS: ENOXAPARIN 40 MG/0.4 ML SYRINGE SQ SCH (09:09)
[2021-01-13] MEDS: ASCORBIC ACID 500 MG TAB PO SCH ×2 (09:09→20:24)
[2021-01-13] MEDS: FAMOTIDINE 20 MG TAB PO SCH ×2 (09:09→20:24)
[2021-01-13] MEDS: ZINC SULFATE 220 MG CAP PO SCH (09:09)
[2021-01-13 09:31] LABS: African American GFR (CKD) 124.9 (60.0-200.0); BUN/Creat Ratio 24.29 Ratio (12.00-20.00); Calcium 8.6 mg/dL (8.7-10.3); Non-African American GFR(CKD) 107.7 (60.0-200.0); Potassium 4.5 mmol/L (3.5-5.5)
--- NOTE | 2021-01-13 11:12 | P.PN ---
Subjective 55-year-old male presenting for evaluation of increased cough and dyspnea. Patient was diagnosed with coronavirus approximately 11 days ago and had cold symptoms for about 2 weeks. He's had worsening dyspnea. He's had increased generalized weakness and fatigue. He has had persistent fevers. Patient states he is otherwise healthy, no chronic medical conditions. He's had no significant vomiting or diarrhea. Patient also complaining of for dehydration lightheadedness and patient does have low sodium and low potassium patient will be started on IV fluids patient does have elevated inflammatory markers although d-dimer is only 0.52 01/13/2021 Patient remains on 2 L of oxygen saturations remain in the low 90s patient is presently on systemic steroids. Constitutional: Denied any fatigue denied any fever. Cardio vascular: denied any chest pain, palpitations Gastrointestinal denied any nausea vomiting Pulmonary: Denied any shortness of breath cough Neurologic denied any new focal deficits All inpatient medications were reviewed and appropriate changes in these medications as dictated in the interval history and assessment and plan. Objective - Vital Signs Vital signs: Vital Signs Temp 98.2 F 01/13/21 09:03 Pulse 77 01/13/21 09:03 Resp 18 01/13/21 09:03 BP 157/89 01/13/21 09:03 Pulse Ox 91 L 01/13/21 09:03 Intake & Output 01/12/21 01/13/21 01/13/21 18:59 06:59 18:59 Intake Total 1200 Balance 1200 Weight 90.265 kg 90.265 kg Intake: Intake, IV Titration 1200 Amount Sodium Chloride 0.9% 1, 1200 000 ml @ 100 mls/hr IV . Q10H [facility] Rx#:[id number] Other: # Voids 2 - Exam PHYSICAL EXAMINATION: GENERAL: The patient is alert and oriented x3, not in any acute distress. Well developed, well nourished. HEENT: Pupils are round and equally reacting to light. EOMI. No scleral icterus. No conjunctival pallor. Normocephalic, atraumatic. No pharyngeal erythema. No thyromegaly. CARDIOVASCULAR: S1 and S2 present. No murmurs, rubs, or gallops. PULMONARY: Chest is clear to auscultation, no wheezing or crackles. ABDOMEN: Soft, nontender, nondistended, normoactive bowel sounds. No palpable organomegaly. MUSCULOSKELETAL: No joint swelling or deformity. EXTREMITIES: No cyanosis, clubbing, or pedal edema. NEUROLOGICAL: Gross neurological examination did not reveal any focal deficits. SKIN: No rashes. - Labs CBC & Chem 7: 01/12/21 13:16 01/13/21 06:36 Labs: Abnormal Lab Results - Last 24 Hours (Table) 01/12/21 01/12/21 01/12/21 Range/Units 13:16 13:16 13:16 Lymphocytes # 0.5 L (1.0-4.8) k/uL Sodium 133 L (137-145) mmol/L Potassium 3.4 L (3.5-5.1) mmol/L BUN/Creatinine Ratio (12.00-20.00) Ratio Glucose 141 H (74-99) mg/dL Plasma Lactic Acid Ronnie 2.3 H* (0.7-2.0) mmol/L Calcium (8.7-10.3) mg/dL Ferritin 1255.7 H (22.0-322.0) ng/mL Lactate Dehydrogenase 771 H (313-618) U/L C-Reactive Protein 52.5 H (<10.0) mg/L Total Protein 6.2 L (6.3-8.2) g/dL Albumin 3.3 L (3.5-5.0) g/dL 01/13/21 Range/Units 06:36 Lymphocytes # (1.0-4.8) k/uL Sodium (137-145) mmol/L Potassium (3.5-5.1) mmol/L BUN/Creatinine Ratio 24.29 H (12.00-20.00) Ratio Glucose 132 H (74-99) mg/dL Plasma Lactic Acid Ronnie (0.7-2.0) mmol/L Calcium 8.6 L (8.7-10.3) mg/dL Ferritin (22.0-322.0) ng/mL Lactate Dehydrogenase (313-618) U/L C-Reactive Protein (<10.0) mg/L Total Protein (6.3-8.2) g/dL Albumin (3.5-5.0) g/dL Assessment and Plan Plan: -Hypoxemia secondary to Covid 19 pneumonia. Patient chest x-ray showing significant infiltrate and she much worse compared to his previous ER visits. Patient is on Decadron, zinc, vitamin C, Pepcid. Patient was started on IV fluids. Monitor inflammatory markers -hypovolemic hyponatremia: IV fluids at 100 mL/h repeat basic metabolic profile tomorrow -Hypokalemia potassium will be replaced -DVT prophylaxis: Lovenox
[2021-01-13] MEDS: dexAMETHasone 2 MG TAB PO SCH (12:17)
[2021-01-13] MEDS: CHOLECALCIFEROL 25 MCG (1000 IU) TABLET PO SCH (12:17)
--- NOTE | 2021-01-13 15:46 | P.CNPUL ---
History of Present Illness Consult date: 01/13/21 Requesting physician: Jeff Harris Reason for consult: dyspnea, cough, hypoxemia, pneumonia, abnormal CXR/CT Chief complaint: Shortness of breath, cough. History of present illness: 55-year-old male, who presents to the emergency department on January 12, at about 1:00 PM, with complaints of increasing shortness of breath. The patient was apparently diagnosed with COVID infection 11 or 12 days ago. At that time, the patient had worsening shortness of breath, generalized weakness and fatigue, intermittent fevers, poor appetite, with multiple aches and soreness. Because of worsening shortness of breath, and just generally not feeling well, he decided to come in to be evaluated. Apparently, the patient reports no significant past medical history, other than for diverticular disease with abscess. Apparently, the patient only takes Colace at home, and [place]. The patient was apparently a former smoker as well. White count 5.9, hemoglobin 14.1, hematocrit 40.7, platelet count 331,000. PT, INR, PTT, and d-dimer are all normal. Sodium 139, potassium 4.5, chlorides 107, CO2 25, anion gap 7, BUN 17 and creatinine was 0.7. Lactic acid was 2.3, and repeat was 1. Ferritin 1256, LDH 771, C-reactive protein 53 and pro-calcitonin level was 0.07. Chest x-ray was done on the , and compared to a chest x-ray that was done on the . The more recent chest x-ray shows bilateral worsening patchy infiltrates. Review of Systems REVIEW OF SYSTEMS: CONSTITUTIONAL: Weakness, fatigue, fever, muscle aches and soreness. NEUROLOGIC: [ Negative.] HEENT: [ Negative.] CARDIAC: [Negative.] PULMONARY: Shortness of breath, chest congestion, cough. GI: Decreased intake of food and fluid. : [Negative.] RHEUMATOLOGIC: [ Negative.] IMMUNOLOGIC: [ Negative.] ENDOCRINE: [Negative. ] DERMATOLOGIC: [Negative.] Past Medical History Past Medical History: No Reported History Additional Past Medical History / Comment(s): diverticulitis with abscess History of Any Multi-Drug Resistant Organisms: None Reported Past Surgical History: Cholecystectomy Additional Past Surgical History / Comment(s): vasectomy Past Anesthesia/Blood Transfusion Reactions: Previous Problems w/ Anesthesia Additional Past Anesthesia/Blood Transfusion Reaction / Comment(s): difficult intubation with cholecystectomy intubated through nose Past Psychological History: No Psychological Hx Reported Smoking Status: Former smoker Past Alcohol Use History: Occasional Additional Past Alcohol Use History / Comment(s): smoked 20-30 years 1 pack or less/day quit Past Drug Use History: None Reported - Past Family History Father Family Medical History: Hypertension Additional Family Medical History / Comment(s): heart issues with blood vessels. Mother Family Medical History: No Reported History Additional Family Medical History / Comment(s): colitis Medications and Allergies Home Medications Medication Instructions Recorded Confirmed Type Acetaminophen Tab [Tylenol] 1,000 mg PO ONCE PRN 01/12/21 01/12/21 History Melatonin (Unknown Strength) 1 tab PO ONCE PRN 01/12/21 01/12/21 History Allergies Allergy/AdvReac Type Severity Reaction Status Date / Time Penicillins Allergy Swelling Verified 01/12/21 19:31 Physical Exam Osteopathic Statement: *. No significant issues noted on an osteopathic structural exam other than those noted in the History and Physical/Consult. Vitals: Vital Signs Temp Pulse Pulse Resp BP BP Pulse Ox 01/13/21 13:46 97.7 F 66 18 145/90 93 L 01/13/21 09:03 98.2 F 77 18 157/89 91 L 01/13/21 05:30 98.4 F 64 16 146/75 92 L 01/13/21 02:35 98.3 F 68 21 173/91 91 L 01/12/21 22:41 98.2 F 72 16 149/81 92 L 01/12/21 20:05 98.4 F 78 17 161/94 93 L 01/12/21 20:00 78 17 01/12/21 17:53 80 18 155/98 94 L 01/12/21 16:00 20 Intake and Output 01/13/21 01/13/21 01/13/21 06:59 14:59 22:59 Intake Total 1200 Balance 1200 Intake: Intake, IV Titration 1200 Amount Sodium Chloride 0.9% 1, 1200 000 ml @ 100 mls/hr IV . Q10H FLACO Rx#:[id number] Other: # Voids 2 No acute distress, oriented 3. Patient sitting up at bedside. Currently on O2 at 2 L. No conversational dyspnea or use of accessory muscles. HEENT examination is grossly unremarkable. Mucous membranes are moist. No oral lesions. Neck supple. Full range of motion. No adenopathy thyromegaly or neck vein distention. Cardiovascular examination reveals regular rhythm rate. S1-S2 normal. No S3 or S4. No discernible murmur noted. Heart rate is 66 bpm. Lungs reveal mild diffuse rhonchi and a few scattered crackles. No wheezes. Breath sounds equal bilaterally. Abdomen soft bowel sounds are heard. No masses or tenderness. Extremities are intact. No cyanosis clubbing or edema. Skin is without rash or lesion. Neurologic examination is brief but nonfocal. Results - Laboratory Findings CBC and BMP: 01/12/21 13:16 01/13/21 06:36 PT/INR, D-dimer PT 10.7 sec (9.0-12.0) 01/12/21 13:16 INR 1.0 (<1.2) 01/12/21 13:16 D-Dimer 0.52 mg/L FEU (<0.60) 01/12/21 13:16 Abnormal lab findings: Abnormal Labs 01/12/21 01/12/21 01/12/21 13:16 13:16 13:16 Lymphocytes # 0.5 L Sodium 133 L Potassium 3.4 L BUN/Creatinine Ratio Glucose 141 H Plasma Lactic Acid Ronnie 2.3 H* Calcium Ferritin 1255.7 H Lactate Dehydrogenase 771 H C-Reactive Protein 52.5 H Total Protein 6.2 L Albumin 3.3 L 01/13/21 06:36 Lymphocytes # Sodium Potassium BUN/Creatinine Ratio 24.29 H Glucose 132 H Plasma Lactic Acid Ronnie Calcium 8.6 L Ferritin Lactate Dehydrogenase C-Reactive Protein Total Protein Albumin - Diagnostic Findings Chest x-ray: image reviewed Assessment and Plan Assessment: Acute mild/moderate hypoxemic respiratory failure secondary to COVID 19 pneumonia. Prior history of tobacco use. History of diverticular disease. Plan: Plan dated 01/13/2021. The patient is only candidate for vitamin C, vitamin D3, zinc, Decadron, and Lovenox. The patient is not a candidate for REM. The patient will be watched very closely. Clinically he looks well, but his chest x-ray has progressed. We will continue to follow make recommendations were appropriate. Prognosis is guarded. Additional recommendations and suggestions are forthcoming. Orders were put in on this patient. Time with Patient: Greater than 30
[2021-01-14] MEDS: ENOXAPARIN 40 MG/0.4 ML SYRINGE SQ SCH (08:31)
[2021-01-14] MEDS: CHOLECALCIFEROL 25 MCG (1000 IU) TABLET PO SCH (08:32)
[2021-01-14] MEDS: FAMOTIDINE 20 MG TAB PO SCH ×2 (08:32→21:11)
[2021-01-14] MEDS: ASCORBIC ACID 500 MG TAB PO SCH ×2 (08:32→21:11)
[2021-01-14] MEDS: dexAMETHasone 2 MG TAB PO SCH (08:32)
[2021-01-14] MEDS: ZINC SULFATE 220 MG CAP PO SCH (08:32)
[2021-01-14] MEDS ORDERED: SODIUM CHLORIDE 0.9% 500 ML 500 ML IV ONE (11:43)
--- NOTE | 2021-01-14 13:18 | P.PN ---
Subjective Progress Note Date: 01/14/21 55-year-old male, who presents to the emergency department on January 12, at about 1:00 PM, with complaints of increasing shortness of breath. The patient was apparently diagnosed with COVID infection 11 or 12 days ago. At that time, the patient had worsening shortness of breath, generalized weakness and fatigue, intermittent fevers, poor appetite, with multiple aches and soreness. Because of worsening shortness of breath, and just generally not feeling well, he decided to come in to be evaluated. Apparently, the patient reports no significant past medical history, other than for diverticular disease with abscess. Apparently, the patient only takes Colace at home, and [place]. The patient was apparently a former smoker as well. White count 5.9, hemoglobin 14.1, hematocrit 40.7, platelet count 331,000. PT, INR, PTT, and d-dimer are all normal. Sodium 139, potassium 4.5, chlorides 107, CO2 25, anion gap 7, BUN 17 and creatinine was 0.7. Lactic acid was 2.3, and repeat was 1. Ferritin 1 256, LDH 771, C-reactive protein 53 and pro-calcitonin level was 0.07. Chest x- ray was done on the , and compared to a chest x-ray that was done on the . The more recent chest x-ray shows bilateral worsening patchy infiltrates. 01/14/2021 the patient is being seen for a follow-up. 55-year-old male patient was hospitalized for Covid 19 related pneumonia secondary hypoxic respiratory fa ilure. The patient is currently on Decadron 6 mg on a daily basis. The patient is doing well. The patient is currently on 2 L about 2 by nasal cannula with a pulse of 75%. The chest x-ray at time of admission showed worsening and patchy bilateral pulmonary infiltrates compatible with a pneumonia. The patient's inflammatory markers showed a d-dimer of 0.52 and the patient is currently on Lovenox for DVT prophylaxis. The patient also has a pro-calcitonin level THAT WAS LOW AT 0.07 WITH AN LDH LEVEL OF 771 AND A CRP OF 52. These are inflammatory markers from yesterday. No levels from today. Chest x-ray from admission was showing bilateral pulmonary infiltrates, peripheral distribution with areas of consolidation. Objective - Vital Signs Vital signs: Vital Signs Temp 97.8 F 01/14/21 10:13 Pulse 72 01/14/21 10:15 Resp 17 01/14/21 10:13 BP 130/83 01/14/21 10:15 Pulse Ox 93 L 01/14/21 10:15 Intake & Output 01/13/21 01/14/21 01/14/21 18:59 06:59 18:59 Other: Voiding Method Toilet # Voids 2 2 - Exam No acute distress, oriented 3. Patient sitting up at bedside. Currently on O2 at 2 L. No conversational dyspnea or use of accessory muscles. HEENT examination is grossly unremarkable. Mucous membranes are moist. No oral lesions. Neck supple. Full range of motion. No adenopathy thyromegaly or neck vein dis tention. Cardiovascular examination reveals regular rhythm rate. S1-S2 normal. No S3 or S4. No discernible murmur noted. Lungs reveal mild diffuse rhonchi and a few scattered crackles. No wheezes. Breath sounds equal bilaterally. Abdomen soft bowel sounds are heard. No masses or tenderness. Extremities are intact. No cyanosis clubbing or edema. Skin is without rash or lesion. Neurologic examination is brief but nonfocal. - Labs CBC & Chem 7: 01/12/21 13:16 01/13/21 06:36 Assessment and Plan Plan: 1 Acute mild/moderate hypoxemic respiratory failure secondary to COVID 19 pneumonia. The patient has already been diagnosed having Covid infection approximately 12 days prior to him coming to the hospital. She is currently on 2 L of oxygen by nasal cannula. He is on Decadron. 2 Prior history of tobacco use. 3 History of diverticular disease. Plan Keep the patient on 2 L of oxygen by nasal cannula and on today's evaluation we checked the patient on room air oxygen and the patient's pulse ox was above 92- 93% after 5 minutes. We may be able to wean him down further to room air oxygen. Continue Decadron Monitor oxygenation Monitor inflammatory markers Lovenox for DVT prophylaxis We'll follow
[2021-01-15] MEDS: ENOXAPARIN 40 MG/0.4 ML SYRINGE SQ SCH (08:35)
[2021-01-15] MEDS: ZINC SULFATE 220 MG CAP PO SCH (08:36)
[2021-01-15] MEDS: FAMOTIDINE 20 MG TAB PO SCH (08:36)
[2021-01-15] MEDS: dexAMETHasone 2 MG TAB PO SCH (08:36)
[2021-01-15] MEDS: ASCORBIC ACID 500 MG TAB PO SCH (08:36)
[2021-01-15] MEDS: CHOLECALCIFEROL 25 MCG (1000 IU) TABLET PO SCH (08:36)
[2021-01-15 10:28] VITALS: PULSE 63; RESP 18
[2021-01-15 11:55] LABS: Basophils # (A) 0.01 X 10*3/uL (0.00-0.10); Basophils % (A) 0.1 %; Eosinophils # (A) 0.01 X 10*3/uL (0.04-0.35); Eosinophils % (A) 0.1 %; HCT 39.6 % (39.6-50.0); Lymphocytes # (A) 1.83 X 10*3/uL (0.90-5.00); Lymphocytes % (A) 20.8 %; MCH 29.3 pg (27.0-32.0); MCHC 32.8 g/dL (32.0-37.0); MCV 89.2 fL (80.0-97.0); Mean Platelet Volume 10.3 fL (9.5-12.2); Neutrophils % (A) 70.5 %; Platelet Count 460 X 10*3/uL (140-440); RBC 4.44 X 10*6/uL (4.40-5.60); RDW 12.4 % (11.5-14.5); WBC 8.79 X 10*3/uL (4.50-10.00)
--- NOTE | 2021-01-15 13:13 | P.PN ---
Subjective Progress Note Date: 01/15/21 Principal diagnosis: 55-year-old male, who presents to the emergency department on January 12, at about 1:00 PM, with complaints of increasing shortness of breath. The patient was apparently diagnosed with COVID infection 11 or 12 days ago. At that time, the patient had worsening shortness of breath, generalized weakness and fatigue, intermittent fevers, poor appetite, with multiple aches and soreness. Because of worsening shortness of breath, and just generally not feeling well, he decided to come in to be evaluated. Apparently, the patient reports no significant past medical history, other than for diverticular disease with abscess. Apparently, the patient only takes Colace at home, and [place]. The patient was apparently a former smoker as well. White count 5.9, hemoglobin 14.1, hematocrit 40.7, platelet count 331,000. PT, INR, PTT, and d-dimer are all normal. Sodium 139, potassium 4.5, chlorides 107, CO2 25, anion gap 7, BUN 17 and creatinine was 0.7. Lactic acid was 2.3, and repeat was 1. Ferritin 1256, LDH 771, C-reactive protein 53 and pro-calcitonin level was 0.07. Chest x-ray was done on the , and compared to a chest x-ray that was done on the . The more recent chest x-ray shows bilateral worsening patchy infiltrates. 01/14/2021 the patient is being seen for a follow-up. 55-year-old male patient was hospitalized for Covid 19 related pneumonia secondary hypoxic respiratory failure. The patient is currently on Decadron 6 mg on a daily basis. The patient is doing well. The patient is currently on 2 L about 2 by nasal cannula with a pulse of 75%. The chest x-ray at time of admission showed worsening and patchy bilateral pulmonary infiltrates compatible with a pneumonia. The patient's inflammatory markers showed a d-dimer of 0.52 and the patient is currently on Lovenox for DVT prophylaxis. The patient also has a pro-calcitonin level THAT WAS LOW AT 0.07 WITH AN LDH LEVEL OF 771 AND A CRP OF 52. These are inflammatory markers from yesterday. No levels from today. Chest x-ray from admission was showing bilateral pulmonary infiltrates, peripheral distribution with areas of consolidation. 55-year-old male, who presents to the emergency department on January 12, at about 1:00 PM, with complaints of increasing shortness of breath. The patient was apparently diagnosed with COVID infection 11 or 12 days ago. At that time, the patient had worsening shortness of breath, generalized weakness and fatigue, intermittent fevers, poor appetite, with multiple aches and soreness. Because of worsening shortness of breath, and just generally not feeling well, he decided to come in to be evaluated. Apparently, the patient reports no significant past medical history, other than for diverticular disease with absc ess. Apparently, the patient only takes Colace at home, and [place]. The patient was apparently a former smoker as well. White count 5.9, hemoglobin 14.1, hematocrit 40.7, platelet count 331,000. PT, INR, PTT, and d-dimer are all normal. Sodium 139, potassium 4.5, chlorides 107, CO2 25, anion gap 7, BUN 17 and creatinine was 0.7. Lactic acid was 2.3, and repeat was 1. Ferritin 1256, LDH 771, C-reactive protein 53 and pro-calcitonin level was 0.07. Chest x-ray was done on the , and compared to a chest x-ray that was done on the . The more recent chest x-ray shows bilateral worsening patchy infiltrates. 01/14/2021 the patient is being seen for a follow-up. 55-year-old male patient was hospitalized for Covid 19 related pneumonia secondary hypoxic respiratory failure. The patient is currently on Decadron 6 mg on a daily basis. The patient is doing well. The patient is currently on 2 L about 2 by nasal cannula with a pulse of 75%. The chest x-ray at time of admission showed worsening and patchy bilateral pulmonary infiltrates compatible with a pneumonia. The patient 's inflammatory markers showed a d-dimer of 0.52 and the patient is currently on Lovenox for DVT prophylaxis. The patient also has a pro-calcitonin level THAT WAS LOW AT 0.07 WITH AN LDH LEVEL OF 771 AND A CRP OF 52. These are inflammatory markers from yesterday. No levels from today. Chest x-ray from admission was showing bilateral pulmonary infiltrates, peripheral distribution with areas of consolidation. 01/15/2021, the patient is doing much better and the patient is currently on room air oxygen. This patient has Covid 19 related pneumonia with hypoxic respiratory failure patient is improved. The patient is on Decadron 6 mg by mouth daily without any side effects. No new complaints from today. The patient is ambulating. The patient on Lovenox 40 mg subcu for DVT prophylaxis. Labs from today showed a white cell count of a 8.7 with a platelet count of 460. No other issues otherwise for now. Objective - Vital Signs Vital signs: Vital Signs Temp 97.6 F 01/15/21 10:00 Pulse 63 01/15/21 10:00 Resp 18 01/15/21 10:00 BP 135/83 01/15/21 10:00 Pulse Ox 93 L 01/15/21 10:00 Intake & Output 01/14/21 01/15/21 01/15/21 18:59 06:59 18:59 Intake Total 540 Balance 540 Intake: Oral 540 Other: Voiding Method Toilet # Voids 2 4 - Exam No acute distress, oriented 3. Patient sitting up at bedside. Currently on RA. No conversational dyspnea or use of accessory muscles. HEENT examination is grossly unremarkable. Mucous membranes are moist. No oral lesions. Neck supple. Full range of motion. No adenopathy thyromegaly or neck vein distention. Cardiovascular examination reveals regular rhythm rate. S1-S2 normal. No S3 or S4. No discernible murmur noted. Lungs reveal mild diffuse rhonchi and a few scattered crackles. No wheezes. Breath sounds equal bilaterally. Abdomen soft bowel sounds are heard. No masses or tenderness. Extremities are intact. No cyanosis clubbing or edema. Skin is without rash or lesion. Neurologic examination is brief but nonfocal. - - Labs CBC & Chem 7: 01/15/21 06:39 01/13/21 06:36 Labs: Abnormal Lab Results - Last 24 Hours (Table) 01/15/21 Range/Units 06:39 Plt Count 460 H (140-440) X 10*3/uL Eosinophils # 0.01 L (0.04-0.35) X 10*3/uL Assessment and Plan Plan: 1 Acute mild/moderate hypoxemic respiratory failure secondary to COVID 19 pneumonia. The patient has already been diagnosed having Covid infection approximately 12 days prior to him coming to the hospital. She is currently RA oxygen by nasal cannula. He is on Decadron. 2 Prior history of tobacco use. 3 History of diverticular disease. Plan Keep the patient on room air oxygen Continue Decadron 6 mg by mouth daily to complete a total of 10 day course Monitor oxygenation Monitor inflammatory markers Lovenox for DVT prophylaxis We'll follow, possible discharge home today and the patient is quite stable for now. He will need outpatient steroids. We will recommend a pulse oximeter that he needs to purchase on outpatient basis and monitor his oxygen.
[2021-01-15 13:39] LABS: African American GFR (CKD) 124.9 (60.0-200.0); Anion Gap 12.3 mmol/L (4.00-12.00); Calcium 8.6 mg/dL (8.7-10.3); Carbon Dioxide 23.7 mmol/L (21.6-31.8); Non-African American GFR(CKD) 107.7 (60.0-200.0)
[2021-01-15 14:19] VITALS: BP 146/81; TEMP 98
--- NOTE | 2021-01-15 16:13 | P.PN ---
Subjective Progress Note Date: 01/14/21 Principal diagnosis: Acute Covid 19 pneumonia 55-year-old male presenting for evaluation of increased cough and dyspnea. Patient was diagnosed with coronavirus approximately 11 days ago and had cold symptoms for about 2 weeks. He's had worsening dyspnea. He's had increased ge neralized weakness and fatigue. He has had persistent fevers. Patient states he is otherwise healthy, no chronic medical conditions. He's had no significant vomiting or diarrhea. Patient also complaining of for dehydration lightheadedness and patient does have low sodium and low potassium patient will be started on IV fluids patient does have elevated inflammatory markers although d-dimer is only 0.52 01/13/2021 Patient remains on 2 L of oxygen saturations remain in the low 90s patient is p resently on systemic steroids. 01/14/2021 Patient is currently resting in the bed. He was complaining of dizziness when he gets up from bed. Orthostatic vitals were checked and were positive. Maria D ent was given fluid bolus with improvement in symptoms. Otherwise patient is respiratory status is improving and is currently on 2 L oxygen via nasal cannula. Patient is being continued on dexamethasone, Lovenox and multivitamins. Pulmonary is following. Constitutional: Denied any fatigue denied any fever. Cardio vascular: denied any chest pain, palpitations Gastrointestinal denied any nausea vomiting Pulmonary: Denied any worsening shortness of breath or cough Neurologic denied any new focal deficits All inpatient medications were reviewed and appropriate changes in these medications as dictated in the interval history and assessment and plan. Objective - Vital Signs Vital signs: Vital Signs Temp 97.8 F 01/14/21 10:13 Pulse 72 01/14/21 10:15 Resp 17 01/14/21 10:13 BP 130/83 01/14/21 10:15 Pulse Ox 93 L 01/14/21 10:15 Intake & Output 01/13/21 01/14/21 01/14/21 18:59 06:59 18:59 Other: Voiding Method Toilet # Voids 2 2 - Exam PHYSICAL EXAMINATION: GENERAL: The patient is alert and oriented x3, not in any acute distress. Well developed, well nourished. HEENT: Pupils are round and equally reacting to light. EOMI. No scleral icterus. No conjunctival pallor. Normocephalic, atraumatic. No pharyngeal erythema. No thyromegaly. CARDIOVASCULAR: S1 and S2 present. No murmurs, rubs, or gallops. PULMONARY: Chest is clear to auscultation, no wheezing or crackles. ABDOMEN: Soft, nontender, nondistended, normoactive bowel sounds. No palpable organomegaly. MUSCULOSKELETAL: No joint swelling or deformity. EXTREMITIES: No cyanosis, clubbing, or pedal edema. NEUROLOGICAL: Gross neurological examination did not reveal any focal deficits. SKIN: No rashes. - Labs CBC & Chem 7: 01/15/21 06:39 01/15/21 06:39 Assessment and Plan Assessment: -Hypoxemia secondary to acute Covid 19 pneumonia. Was diagnosed 4 days prior to admission. Patient chest x-ray showing significant infiltrate and she much worse compared to his previous ER visits. Patient is on Decadron, zinc, vitamin C, Pepcid. Patient was started on IV fluids. Monitor inflammatory markers -hypovolemic hyponatremia: IV fluids at 100 mL/h. Sodium level improved. -Hypokalemia potassium was replaced Lactic acidosis resolved secondary to hypovolemia.- -DVT prophylaxis: Lovenox Time with Patient: Greater than 30
== END 2021-01-15 16:00 | disposition home or self-care (01) | DRG 177 ==
LOC: EC 13:02 → 4SSUR 15:28
PROVIDERS: ADMIT Internal Medicine; ATTEND Internal Medicine
DX: U07.1 COVID-19 (principal); J12.82 Pneumonia due to coronavirus disease 2019; J96.01 Acute respiratory failure with hypoxia; E87.1 Hypo-osmolality and hyponatremia; E87.2 Acidosis; E86.1 Hypovolemia; E87.6 Hypokalemia; E86.0 Dehydration; K57.90 Diverticulosis of intestine, part unspecified, without perforation or abscess without bleeding; Z90.49 Acquired absence of other specified parts of digestive tract; Z98.52 Vasectomy status; Z87.891 Personal history of nicotine dependence; Z88.0 Allergy status to penicillin; Z82.49 Family history of ischemic heart disease and other diseases of the circulatory system
CPT/HCPCS: 36415; 71045; 80048; 80053; 82728; 83605; 83615; 83735; 84145; 85025; 85379; 85610; 85730; 86140; 93005; 96361; 96374; 99285

== ENCOUNTER 2021-06-12 14:19 | Emergency (ER) | payer BC ==
[2021-06-12 14:55] VITALS: TEMP 99.2
[2021-06-12] MEDS ORDERED: SODIUM CHLORIDE 0.9% 1,000 ML IV STA (15:20)
--- NOTE | 2021-06-12 15:21 | ED ---
SOB HPI - General Chief Complaint: Shortness of Breath Stated Complaint: SOB, elevated BP Time Seen by Provider: 06/12/21 15:20 Source: patient Mode of arrival: wheelchair Limitations: no limitations - History of Present Illness Initial Comments: Ricco to 5-year-old male presents the emergency department today via private vehicle for evaluation of shortness of breath and tingling primarily in his arms. Patient had COVID in December of this year, he subsequently was vaccinated, he has not been able to follow up with pulmonology but is scheduled to see Dr. Keating on the of this month. Patient states that this morning he began feeling short of breath. He states that he didn't feel like he was wheezing and there was any tightness in his chest but he did use his 's nebulizer with no improvement in his symptoms. Patient describes feeling as though the areas too sick and he can get in his lungs. He is not having any chest pain, palpitations or diaphoresis. Symptoms have persisted for nearly 3 hours which prompted him to come to the ER for evaluation. Patient states he checked his blood pressure, heart rate and oxygen levels at home, he was hypertensive and his heart rate was in the 90s which is elevated for him but his oxygen remained 99%. She is a nonsmoker with no history of heart disease. Does have a family history of heart disease. - Related Data Home Medications Medication Instructions Recorded Confirmed Acetaminophen Tab [Tylenol] 1,000 mg PO ONCE PRN 01/12/21 01/12/21 Melatonin (Unknown Strength) 1 tab PO ONCE PRN 01/12/21 01/12/21 Previous Rx's Medication Instructions Recorded Dexamethasone [Decadron] 6 mg PO DAILY 8 Days #8 tablet 01/15/21 Azithromycin 250 mg PO DAILY 5 Days #5 tab 06/12/21 Allergies Allergy/AdvReac Type Severity Reaction Status Date / Time Penicillins Allergy Swelling Verified 06/12/21 14:55 Review of Systems ROS Statement: Those systems with pertinent positive or pertinent negative responses have been documented in the HPI. ROS Other: All systems not noted in ROS Statement are negative. Past Medical History Past Medical History: No Reported History Additional Past Medical History / Comment(s): diverticulitis with abscess History of Any Multi-Drug Resistant Organisms: None Reported Past Surgical History: Cholecystectomy Additional Past Surgical History / Comment(s): vasectomy Past Anesthesia/Blood Transfusion Reactions: Previous Problems w/ Anesthesia Additional Past Anesthesia/Blood Transfusion Reaction / Comment(s): difficult intubation with cholecystectomy intubated through nose Past Psychological History: No Psychological Hx Reported Smoking Status: Former smoker Past Alcohol Use History: Occasional Past Drug Use History: None Reported - Past Family History Father Family Medical History: Hypertension Additional Family Medical History / Comment(s): heart issues with blood vessels. Mother Family Medical History: No Reported History Additional Family Medical History / Comment(s): colitis General Exam - General Exam Comments Initial Comments: Physical Exam GENERAL: Patient is well-developed and well-nourished. Patient is nontoxic and well- hydrated and is in no distress. HENT: Normocephalic, Atraumatic. EYES: PERRL, EOMI PULMONARY: Unlabored respirations. No audible rales rhonchi or wheezing was noted. CARDIOVASCULAR: There is a regular rate and rhythm without any murmurs gallops or rubs. ABDOMEN: Soft and nontender with normal bowel sounds. SKIN: Skin is clear with no lesions or rashes and otherwise unremarkable. : Deferred NEUROLOGIC: Patient is alert and oriented x3. Moving all extremities spontaneously MUSCULOSKELETAL: Normal extremities with adequate strength and full range of motion. No lower extremity swelling or edema. No calf tenderness. PSYCHIATRIC: Normal psychiatric evaluation. Limitations: no limitations Course Vital Signs 06/12/21 06/12/21 06/12/21 14:51 15:55 16:38 Temperature 99.2 F Pulse Rate 78 Respiratory 18 18 20 Rate Blood Pressure 156/95 O2 Sat by Pulse 98 Oximetry Medical Decision Making - Medical Decision Making She was seen and evaluated history is obtained from patient Labs are obtained on her relatively unremarkable, computed tomography scan of the chest was obtained there is no PE however posterior interstitial infiltrates concerning for early pneumonia were identified. Patient was started on azithromycin. Patient remained afebrile, there is no tachycardia or hypoxia while in the emergency department. When returning from CT patient did have an episode of becoming flushed and feeling as though he was going to pass out. He had no wheezing, no hypoxia, no tachycardia, no hypotension at that time. I suspect this was flushing secondary to the IV dye and not a true ALLERGIC reaction. - Lab Data Result diagrams: 06/12/21 16:33 06/12/21 16:33 Lab Results 06/12/21 06/12/2121 Range/Units 16:33 16:33 16:33 WBC 8.4 (3.8-10.6) k/uL RBC 5.26 (4.30-5.90) m/uL Hgb 16.2 (13.0-17.5) gm/dL Hct 47.5 (39.0-53.0) % MCV 90.4 (80.0-100.0) fL MCH 30.8 (25.0-35.0) pg MCHC 34.1 (31.0-37.0) g/dL RDW 14.0 (11.5-15.5) % Plt Count 265 (150-450) k/uL MPV 7.0 Neutrophils % 63 % Lymphocytes % 26 % Monocytes % 7 % Eosinophils % 2 % Basophils % 1 % Neutrophils # 5.3 (1.3-7.7) k/uL Lymphocytes # 2.2 (1.0-4.8) k/uL Monocytes # 0.5 (0-1.0) k/uL Eosinophils # 0.2 (0-0.7) k/uL Basophils # 0.0 (0-0.2) k/uL PT 10.3 (9.0-12.0) sec INR 1.0 (<1.2) APTT 25.2 (22.0-30.0) sec Sodium 140 (137-145) mmol/L Potassium 3.6 (3.5-5.1) mmol/L Chloride 108 H (98-107) mmol/L Carbon Dioxide 23 (22-30) mmol/L Anion Gap 9 mmol/L BUN 13 (9-20) mg/dL Creatinine 0.80 (0.66-1.25) mg/dL Est GFR (CKD-EPI)AfAm >90 (>60 ml/min/1.73 sqM) Est GFR (CKD-EPI)NonAf >90 (>60 ml/min/1.73 sqM) Glucose 100 H (74-99) mg/dL Plasma Lactic Acid Ronnie (0.7-2.0) mmol/L Calcium 10.0 (8.4-10.2) mg/dL Total Bilirubin 0.3 (0.2-1.3) mg/dL AST 23 (17-59) U/L ALT 29 (4-49) U/L Alkaline Phosphatase 59 (38-126) U/L Troponin I (0.000-0.034) ng/mL NT-Pro-B Natriuret Pep pg/mL Total Protein 6.7 (6.3-8.2) g/dL Albumin 4.2 (3.5-5.0) g/dL Coronavirus (PCR) (Not Detectd) 06/12/21 06/12/21 06/12/21 Range/Units 16:33 16:33 16:33 WBC (3.8-10.6) k/uL RBC (4.30-5.90) m/uL Hgb (13.0-17.5) gm/dL Hct (39.0-53.0) % MCV (80.0-100.0) fL MCH (25.0-35.0) pg MCHC (31.0-37.0) g/dL RDW (11.5-15.5) % Plt Count (150-450) k/uL MPV Neutrophils % % Lymphocytes % % Monocytes % % Eosinophils % % Basophils % % Neutrophils # (1.3-7.7) k/uL Lymphocytes # (1.0-4.8) k/uL Monocytes # (0-1.0) k/uL Eosinophils # (0-0.7) k/uL Basophils # (0-0.2) k/uL PT (9.0-12.0) sec INR (<1.2) APTT (22.0-30.0) sec Sodium (137-145) mmol/L Potassium (3.5-5.1) mmol/L Chloride (98-107) mmol/L Carbon Dioxide (22-30) mmol/L Anion Gap mmol/L BUN (9-20) mg/dL Creatinine (0.66-1.25) mg/dL Est GFR (CKD-EPI)AfAm (>60 ml/min/1.73 sqM) Est GFR (CKD-EPI)NonAf (>60 ml/min/1.73 sqM) Glucose (74-99) mg/dL Plasma Lactic Acid Ronnie 1.3 (0.7-2.0) mmol/L Calcium (8.4-10.2) mg/dL Total Bilirubin (0.2-1.3) mg/dL AST (17-59) U/L ALT (4-49) U/L Alkaline Phosphatase (38-126) U/L Troponin I <0.012 (0.000-0.034) ng/mL NT-Pro-B Natriuret Pep <11 pg/mL Total Protein (6.3-8.2) g/dL Albumin (3.5-5.0) g/dL Coronavirus (PCR) (Not Detectd) 06/12/21 Range/Units 16:37 WBC (3.8-10.6) k/uL RBC (4.30-5.90) m/uL Hgb (13.0-17.5) gm/dL Hct (39.0-53.0) % MCV (80.0-100.0) fL MCH (25.0-35.0) pg MCHC (31.0-37.0) g/dL RDW (11.5-15.5) % Plt Count (150-450) k/uL MPV Neutrophils % % Lymphocytes % % Monocytes % % Eosinophils % % Basophils % % Neutrophils # (1.3-7.7) k/uL Lymphocytes # (1.0-4.8) k/uL Monocytes # (0-1.0) k/uL Eosinophils # (0-0.7) k/uL Basophils # (0-0.2) k/uL PT (9.0-12.0) sec INR (<1.2) APTT (22.0-30.0) sec Sodium (137-145) mmol/L Potassium (3.5-5.1) mmol/L Chloride (98-107) mmol/L Carbon Dioxide (22-30) mmol/L Anion Gap mmol/L BUN (9-20) mg/dL Creatinine (0.66-1.25) mg/dL Est GFR (CKD-EPI)AfAm (>60 ml/min/1.73 sqM) Est GFR (CKD-EPI)NonAf (>60 ml/min/1.73 sqM) Glucose (74-99) mg/dL Plasma Lactic Acid Ronnie (0.7-2.0) mmol/L Calcium (8.4-10.2) mg/dL Total Bilirubin (0.2-1.3) mg/dL AST (17-59) U/L ALT (4-49) U/L Alkaline Phosphatase (38-126) U/L Troponin I (0.000-0.034) ng/mL NT-Pro-B Natriuret Pep pg/mL Total Protein (6.3-8.2) g/dL Albumin (3.5-5.0) g/dL Coronavirus (PCR) Not Detected (Not Detectd) - EKG Data -: EKG Interpreted by Me EKG Comments: EKG was obtained due to complaint of shortness breath, EKG was obtained at 1504 EKG with a rate of 76 rhythm is sinus there is normal axis, normal intervals, PA 196, QRS 90, QTC 389 there are no acute ST elevations or evidence of acute infarction. Disposition Clinical Impression: Pneumonia Disposition: HOME SELF-CARE Condition: Stable Prescriptions: Azithromycin 250 mg PO DAILY 5 Days #5 tab Is patient prescribed a controlled substance at d/c from ED?: No Referrals: Zenia Zapien MD [Primary Care Provider] - 1-2 days
[2021-06-12] MEDS ORDERED: ASPIRIN 81 MG PO STA (15:34)
[2021-06-12 16:39] VITALS: RESP 20
[2021-06-12 16:49] LABS: Basophils % (A) 1 %; Eosinophils # (A) 0.2 k/uL (0-0.7); Eosinophils % (A) 2 %; HCT 47.5 % (39.0-53.0); HGB 16.2 gm/dL (13.0-17.5); Lymphocytes # (A) 2.2 k/uL (1.0-4.8); Lymphocytes % (A) 26 %; MCH 30.8 pg (25.0-35.0); MCHC 34.1 g/dL (31.0-37.0); MCV 90.4 fL (80.0-100.0); Monocytes # (A) 0.5 k/uL (0-1.0); Monocytes % (A) 7 %; Neutrophils # (A) 5.3 k/uL (1.3-7.7); Neutrophils % (A) 63 %; Platelet Count 265 k/uL (150-450); RBC 5.26 m/uL (4.30-5.90); WBC 8.4 k/uL (3.8-10.6)
[2021-06-12 16:57] LABS: Partial Thromboplastin Time 25.2 sec (22.0-30.0); Prothrombin Time 10.3 sec (9.0-12.0)
[2021-06-12 16:59] LABS: ALT 29 U/L (4-49); AST 23 U/L (17-59); African American GFR (CKD) >90 (>60 ml/min/1.73 sqM); Albumin 4.2 g/dL (3.5-5.0); Alkaline Phosphatase 59 U/L (38-126); Anion Gap 9 mmol/L; Blood Urea Nitrogen 13 mg/dL (9-20); Carbon Dioxide 23 mmol/L (22-30); Chloride 108 mmol/L (98-107); Glucose 100 mg/dL (74-99); Non-African American GFR(CKD) >90 (>60 ml/min/1.73 sqM); Potassium 3.6 mmol/L (3.5-5.1); Sodium 140 mmol/L (137-145); Total Bilirubin 0.3 mg/dL (0.2-1.3); Total Protein 6.7 g/dL (6.3-8.2)
--- NOTE | 2021-06-12 17:11 | CT ---
EXAMINATION TYPE: CT chest angio for PE DATE OF EXAM: 06/12/2021 COMPARISON: None HISTORY: shortness of breath, high blood pressure CT DLP: 355.5 mGycm Automated exposure control for dose reduction was used. CONTRAST: Performed with IV Contrast, patient injected with 100 mL of Isovue 370. There are 3-D post processed images. There is some interstitial infiltrates in the posterior lung arenas. There is no pleural effusion. He art size is normal. There is no pericardial effusion. There is no mediastinal adenopathy. There are no hilar masses. Bony thorax is intact. The thoracic aorta is intact. There is no aneurysm or dissection. Ascending aorta measures 3.5 cm. Th e thoracic spine is intact. There is no compression fracture. There is normal contrast opacification of the pulmonary arteries. There are no filling defects. IMPRESSION: No evidence of pulmonary embolism. Mild pulmonary interstitial posterior infiltrates.
[2021-06-12] MEDS ORDERED: AZITHROMYCIN 500 MG TAB PO STA (17:24)
[2021-06-12 18:04] VITALS: BP 157/98
--- NOTE | 2021-06-12 18:42 | XR ---
EXAMINATION TYPE: XR chest 1V portable DATE OF EXAM: 06/12/2021 COMPARISON: 01/12/2021 HISTORY: Short of breath TECHNIQUE: FINDINGS: Heart is normal. Lungs are clear of infiltrate. There is no heart failure. There are chest leads. Bony thorax is intact. IMPRESSION: No active cardiopulmonary disease. There is clearing of the bilateral patchy pulmonary in filtrates compared to old exam.
[2021-06-12 19:23] VITALS: PULSE 68
== END 2021-06-12 19:22 | disposition home or self-care (01) ==
LOC: EC 14:19
DX: J18.9 Pneumonia, unspecified organism (principal); Z87.891 Personal history of nicotine dependence; Z88.0 Allergy status to penicillin; Z20.822 Contact with and (suspected) exposure to COVID-19
CPT/HCPCS: 99285; 96360; 96361; 36415; 93005; 83880; 80053; 83605; 84484; 85025; 85610; 85730; 87635; 71045; 71275; Q9967

== ENCOUNTER 2021-09-16 09:53 | Day surgery (SDC) | payer BC ==
[~2021-09-16 09:53] MED LIST changes: -ACETAMINOPHEN TAB 500 MG TAB PO ONE; +ALPRAZolam 0.25 MG TAB PO PRN; +ALPRAZolam 0.5 MG TAB PO PRN; +ASPIRIN 325 MG TAB PO STA; +HEPARIN SODIUM,PORCINE 10,000 UNIT in SODIUM CHLORIDE 0.9% 1,000 ML IRRIGATION PRN; +HEPARIN SODIUM,PORCINE 2,500 UNIT in SODIUM CHLORIDE 0.9% 250 ML IRRIGATION PRN; -HEPARIN SODIUM,PORCINE 5,000 UNIT/ML 1 ML VIAL SQ ONE; +NITROGLYCERIN SL TABS 0.4 MG TAB SUBLINGUAL PRN; +SODIUM CHLORIDE 0.9% 1,000 ML in EMPTY BAG 1 BAG IV SCH; -metroNIDAZOLE-NS PMX 500 MG in SALINE 1 100ML.BAG IVPB ONE
[2021-09-16] MEDS ORDERED: SODIUM CHLORIDE 0.9% 1,000 ML IV ONE (10:30)
[2021-09-16 10:36] VITALS: RESP 16; TEMP 9801
[2021-09-16 11:06] LABS: Basophils # (A) 0.1 k/uL (0-0.2); Basophils % (A) 1 %; Eosinophils # (A) 0.3 k/uL (0-0.7); Eosinophils % (A) 4 %; HGB 15.6 gm/dL (13.0-17.5); Lymphocytes # (A) 2.1 k/uL (1.0-4.8); Lymphocytes % (A) 29 %; MCH 30.2 pg (25.0-35.0); MCHC 33.9 g/dL (31.0-37.0); MCV 89.1 fL (80.0-100.0); Mean Platelet Volume 7.2; Monocytes # (A) 0.4 k/uL (0-1.0); Monocytes % (A) 6 %; Neutrophils # (A) 4.2 k/uL (1.3-7.7); Neutrophils % (A) 58 %; Platelet Count 289 k/uL (150-450); RBC 5.16 m/uL (4.30-5.90); RDW 13.3 % (11.5-15.5); WBC 7.2 k/uL (3.8-10.6)
[2021-09-16 11:25] LABS: African American GFR (CKD) >90 (>60 ml/min/1.73 sqM); Anion Gap 9 mmol/L; Blood Urea Nitrogen 14 mg/dL (9-20); Calcium 9.5 mg/dL (8.4-10.2); Carbon Dioxide 24 mmol/L (22-30); Chloride 106 mmol/L (98-107); Glucose 120 mg/dL (74-99); Non-African American GFR(CKD) >90 (>60 ml/min/1.73 sqM); Potassium 4.5 mmol/L (3.5-5.1); Sodium 139 mmol/L (137-145)
[2021-09-16] MEDS ORDERED: fentaNYL (PF) 50 MCG/ML 2 ML AMP ONE (11:39)
[2021-09-16] MEDS ORDERED: HEPARIN SODIUM 1,000 UN/ML (10ML VL) ONE (11:39)
[2021-09-16] MEDS ORDERED: fentaNYL (PF) 50 MCG/ML 2 ML AMP IV ONE (11:57)
[2021-09-16] MEDS ORDERED: LIDOCAINE 1% INJ 10MG/ML (20 ML MDV) SQ ONE (12:00)
[2021-09-16] MEDS ORDERED: VERAPAMIL SYRINGE (5 MG/10 ML) INTRAARTER ONE (12:01)
[2021-09-16] MEDS ORDERED: MIDAZOLAM 2 MG/2 ML VIAL IV ONE (12:04)
[2021-09-16] MEDS ORDERED: HEPARIN SODIUM 1,000 UN/ML (10ML VL) IV ONE (12:05)
[2021-09-16] MEDS ORDERED: IOPAMIDOL-370 125ML BTL INJ ONE (12:11)
[2021-09-16] MEDS ORDERED: RX INFO: IV CONTRAST WAS GIVEN 1 EACH MISC MISCELLANE PRN (12:19)
[2021-09-16] MEDS ORDERED: SODIUM CHLORIDE 0.9% 1,000 ML IV SCH (12:30)
--- NOTE | 2021-09-16 12:37 | CC ---
CARDIAC CATHETERIZATION REPORT DATE OF SERVICE: 09/16/2021 Mr. Plaza is a 55-year-old male with no prior documented history of coronary artery disease who has been complaining of progressive episodes of chest discomfort and dyspnea on exertion. His EKG showed T-wave inversion laterally. In view of that, recommendation was made regarding cardiac catheterization. The procedure as well as risks and complications were discussed with the patient, who was in full understanding and agreement. PROCEDURE DESCRIPTION: Patient was brought to the sugar laboratory assistant in a fasting, semi-sedated state after receiving fentanyl and Benadryl and achieving a moderate conscious sedated state. Using Xylocaine anesthesia and Seldinger technique, a 6-Cambodian sheath was introduced in the right radial artery. Selective right and left angiography was performed using 5-Cambodian 3.5 bend right and left Robin catheters. Multiple views were taken of the arteries, including hemiaxial views. Following that, the 5-Cambodian right Robin was used to cross the aortic valve, and left ventricular end-diastolic pressure was calculated. Following that, catheter and sheaths were removed. Hemostasis was obtained with deployment of a TR band. There was no immediate complication. Patient was returned to his room in stable condition. Of note, patient received 5000 units of intravenous heparin as well as intra-arterial verapamil. FINDINGS: LEFT MAIN: This is a short-sized vessel bifurcating into left circumflex and left anterior descending artery. Left main coronary artery has no evidence of high-grade stenosis. LEFT ANTERIOR DESCENDING ARTERY: This is a large-sized vessel reaching toward the apex with a wrap around the apex segment giving rise to two diagonal branches. The left anterior descending artery as well as its branches have no evidence of obstructive coronary artery disease. LEFT CIRCUMFLEX: This is a large nondominant vessel giving rise to a large obtuse marginal branch. The left circumflex as well as its branches have no evidence of obstructive coronary artery disease. RIGHT CORONARY ARTERY: This is a large dominant vessel bifurcating into PDA and posterolateral segment and branches. The right coronary artery as well as its branches have no evidence of obstructive coronary artery disease. LEFT VENTRICULOGRAM: Left ventriculogram was not performed. HEMODYNAMICS: There was no gradient across the aortic valve. The left ventricular end- diastolic pressure is 12-14 mmHg. CONCLUSION: 1. Normal coronary arteries. 2. Right dominance. RECOMMENDATIONS: In view of findings and anatomy, I have recommended continued medical therapy with the aggressive coronary risk modifications that have been initiated. Those findings and recommendations were discussed with the patient and his family, and they are in full understanding and agreement. Duration of sedation was 11 minutes. JOSE / VIVIANAN: [id number] /
--- NOTE | 2021-09-16 12:43 | LTR ---
September 16, 2021 To: Dr. Zapien Re: Ricco Plaza (69) Dear Dr. Zapien, I had the pleasure of performing cardiac catheterization on Mr. Plaza at [facility] on September 16, and a full copy of the procedure will be forwarded to you. In brief, he was found to have no evidence of significant obstructive coronary artery disease, with a preserved left ventricular size and systolic function. Based on those findings, I have recommended continued medical therapy with the aggressive coronary risk modifications you have initiated. Thank you again for allowing me to participate in this patient's care. Please feel free to call with any questions. Sincerely, Nixon Ambrocio M.D. JOSE / TATIANA: [phone] /
[2021-09-16 14:56] VITALS: BP 112/68; PULSE 64
[2021-09-17] MEDS ORDERED: METOPROLOL SUCCINATE (ER) 50 MG TAB.ER.24H PO SCH (09:00)
[2021-09-17] MEDS ORDERED: LOSARTAN 50 MG TAB PO SCH (09:00)
[2021-09-17] MEDS ORDERED: ASPIRIN 81 MG PO SCH (09:00)
== END 2021-09-16 15:09 | disposition home or self-care (01) ==
LOC: CATHCVL 09:53
PROVIDERS: ATTEND Internal Medicine Interventional Cardiology
DX: R07.9 Chest pain, unspecified (principal); I10 Essential (primary) hypertension; F17.210 Nicotine dependence, cigarettes, uncomplicated; Z20.822 Contact with and (suspected) exposure to COVID-19; Z79.82 Long term (current) use of aspirin; Z79.899 Other long term (current) drug therapy; Z88.0 Allergy status to penicillin
CPT/HCPCS: 93458; 80048; 85025; 87635; C1894; C1769; J2250; J2001; J3010; J1644; Q9967

== ENCOUNTER 2022-08-17 17:23 | Emergency (ER) | payer BC ==
[2022-08-17 17:50] VITALS: TEMP 98.1
[2022-08-17] MEDS ORDERED: ORPHENADRINE 30 MG/ML 2 ML VIAL IM STA (18:50)
[2022-08-17] MEDS ORDERED: DEXAMETHASONE SOD PHOSPHATE 10 MG/ML 1 ML VIAL IM STA (18:50)
--- NOTE | 2022-08-17 19:35 | ED ---
Back Pain HPI - General Chief Complaint: Back Pain/Injury Stated Complaint: Back pain Time Seen by Provider: 08/17/22 18:35 Source: patient Limitations: no limitations - History of Present Illness Initial Comments: Patient is a 56-year-old male presenting with chief complaint of back pain. Patient states that yesterday while doing yard work he bent to pick something up and he felt a hole in his lower back, followed by shooting pain down both legs. Patient states that the pain is no longer shooting down his legs, however he is continuing to have lower back pain. He has been taking ibuprofen with little relief. No loss of bowel or bladder control or saddle paresthesia. No fever or chills. - Related Data Home Medications Medication Instructions Recorded Confirmed Losartan [Cozaar] 50 mg PO HS 09/12/21 08/17/22 Metoprolol Succinate [Toprol XL] 50 mg PO HS 09/12/21 08/17/22 Previous Rx's Medication Instructions Recorded Cyclobenzaprine [Flexeril] 10 mg PO TID PRN #15 tab 08/17/22 methylPREDNISolone Dose Pack 4 mg PO DIRECTED #1 packet 08/17/22 [Medrol Dose Pack] Allergies Allergy/AdvReac Type Severity Reaction Status Date / Time Penicillins Allergy Swelling Verified 08/17/22 17:49 Review of Systems ROS Statement: Those systems with pertinent positive or pertinent negative responses have been documented in the HPI. ROS Other: All systems not noted in ROS Statement are negative. Past Medical History Past Medical History: Hypertension Additional Past Medical History / Comment(s): SEE CARDIOLOGY HISTORY BY DR. AGUERO. diverticulitis with abscess. COVID 2020. History of Any Multi-Drug Resistant Organisms: None Reported Past Surgical History: Bowel Resection, Cholecystectomy Additional Past Surgical History / Comment(s): BOWEL RESECTION. vasectomy Past Anesthesia/Blood Transfusion Reactions: Previous Problems w/ Anesthesia Additional Past Anesthesia/Blood Transfusion Reaction / Comment(s): difficult intubation with cholecystectomy intubated through nose Past Psychological History: No Psychological Hx Reported Smoking Status: Former smoker Past Alcohol Use History: Occasional Past Drug Use History: None Reported - Past Family History Father Family Medical History: Hypertension Additional Family Medical History / Comment(s): heart issues with blood vessels. Mother Family Medical History: No Reported History Additional Family Medical History / Comment(s): colitis General Exam Limitations: no limitations General appearance: alert, in no apparent distress Head exam: Present: atraumatic, normocephalic, normal inspection Eye exam: Present: normal appearance, PERRL, EOMI. Absent: scleral icterus, conjunctival injection, periorbital swelling Neck exam: Present: normal inspection Extremities exam: Present: normal inspection Back exam: Present: tenderness Neurological exam: Present: alert, oriented X3, CN II-XII intact Psychiatric exam: Present: normal affect, normal mood Skin exam: Present: warm, dry, intact, normal color. Absent: rash Course Vital Signs 08/17/22 08/17/22 17:47 19:49 Temperature 98.1 F Pulse Rate 80 86 Respiratory 20 16 Rate Blood Pressure 123/82 145/69 O2 Sat by Pulse 99 99 Oximetry Medical Decision Making - Medical Decision Making Patient is a 56-year-old male presenting with chief complaint of lower back pain. Patient injured his lower back yesterday while doing yard work, when he was bending down to grab something he felt sudden onset of pain with radiation down the bilateral legs. No red flag symptoms. On examination there is tenderness to palpation of the lower back. Patient is given pain medication. X-ray shows no acute process, there is evidence of degenerative disc disease. Patient is educated on supportive treatment, provided with prescription for cyclobenzaprine.Follow-up with PCP. Report back to ER with any new or worsening symptoms. Discussed return parameters and answered all questions. Patient conveyed verbal understanding and agreed to the plan. I discussed this case in detail with my attending Dr. Zaldivar Disposition Clinical Impression: Mechanical back pain, Strain of lumbar region Disposition: HOME SELF-CARE Condition: Good Instructions (If sedation given, give patient instructions): Low Back Strain (ED), Acute Low Back Pain (ED), Lumbar Radiculopathy (ED), Lower Back Exercises (ED) Additional Instructions: Follow-up with PCP. Report back to ER with any new or worsening symptoms. Take medication as prescribed. Prescriptions: Cyclobenzaprine [Flexeril] 10 mg PO TID PRN #15 tab PRN Reason: Spasms methylPREDNISolone Dose Pack [Medrol Dose Pack] 4 mg PO DIRECTED #1 packet Is patient prescribed a controlled substance at d/c from ED?: No Referrals: None,Stated [Primary Care Provider] - 1-2 days Pasia,E Juan Carlos, DO [Doctor of Osteopathic Medicine] - 1-2 days Time of Disposition: 21:36
--- NOTE | 2022-08-17 19:55 | XR ---
EXAMINATION TYPE: XR lumbar spine 2 or 3V DATE OF EXAM: 08/17/2022 COMPARISON: NONE HISTORY: Back pain TECHNIQUE: 3 views FINDINGS: Lumbar vertebrae have normal alignment. Posterior elements are intact. There is mild narrow ing at L5-S1 disc. Sacroiliac joints are intact. IMPRESSION: Negative lumbar spine exam. No fracture. Minor degenerative disc change at L5-S1.
[2022-08-17] MEDS ORDERED: HYDROmorphone 1 MG/ML 1 ML SYRINGE IM STA (21:17)
[2022-08-17 22:45] VITALS: BP 145/69; PULSE 86; RESP 16
== END 2022-08-17 22:47 | disposition home or self-care (01) ==
LOC: EC 17:23
DX: S39.012A Strain of muscle, fascia and tendon of lower back, initial encounter (principal); I10 Essential (primary) hypertension; Z88.0 Allergy status to penicillin; Z87.891 Personal history of nicotine dependence; Z79.899 Other long term (current) drug therapy; X58.XXXA Exposure to other specified factors, initial encounter
CPT/HCPCS: 72100; 99283; 96372 ×3; J1100; J2360; J1170

== ENCOUNTER 2024-06-25 23:07 | Emergency (ER) | payer BC ==
[2024-06-25 23:18] VITALS: TEMP 98
[2024-06-25] MEDS: SODIUM CHLORIDE 0.9% 1,000 ML IV STA (23:51)
[2024-06-25] MEDS: KETOROLAC 15 MG/ML 1 ML VIAL IVP STA (23:52)
[2024-06-25] MEDS: MORPHINE SULFATE 4 MG/ML SYRINGE IVP STA (23:53)
[2024-06-26 00:25] LABS: ALT 51 U/L (4-49); AST 40 U/L (17-59); African American GFR (CKD) >90 (>60 ml/min/1.73 sqM); Albumin 4.7 g/dL (3.5-5.0); Alkaline Phosphatase 52 U/L (38-126); Amylase 52 U/L (30-110); Anion Gap 9 mmol/L; Blood Urea Nitrogen 17 mg/dL (9-20); Calcium 9.9 mg/dL (8.4-10.2); Carbon Dioxide 25 mmol/L (22-30); Chloride 105 mmol/L (98-107); Glucose 80 mg/dL (74-99); Lipase 76 U/L (23-300); Non-African American GFR(CKD) 85 (>60 ml/min/1.73 sqM); Potassium 3.8 mmol/L (3.5-5.1); Sodium 139 mmol/L (137-145); Total Bilirubin 0.9 mg/dL (0.2-1.3); Total Protein 7.5 g/dL (6.3-8.2)
[2024-06-26 00:58] LABS: Basophils # (A) 0.1 k/uL (0-0.2); Basophils % (A) 1 %; Eosinophils # (A) 0.2 k/uL (0-0.7); Eosinophils % (A) 2 %; HCT 47.4 % (39.0-53.0); HGB 16.4 gm/dL (13.0-17.5); Lymphocytes # (A) 2.7 k/uL (1.0-4.8); Lymphocytes % (A) 31 %; MCH 30.4 pg (25.0-35.0); MCHC 34.5 g/dL (31.0-37.0); MCV 88.2 fL (80.0-100.0); Mean Platelet Volume 8.1; Monocytes # (A) 0.6 k/uL (0-1.0); Monocytes % (A) 6 %; Neutrophils # (A) 5.3 k/uL (1.3-7.7); Neutrophils % (A) 59 %; Platelet Count 289 k/uL (150-450); RBC 5.38 m/uL (4.30-5.90); RDW 13.5 % (11.5-15.5); WBC 8.9 k/uL (3.8-10.6)
[2024-06-26 01:56] VITALS: RESP 16
[2024-06-26 02:22] LABS: Appearance,Urine Clear (Clear); Bilirubin,Urine Negative (Negative); Blood,Urine Negative (Negative); Color,Urine Colorless; Glucose,Urine (UA) Negative (Negative); Ketones,Urine Negative (Negative); Leukocyte Esterase,Urine Negative (Negative); Nitrite,Urine Negative (Negative); Protein,Urine Negative (Negative); Specific Gravity,Urine 1.043 (1.001-1.035); Urobilinogen,Urine <2.0 mg/dL (<2.0)
--- NOTE | 2024-06-26 04:48 | CT ---
EXAMINATION TYPE: CT abdomen pelvis w con DATE OF EXAM: 06/26/2024 COMPARISON: Prior CT March 27, 2020 HISTORY: Pt complaining of R sided abdominal pain. pt states feels similar to Diverticulitis. Pt sta seb he also had had diarrhea. CT DLP: 1124.7 mGycm, Automated Exposure Control for Dose Reduction was Utilized. CONTRAST: CT scan of the abdomen and pelvis is performed without oral and with IV Contrast, patient injected wi th 100 mL of Isovue 300. FINDINGS: LUNG BASES: No significant abnormality is appreciated. LIVER/GB: Cholecystectomy clips are redemonstrated. Liver remains diffusely low dense consistent with diffuse fatty infiltrative hepatocellular disease PANCREAS: No significant abnormality is seen. SPLEEN: No significant abnormality is seen. ADRENALS: No significant abnormality is seen. KIDNEYS: No significant abnormality is seen. BOWEL: Surgical sutures near the hepatic flexure are now seen. No abnormal small or large bowel dilat ation. Mild to moderate wall thickening mid transverse colon. PROSTATE/SEMINAL VESICLES: Enlarged prostate consistent with BPH. LYMPH NODES: No greater than 1cm abdominal or pelvic lymph nodes are appreciated. OSSEOUS STRUCTURES: Moderate disc space narrowing with vacuum disc phenomenon at lumbosacral junction . OTHER: No significant additional abnormality is seen. IMPRESSION: Possible uncomplicated acute colitis versus product of poor distention.
--- NOTE | 2024-06-26 04:55 | ED ---
Abdominal Pain HPI - General Chief Complaint: Abdominal Pain Stated Complaint: right sided abdominal pain Time Seen by Provider: 06/25/24 23:22 Source: patient Mode of arrival: ambulatory Limitations: no limitations - History of Present Illness Initial Comments: 58-year-old male presenting with chief complaint of abdominal pain. Pain started several days ago. Primarily located on the right side but does have some discomfort in the lower abdomen as well. Pain is colicky in nature and has been getting worse. He also admits to diarrhea. No vomiting. He does have history of diverticulitis and states that this feels similar. No fevers. No dysuria or hematuria. - Related Data Home Medications Medication Instructions Recorded Confirmed Losartan [Cozaar] 50 mg PO HS 09/12/21 08/17/22 Metoprolol Succinate [Toprol XL] 50 mg PO HS 09/12/21 08/17/22 Previous Rx's Medication Instructions Recorded Cyclobenzaprine [Flexeril] 10 mg PO TID PRN #15 tab 08/17/22 methylPREDNISolone Dose Pack 4 mg PO DIRECTED #1 packet 08/17/22 [Medrol Dose Pack] Ciprofloxacin HCl [Cipro] 500 mg PO Q12HR 7 Days #14 tab 06/26/24 metroNIDAZOLE [Flagyl] 500 mg PO BID 7 Days #14 tab 06/26/24 Allergies Allergy/AdvReac Type Severity Reaction Status Date / Time Penicillins Allergy Swelling Verified 06/25/24 23:18 Review of Systems ROS Statement: Those systems with pertinent positive or pertinent negative responses have been documented in the HPI. ROS Other: All systems not noted in ROS Statement are negative. Past Medical History Past Medical History: Hypertension Additional Past Medical History / Comment(s): SEE CARDIOLOGY HISTORY BY DR. AGUERO. diverticulitis with abscess. COVID 2020. History of Any Multi-Drug Resistant Organisms: None Reported Past Surgical History: Bowel Resection, Cholecystectomy Additional Past Surgical History / Comment(s): BOWEL RESECTION. vasectomy Past Anesthesia/Blood Transfusion Reactions: Previous Problems w/ Anesthesia Additional Past Anesthesia/Blood Transfusion Reaction / Comment(s): difficult intubation with cholecystectomy intubated through nose Past Psychological History: No Psychological Hx Reported Smoking Status: Former smoker Past Alcohol Use History: Occasional Past Drug Use History: None Reported - Past Family History Father Family Medical History: Hypertension Additional Family Medical History / Comment(s): heart issues with blood vessels. Mother Family Medical History: No Reported History Additional Family Medical History / Comment(s): colitis General Exam Limitations: no limitations General appearance: alert, in no apparent distress Head exam: Present: atraumatic, normocephalic Eye exam: Present: normal appearance, EOMI Neck exam: Present: normal inspection. Absent: meningismus Respiratory exam: Present: normal lung sounds bilaterally. Absent: respiratory distress, wheezes, rales, rhonchi, stridor Cardiovascular Exam: Present: regular rate, normal rhythm, normal heart sounds. Absent: systolic murmur, diastolic murmur, rubs, gallop, clicks GI/Abdominal exam: Present: soft, tenderness, guarding. Absent: distended, rebound, rigid Neurological exam: Present: alert, oriented X3 Psychiatric exam: Present: normal affect, normal mood Skin exam: Present: warm, dry Course Vital Signs 06/25/24 06/26/24 06/26/24 23:14 01:55 03:14 Temperature 98.0 F Pulse Rate 74 74 80 Respiratory 17 16 16 Rate Blood Pressure 176/105 147/88 151/94 O2 Sat by Pulse 97 96 98 Oximetry 06/26/24 05:13 Temperature Pulse Rate 66 Respiratory 16 Rate Blood Pressure 145/90 O2 Sat by Pulse 97 Oximetry Medical Decision Making - Medical Decision Making Was pt. sent in by a medical professional or institution (BRANDON Luther, WOOD [employer]ATER, urgent care, hospital, or prison...) When possible be specific @ -No Did you speak to anyone other than the patient for history (EMS, parent, family, police, friend...)? What history was obtained from this source @ -No Did you review nursing and triage notes (agree or disagree)? Why? @ -I reviewed and agree with nursing and triage notes Were old charts reviewed (outside hosp., previous admission, EMS record, old EK G, old radiological studies, urgent care reports/EKG's, prison records)? Report findings @ -No old charts were reviewed Differential Diagnosis (chest pain, altered mental status, abdominal pain women, abdominal pain men, vaginal bleeding, weakness, fever, dyspnea, syncope, headache, dizziness, GI bleed, back pain, seizure, CVA, palpatations, mental health, musculoskeletal)? @ -[facility] Differential Abdominal Pain Men: Appendicitis, cholecystitis, diverticulosis, ischemic bowel, pancreatitis, hepatitis, UTI, gastroenteritis, AAA, incarcerated hernia, bowel obstruction, constipation, inflammatory bowel, hepatitis, peptic ulcer disease, splenic infarction, perforated viscus, testicular torsion... This is not meant to be an all-inclusive list EKG interpreted by me (3pts min.). @ -As above X-rays interpreted by me (1pt min.). @ -None done CT interpreted by me (1pt min.). @ -CT shows possible uncomplicated acute colitis versus product of poor distention U/S interpreted by me (1pt. min.). @ -None done What testing was considered but not performed or refused? (CT, X-rays, U/S, labs )? Why? @ -None What meds were considered but not given or refused? Why? @ -None Did you discuss the management of the patient with other professionals (professionals i.e. , PA, WOOD COATER, lab, RT, psych nurse, social sciences instructor, nickel plant operator, teacher, hospital chief financial officer, test case developer)? Give summary @ -No Was smoking cessation discussed for >3mins.? @ -No Was critical care preformed (if so, how long)? @ -No Were there social determinants of health that impacted care today? How? (Homelessness, low income, unemployed, alcoholism, drug addiction, transportation, low edu. Level, literacy, decrease access to med. care, custodial, rehab)? @ -No Was there de-escalation of care discussed even if they declined (Discuss DNR or withdrawal of care, Hospice)? DNR status @ -No What co-morbidities impacted this encounter? (DM, HTN, Smoking, COPD, CAD, Cancer, CVA, ARF, Chemo, Hep., AIDS, mental health diagnosis, sleep apnea, morbid obesity)? @ -None Was patient admitted / discharged? Hospital course, mention meds given and route, prescriptions, significant lab abnormalities, going to OR and other pertinent info. @ -58-year-old male presenting with chief complaint of right-sided abdominal pain. Admits to diarrhea. On exam there is tenderness guarding and rebound. No leukocytosis or anemia. Urine shows no infectious process or bleeding. CT shows colitis. Patient will be treated with metronidazole and Cipro due to penicillin allergy. He is educated on today's findings and treatment plan. Discharged home. Follow-up with PCP. Report back to ER with any new or worsening symptoms. Discussed return parameters and answered all questions. Patient conveyed verbal understanding and agreed to the plan. I discussed this case in detail with my attending Undiagnosed new problem with uncertain prognosis? @ -No Drug Therapy requiring intensive monitoring for toxicity (Heparin, Nitro, Insuli n, Cardizem)? @ -No Were any procedures done? @ -No Diagnosis/symptom? @ -Colitis Acute, or Chronic, or Acute on Chronic? @ -Acute Uncomplicated (without systemic symptoms) or Complicated (systemic symptoms)? @ -Uncomplicated Side effects of treatment? @ -No Exacerbation, Progression, or Severe Exacerbation? @ -No Poses a threat to life or bodily function? How? (Chest pain, USA, [place], pneumonia, PE, COPD, DKA, ARF, appy, cholecystitis, CVA, Diverticulitis, Homicidal, Suicidal, threat to staff... and all critical care pts) @ -No - Lab Data Result diagrams: 06/25/24 23:51 06/25/24 23:51 Lab Results 06/25/24 06/25/24 06/25/24 Range/Units 23:51 23:51 23:51 WBC 8.9 (3.8-10.6) k/uL RBC 5.38 (4.30-5.90) m/uL Hgb 16.4 (13.0-17.5) gm/dL Hct 47.4 (39.0-53.0) % MCV 88.2 (80.0-100.0) fL MCH 30.4 (25.0-35.0) pg MCHC 34.5 (31.0-37.0) g/dL RDW 13.5 (11.5-15.5) % Plt Count 289 (150-450) k/uL MPV 8.1 Neutrophils % 59 % Lymphocytes % 31 % Monocytes % 6 % Eosinophils % 2 % Basophils % 1 % Neutrophils # 5.3 (1.3-7.7) k/uL Lymphocytes # 2.7 (1.0-4.8) k/uL Monocytes # 0.6 (0-1.0) k/uL Eosinophils # 0.2 (0-0.7) k/uL Basophils # 0.1 (0-0.2) k/uL Sodium 139 (137-145) mmol/L Potassium 3.8 (3.5-5.1) mmol/L Chloride 105 (98-107) mmol/L Carbon Dioxide 25 (22-30) mmol/L Anion Gap 9 mmol/L BUN 17 (9-20) mg/dL Creatinine 0.99 (0.66-1.25) mg/dL Est GFR (CKD-EPI)AfAm >90 (>60 ml/min/1.73 sqM) Est GFR (CKD-EPI)NonAf 85 (>60 ml/min/1.73 sqM) Glucose 80 (74-99) mg/dL Plasma Lactic Acid Ronnie 1.3 (0.7-2.0) mmol/L Calcium 9.9 (8.4-10.2) mg/dL Total Bilirubin 0.9 (0.2-1.3) mg/dL AST 40 (17-59) U/L ALT 51 H (4-49) U/L Alkaline Phosphatase 52 (38-126) U/L Total Protein 7.5 (6.3-8.2) g/dL Albumin 4.7 (3.5-5.0) g/dL Amylase 52 (30-110) U/L Lipase 76 (23-300) U/L Urine Color Urine Appearance (Clear) Urine pH (5.0-8.0) Ur Specific [place] (1.001-1.035) Urine Protein (Negative) Urine Glucose (UA) (Negative) Urine Ketones (Negative) Urine Blood (Negative) Urine Nitrite (Negative) Urine Bilirubin (Negative) Urine Urobilinogen (<2.0) mg/dL Ur Leukocyte Esterase (Negative) 06/26/24 Range/Units 01:50 WBC (3.8-10.6) k/uL RBC (4.30-5.90) m/uL Hgb (13.0-17.5) gm/dL Hct (39.0-53.0) % MCV (80.0-100.0) fL MCH (25.0-35.0) pg MCHC (31.0-37.0) g/dL RDW (11.5-15.5) % Plt Count (150-450) k/uL MPV Neutrophils % % Lymphocytes % % Monocytes % % Eosinophils % % Basophils % % Neutrophils # (1.3-7.7) k/uL Lymphocytes # (1.0-4.8) k/uL Monocytes # (0-1.0) k/uL Eosinophils # (0-0.7) k/uL Basophils # (0-0.2) k/uL Sodium (137-145) mmol/L Potassium (3.5-5.1) mmol/L Chloride (98-107) mmol/L Carbon Dioxide (22-30) mmol/L Anion Gap mmol/L BUN (9-20) mg/dL Creatinine (0.66-1.25) mg/dL Est GFR (CKD-EPI)AfAm (>60 ml/min/1.73 sqM) Est GFR (CKD-EPI)NonAf (>60 ml/min/1.73 sqM) Glucose (74-99) mg/dL Plasma Lactic Acid Ronnie (0.7-2.0) mmol/L Calcium (8.4-10.2) mg/dL Total Bilirubin (0.2-1.3) mg/dL AST (17-59) U/L ALT (4-49) U/L Alkaline Phosphatase (38-126) U/L Total Protein (6.3-8.2) g/dL Albumin (3.5-5.0) g/dL Amylase (30-110) U/L Lipase (23-300) U/L Urine Color Colorless Urine Appearance Clear (Clear) Urine pH 7.0 (5.0-8.0) Ur Specific [place] 1.043 H (1.001-1.035) Urine Protein Negative (Negative) Urine Glucose (UA) Negative (Negative) Urine Ketones Negative (Negative) Urine Blood Negative (Negative) Urine Nitrite Negative (Negative) Urine Bilirubin Negative (Negative) Urine Urobilinogen <2.0 (<2.0) mg/dL Ur Leukocyte Esterase Negative (Negative) Disposition Clinical Impression: Colitis Disposition: HOME SELF-CARE Condition: Good Instructions (If sedation given, give patient instructions): Colitis (ED) Additional Instructions: Follow-up with PCP. Report back to ER with any new or worsening symptoms. Take medication as prescribed. Prescriptions: Ciprofloxacin HCl [Cipro] 500 mg PO Q12HR 7 Days #14 tab metroNIDAZOLE [Flagyl] 500 mg PO BID 7 Days #14 tab Is patient prescribed a controlled substance at d/c from ED?: No Referrals: None,Stated [Primary Care Provider] - 1-2 days Meeta Herron MD [STAFF PHYSICIAN] - 1-2 days Time of Disposition: 04:55
[2024-06-26 05:14] VITALS: BP 145/90; PULSE 66
== END 2024-06-26 05:14 | disposition home or self-care (01) ==
LOC: EC 23:07
DX: K52.9 Noninfective gastroenteritis and colitis, unspecified (principal); Z86.16 Personal history of COVID-19; Z87.891 Personal history of nicotine dependence; Z88.0 Allergy status to penicillin; Z90.49 Acquired absence of other specified parts of digestive tract
CPT/HCPCS: 36415; 80053; 82150; 83605; 83690; 85025; 81003; 74177; 99284; 96374; 96375; 96361; J2270; J1885; Q9967

== ENCOUNTER → 2024-08-15 | Outpatient (CLI) | payer BC ==
[2024-08-15 16:10] LABS: ALT 19 U/L (10-49); AST 13 U/L (14-35); Albumin 4.4 g/dL (3.8-4.9); Albumin/Globulin Ratio 1.76 Ratio (1.60-3.17); Alkaline Phosphatase 64 U/L (41-126); Blood Urea Nitrogen 15.7 mg/dL (9.0-27.0); Calcium 9.8 mg/dL (8.7-10.3); Carbon Dioxide 19.8 mmol/L (21.6-31.8); Chloride 104 mmol/L (96-109); Chol/HDL Ratio 4.72 Ratio; Globulin 2.5 g/dL (1.6-3.3); Glucose 119 mg/dL (70-110); LDL Cholesterol,Calculated 115.1 mg/dL (0.0-131.0); Potassium 4.4 mmol/L (3.5-5.5); Sodium 140 mmol/L (135-145); Total Bilirubin 0.3 mg/dL (0.3-1.2); Total Protein 6.9 g/dL (6.2-8.2)
== END | disposition home or self-care (01) ==
LOC: LABWHC1 09:14
PROVIDERS: ATTEND Internal Medicine
CPT/HCPCS: 36415; 80053; 80061; 83036; 84439; 84443

== ENCOUNTER 2025-04-02 19:23 | Emergency (ER) | payer BC ==
--- NOTE | 2025-04-02 20:07 | ED ---
General Adult HPI - General Chief complaint: Back Pain/Injury Stated complaint: LOW BACK PAIN, ABSCESS IN FACE Time Seen by Provider: 04/02/25 19:42 Source: patient, RN notes reviewed Mode of arrival: ambulatory Limitations: no limitations - History of Present Illness Initial comments: 59-year-old male presents to the emergency department for evaluation of low back pain. Patient notes that this has been worsening over the past 3 days. He notes that he has had episodes of similar pain in the past. He notes a history of degenerative disc disease. He denies any loss of bowel or bladder function, saddle anesthesia, paresthesias in the extremities. Denies any recent fever, chills. Patient is also concerned because he has some pain in his upper dentition and swelling to the right side of his face. He was concern for dental abscess. - Related Data Home Medications Medication Instructions Recorded Confirmed Losartan [Cozaar] 50 mg PO HS 09/12/21 08/17/22 Metoprolol Succinate [Toprol XL] 50 mg PO HS 09/12/21 08/17/22 Previous Rx's Medication Instructions Recorded Cyclobenzaprine [Flexeril] 10 mg PO TID PRN #15 tab 08/17/22 methylPREDNISolone Dose Pack 4 mg PO DIRECTED #1 packet 08/17/22 [Medrol Dose Pack] Ciprofloxacin HCl [Cipro] 500 mg PO Q12HR 7 Days #14 tab 06/26/24 metroNIDAZOLE [Flagyl] 500 mg PO BID 7 Days #14 tab 06/26/24 Clindamycin [Cleocin] 450 mg PO Q8HR #63 capsule 04/02/25 Allergies Allergy/AdvReac Type Severity Reaction Status Date / Time Penicillins Allergy Swelling Verified 04/02/25 19:37 Review of Systems ROS Statement: Those systems with pertinent positive or pertinent negative responses have been documented in the HPI. ROS Other: All systems not noted in ROS Statement are negative. Past Medical History Past Medical History: Hypertension Additional Past Medical History / Comment(s): SEE CARDIOLOGY HISTORY BY DR. AGUERO. diverticulitis with abscess. COVID 2020. History of Any Multi-Drug Resistant Organisms: None Reported Past Surgical History: Bowel Resection, Cholecystectomy Additional Past Surgical History / Comment(s): BOWEL RESECTION. vasectomy Past Anesthesia/Blood Transfusion Reactions: Previous Problems w/ Anesthesia Additional Past Anesthesia/Blood Transfusion Reaction / Comment(s): difficult intubation with cholecystectomy intubated through nose Past Psychological History: No Psychological Hx Reported Smoking Status: Former smoker Past Alcohol Use History: Occasional Past Drug Use History: None Reported - Past Family History Father Family Medical History: Hypertension Additional Family Medical History / Comment(s): heart issues with blood vessels. Mother Family Medical History: No Reported History Additional Family Medical History / Comment(s): colitis General Exam Limitations: no limitations General appearance: alert, in no apparent distress Head exam: Present: atraumatic, normocephalic, normal inspection Eye exam: Present: normal appearance, PERRL, EOMI. Absent: scleral icterus, conjunctival injection, periorbital swelling ENT exam: Present: mucous membranes moist, other (Overall poor dentition with no visible drainable abscess formation) Respiratory exam: Present: normal lung sounds bilaterally. Absent: respiratory distress, wheezes, rales, rhonchi, stridor Cardiovascular Exam: Present: regular rate, normal rhythm, normal heart sounds. Absent: systolic murmur, diastolic murmur, rubs, gallop, clicks Extremities exam: Present: normal inspection, full ROM, normal capillary refill. Absent: tenderness, pedal edema, joint swelling, calf tenderness Back exam: Present: normal inspection Neurological exam: Present: alert, oriented X3 Psychiatric exam: Present: normal affect, normal mood Skin exam: Present: warm, dry, intact, normal color. Absent: rash Course Vital Signs 04/02/25 04/02/25 04/02/25 19:37 21:08 21:50 Temperature 98.3 F 98.6 F Pulse Rate 84 68 68 Respiratory 20 18 18 Rate Blood Pressure 172/108 171/103 165/91 O2 Sat by Pulse 98 95 96 Oximetry Medical Decision Making - Medical Decision Making Was pt. sent in by a medical professional or institution (, PA, MASTER ESTHETICIAN, urgent care, hospital, or senior living...) When possible be specific @ -No Did you speak to anyone other than the patient for history (EMS, parent, family, police, friend...)? What history was obtained from this source @ -No Did you review nursing and triage notes (agree or disagree)? Why? @ -I reviewed and agree with nursing and triage notes Were old charts reviewed (outside hosp., previous admission, EMS record, old EKG, old radiological studies, urgent care reports/EKG's, senior living records)? Report findings @ -No old charts were reviewed Differential Diagnosis (chest pain, altered mental status, abdominal pain women, abdominal pain men, vaginal bleeding, weakness, fever, dyspnea, syncope, headache, dizziness, GI bleed, back pain, seizure, CVA, palpatations, mental health, musculoskeletal)? @ -Differential Back Pain: Strain, zoster, cauda equina syndrome, epidural abscess, vertebral osteomyelitis, discitis, fracture, subluxation, disc herniation, DJD, spinal stenosis, dissection, AAA, pancreatitis, peptic ulcer disease, pyelonephritis, kidney stone, this is not meant to be an all-inclusive list. EKG interpreted by me (3pts min.). @ -None X-rays interpreted by me (1pt min.). @ -None done CT interpreted by me (1pt min.). @ -None done U/S interpreted by me (1pt. min.). @ -None done What testing was considered but not performed or refused? (CT, X-rays, U/S, labs)? Why? @ -None What meds were considered but not given or refused? Why? @ -None Did you discuss the management of the patient with other professionals (professionals i.e. , PA, MASTER ESTHETICIAN, lab, RT, psych nurse, social services, industrial maintenance millwright, teacher, defence force senior officer, vocational case manager)? Give summary @ -No Was smoking cessation discussed for >3mins.? @ -No Was critical care preformed (if so, how long)? @ -No Were there social determinants of health that impacted care today? How? (Homelessness, low income, unemployed, alcoholism, drug addiction, transportation, low edu. Level, literacy, decrease access to med. care, fpc, rehab)? @ -No Was there de-escalation of care discussed even if they declined (Discuss DNR or withdrawal of care, Hospice)? DNR status @ -No What co-morbidities impacted this encounter? (DM, HTN, Smoking, COPD, CAD, Cancer, CVA, ARF, Chemo, Hep., AIDS, mental health diagnosis, sleep apnea, morbid obesity)? @ -None Was patient admitted / discharged? Hospital course, mention meds given and route, prescriptions, significant lab abnormalities, going to OR and other pertinent info. @ -Discharge. Patient presented emergency department for evaluation of back pain. He reports episodes of similar pain in the past. He was provided medication for pain control in the emergency department. He does note improvement in his symptoms following this. Patient also was concerned about a possible dental abscess. Patient will be started on antibiotics. He is understanding agreeable with discharge plan. Patient stable at time of discharge. Case discussed with Dr. Person Undiagnosed new problem with uncertain prognosis? @ -No Drug Therapy requiring intensive monitoring for toxicity (Heparin, Nitro, Insulin, Cardizem)? @ -No Were any procedures done? @ -No Diagnosis/symptom? @ -Dental abscess, back pain Acute, or Chronic, or Acute on Chronic? @ -Acute Uncomplicated (without systemic symptoms) or Complicated (systemic symptoms)? @ -Uncomplicated Side effects of treatment? @ -No Exacerbation, Progression, or Severe Exacerbation? @ -No Poses a threat to life or bodily function? How? (Chest pain, [place], [place], pneumonia, PE, COPD, DKA, ARF, appy, cholecystitis, CVA, Diverticulitis, Homicidal, Suicidal, threat to staff... and all critical care pts) @ -No Disposition Clinical Impression: Dental abscess, Back pain Disposition: HOME SELF-CARE Condition: Stable Instructions (If sedation given, give patient instructions): Dental Abscess (ED), Acute Low Back Pain (ED) Prescriptions: Clindamycin [Cleocin] 450 mg PO Q8HR #63 capsule Is patient prescribed a controlled substance at d/c from ED?: No Referrals: Pollo Treadwell MD [Primary Care Provider] - 1-2 days
[2025-04-02] MEDS: CLINDAMYCIN 150 MG CAP PO STA (20:39)
[2025-04-02] MEDS: HYDROcodone/APAP 5-325MG 1 EACH TAB PO STA (20:40)
[2025-04-02] MEDS: ACET/COD 300 MG/30 MG STARTER PACK 6 TAB BTL PO STA (20:42)
[2025-04-02] MEDS: KETOROLAC 15 MG/ML 1 ML VIAL IM STA (20:43)
[2025-04-02] MEDS: LIDOCAINE 4% PATCH TOPICAL ONE (20:46)
[2025-04-02 21:09] VITALS: PULSE 68; RESP 18
[2025-04-02 22:03] VITALS: BP 165/91; TEMP 98.6
== END 2025-04-02 21:55 | disposition home or self-care (01) ==
LOC: EC 19:23
DX: K04.7 Periapical abscess without sinus (principal); M54.9 Dorsalgia, unspecified; Z87.891 Personal history of nicotine dependence; Z88.0 Allergy status to penicillin
CPT/HCPCS: 99283; 96372; J1885

== ENCOUNTER → 2025-04-27 | Outpatient (CLI) | payer BC ==
--- NOTE | 2025-04-27 11:29 | US ---
EXAMINATION TYPE: US arterial LE single level DATE OF EXAM: 04/27/2025 10:42 AM COMPARISONS: None. CLINICAL INDICATION: Male, 59 years old with history of I73.9 PERIPHERAL VASCULAR DISEASE, UNSPECIFIE D; Legs feels heavy at end of day TECHNIQUE: Systolic pressures were taken of the upper and lower extremity arteries with ankle-brachia l indices and toe brachial indices calculated bilaterally. History of: Smoker: previous Hypertension: Takes medication Diabetic: no Hyperlipidemia: no TIA/CVA: No Previous Vascular Surgery: No CAD: no IL: no Vascular Ulcers: no Claudication: no Gangrene: no FINDINGS: Doppler Waveforms: Right: triphasic Left: triphasic Brachial Artery systolic pressure: Right: 134 Left: 138 Posterior Tibial artery systolic pressure: Right: 188 Left: 192 Dorsalis Pedis artery systolic pressure: Right: 193 Left: 163 Ankle-Brachial Indices: Right: 1.4 Left: 1.4 (Normal > 0.6; Mild 0.35 - 0.59, Moderate 0.12 - 0.34, Severe <0.12) WNL IMPRESSION: MORENO: Right: Normal 0.9 - 1.4, Recommendation: None Left: Normal 0.9 - 1.4, Recommendation: None [facility], , 04/27/2025 11:27 AM
== END | disposition home or self-care (01) ==
LOC: RADUSWWP 10:09
DX: I73.9 Peripheral vascular disease, unspecified (principal); I10 Essential (primary) hypertension
CPT/HCPCS: 93922